=== PATIENT | female | born 1975 | race Caucasian/White ===

== ENCOUNTER 2022-09-26 16:14 | Emergency (ER) | payer OTHER, MEDICAID, SELFPAY ==
[2022-09-26 16:18] VITALS: BP 114/58; PULSE 100; RESP 16; TEMP 36.6; O2SAT 96; BMI 41.6
--- NOTE | 2022-09-26 17:14 | ED.RECABL ---
HPI - Recheck/Abnormal Lab/Rx <ALESSANDRA Covarrubias - Last Filed: 09/26/22 17:22> General Chief Complaint: Recheck/Abnormal Lab/Rx Stated Complaint: lumps/prescription refill Time Seen by Provider: 09/26/22 16:55 Source: patient Mode of arrival: Ambulatory History of Present Illness HPI narrative: This is a 47-year-old female presents emergency department complaining of some bumps on her skin from injecting drugs proximally 1 week ago which are healing without redness but patient was concerned. She also presents for a medication refill of her genfibrizol and lisinopril medications. She takes these for hypertension and hyperlipidemia. She denies fevers, chills, nausea vomiting, swelling, redness or any other signs related to her bumps on her skin just wanted them evaluated. She has multiple antibiotic allergies. Related Data Previous Rx's Medication Instructions Recorded gemfibrozil 600 mg tablet 600 mg PO BID #30 tabs 09/26/22 lisinopril 40 mg tablet 40 mg PO DAILY #30 tabs 09/26/22 lidocaine 4 % topical patch 1 patch topical DAILY PRN pain #10 10/18/22 ea methocarbamol 500 mg tablet 500 mg PO TID #30 tabs 10/18/22 methylprednisolone 4 mg tablets in See Rx Instructions PO .COMPLEX 10/18/22 a dose pack (Medrol (Durga)) #21 ea Allergies Allergy/AdvReac Type Severity Reaction Status Date / Time topiramate [From TOPAMAX] Allergy Unknown Verified 10/18/22 08:57 bupropion [From Wellbutrin] Allergy Verified 10/18/22 08:57 cephalexin [From Keflex] Allergy Verified 10/18/22 08:57 Iodinated Contrast Media Allergy Verified 10/18/22 08:57 sulfamethoxazole Allergy Verified 10/18/22 08:57 [From Bactrim] trimethoprim [From Bactrim] Allergy Verified 10/18/22 08:57 Review of Systems <ALESSANDRA Covarrubias - Last Filed: 09/26/22 17:22> Review of Systems ROS Unobtainable: All systems reviewed & are unremarkable except as noted in HPI and below Patient History <ALESSANDRA Covarrubias - Last Filed: 09/26/22 17:22> Surgical History History of tonsillectomy Status post delivery Status post delivery Status post delivery Status post cholecystectomy Status post tubal ligation Family History Father Heart disease Hypertension Heart attack Mother Mental health problem Hypertension Social History Smoking Status: Former smoker Smoking Status: Current every day smoker tobacco type: cigarettes Substance Use Type: does not use Exam <ALESSANDRA Covarrubias - Last Filed: 09/26/22 17:22> Narrative Exam Narrative: Reviewed vitals signs and nursing notes. General: Pleasant, sitting upright, in no acute distress, well groomed, afebrile HEENT: symmetrical facial expressions CV: regular rate and rhythm, warm extremities MSK: moves all extremities, no weakness, normal tone, ambulatory without deficit Skin: brisk capillary refill, 3 lumps related to previous injection sites, 1 to the left breast, 1 to the right forearm, in 1 2 the right buttock, patient states they are IM injections, no surrounding erythema, no fluctuance, no foreign body, no exquisite tenderness, no evidence of infection. Neuro: clear speech and normal cognition, A&O x3, GCS 15, no focal motor or sensation deficits Initial Vital Signs Initial Vital Signs: Vital Signs Temperature 97.8 F 09/26/22 16:18 Pulse Rate 100 H 09/26/22 16:18 Respiratory Rate 16 09/26/22 16:18 Blood Pressure 114/58 L 09/26/22 16:18 Pulse Oximetry 96 09/26/22 16:18 Oxygen Delivery Method Room Air 09/26/22 16:18 <Les Ochoa MD - Last Filed: 10/22/22 21:42> Initial Vital Signs Initial Vital Signs: Vital Signs Temperature 97.8 F 09/26/22 16:18 Pulse Rate 100 H 09/26/22 16:18 Respiratory Rate 16 09/26/22 16:18 Blood Pressure 114/58 L 09/26/22 16:18 Pulse Oximetry 96 09/26/22 16:18 Oxygen Delivery Method Room Air 09/26/22 16:18 Course <ALESSANDRA Covarrubias - Last Filed: 09/26/22 17:22> Vital Signs Vital signs: Vital Signs - 8 hr 09/26/22 16:18 Temperature 97.8 F Pulse Rate 100 H Respiratory Rate 16 Blood Pressure 114/58 L Pulse Oximetry 96 Oxygen Delivery Method Room Air <Les Ochoa MD - Last Filed: 10/22/22 21:42> Vital Signs Vital signs: Vital Signs - 8 hr 09/26/22 16:18 Temperature 97.8 F Pulse Rate 100 H Respiratory Rate 16 Blood Pressure 114/58 L Pulse Oximetry 96 Oxygen Delivery Method Room Air MDM - Recheck/Abnormal Lab/Rx <ALESSANDRA Covarrubias - Last Filed: 09/26/22 17:22> MDM Narrative Medical decision making narrative: Chief Complaint: Bumps on skin and medication refill Multiple etiologies for patient's complaint considered including, but not limited to: Cellulitis, abscess, MRSA, medication refill I have independently reviewed the patient's vital signs and nursing notes as well as prior records if available. Patient's lesions are not erythematous or fluctuant, they are firm approximally 1 cm each and normal skin tone related to previous IM injection sites, I do not suspect any infection at this time. Patient was reassured, she was given refills of her medications of lisinopril and gemfibrozil for 3 months and encouraged to follow up with primary care and given contact information to establish primary care here. She moved here approximately 5 days ago and does not have this set up. She understands to return to the emergency department if she develops signs of infection, fevers or chills, nausea vomiting. Social considerations that may affect disposition: none Questions are addressed and there is agreement with the plan and for follow-up. I consulted with the ED attending physician Dr. Ochoa as needed for higher level of care considerations and they were available for discussion and recommendations regarding plan of care and diagnostic testing. Patient is appropriate for outpatient management. Discharge Plan Departure Patient Disposition: Home Clinical Impression: Medication refill Activity Restrictions/Additional Instructions: *You have been diagnosed with a medication refill. 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 *What to do: *Please continue to take your regular medications as directed. [x ] New medication prescriptions sent to your pharmacy: [[facility] [place] ] [ ] New medication written as a paper prescription [ ] No new medications given *Please call and schedule follow up with your primary care provider in 2-3 days, at least for an update. Let them know you were seen in the Emergency Department for the above problem. We will electronically transmit a record of today's note if your PCP or specialist is in our system. *If you do not have a primary care provider please contact [phone] to establish care with one of the [facility] primary care providers. *Return to the Emergency Department for worsening symptoms, inability to keep liquids down, fever greater than 101F, chills, or other concerning symptom. Prescriptions: New gemfibrozil 600 mg tablet 600 mg PO BID Qty: 30 3RF lisinopril 40 mg tablet 40 mg PO DAILY Qty: 30 3RF No Action methocarbamol 500 mg tablet 500 mg PO TID Qty: 30 0RF methylprednisolone [Medrol (Durga)] 4 mg tablets,dose pack See Rx Instructions .ROUTE .COMPLEX Qty: 21 0RF Rx Instructions: orally per package directions lidocaine 4 % adhesive patch,medicated 1 patch topical DAILY PRN (Reason: pain) Qty: 10 0RF Stand Alone Forms: Patient Portal/API <Les Ochoa MD - Last Filed: 10/22/22 21:42> [facility] Attestation: I was immediately available in the department for consultation. This documentation has been reviewed and I agree with assessment and plan. Supervised by Les Ochoa MD
[2022-09-26 17:20] VITALS: BP 118/87; PULSE 90; RESP 18; O2SAT 99
== END 2022-09-26 17:21 | disposition home or self-care (01) ==
PROVIDERS: Emergency Provider Nurse Practitioner Critical Care Medicine
DX: Z76.0 Encounter for issue of repeat prescription (principal); L08.9 Local infection of the skin and subcutaneous tissue, unspecified
CPT/HCPCS: 99281

== ENCOUNTER 2022-10-15 16:24 | Emergency (ER) | payer OTHER, MEDICAID, SELFPAY ==
[2022-10-15 17:06] VITALS: BP 139/85; PULSE 103; RESP 16; TEMP 36.9; O2SAT 96; BMI 42.3
[2022-10-15 17:32] LABS: Add Manual Diff / Slide Review NO; Basophils Absolute Auto 100 /uL (0-100); Basophils Percent Auto 1.1 % (0-2); Eosinophils Absolute Auto 200 /uL (0-450); Hematocrit 37.7 % (36-46); Hemoglobin 12.6 g/dL (12.0-16.0); Lymphocytes Absolute Auto 2100 /uL (1100-4500); Lymphocytes Percent Auto 26.9 % (25-40); Mean Corpuscular HGB Conc 33.4 % (30-36); Mean Corpuscular Volume 80.9 fL (80-100); Monocytes Absolute Auto 800 /uL (0-900); Monocytes Percent Auto 9.8 % (3-14); Neutrophils Absolute Auto 4700 /uL (1500-7000); Neutrophils Percent Auto 60.2 % (50-75); Platelet Count 264 X10^3/uL (150-400); Red Blood Cell Count 4.66 X10^6/uL (4.0-5.2); Red Cell Distribution Width 14.2 % (11.6-14.8); White Blood Cell Count 7.8 X10^3/uL (4.5-11.0)
[2022-10-15 17:37] LABS: Alanine Aminotransferase 20 IU/L (<35); Albumin 4.1 g/dL (3.5-5.0); Albumin Globulin Ratio 1.2 (1.0-2.8); Alkaline Phosphatase 126 U/L (38-126); Aspartate Aminotransferase 24 IU/L (14-36); BUN Creatinine Ratio 24.6 (6-22); Bilirubin Total 0.3 mg/dL (0.2-1.3); Blood Urea Nitrogen 15 mg/dL (7-17); Calcium 9.7 mg/dL (8.4-10.2); Carbon Dioxide 24 mmol/L (22-32); Chloride 94 mmol/L (98-107); Estimated Glomerular Filt Rate > 60 mL/min (>60); Globulin 3.4 g/dL (1.7-4.1); Glucose 262 mg/dL (70-100); HEMOLYSIS 25 (0-50); Lipase 96 U/L (23-300); Potassium 4.6 mmol/L (3.4-5.1); Sodium 131 mmol/L (137-145); Total Protein 7.5 g/dL (6.3-8.2)
--- NOTE | 2022-10-15 19:14 | DI.RAD.S_ITS ---
PROCEDURE: XR ABDOMEN 1V INDICATIONS: constipation and back pain TECHNIQUE: One view of the abdomen acquired. COMPARISON: None. FINDINGS: Surgical changes and devices: Cholecystectomy clips.. Bowel: There are fluid levels in nondistended right-sided bowel loops. No suspicious air-filled distended small bowel loops to suggest obstruction. Normal quantity of colonic stool present. Soft tissues: 7 mm horizontally oriented ovoid calcification in the abdomen to the left of midline. No other suspicious abdominal calcifications. Visualized solid organ contours appear normal in size. Bones: No suspicious bony lesions. IMPRESSION: 1. Fluid levels in nondilated bowel suggest ileus or enteritis. 2. Nonspecific left abdominal calcification may be enteric, vascular, or urinary. 3. Normal quantity of stool present. Dictated by: Elizabeth Snell M.D. on 10/15/2022 at 20:26 Approved by: Elizabeth Snell M.D. on 10/15/2022 at 20:28
--- NOTE | 2022-10-15 20:57 | DI.CT.S_ITS ---
PROCEDURE: CT ABDOMEN PELVIS WO CON INDICATIONS: Abdominal pain, eval for obstruction TECHNIQUE: Axial sections were acquired from the lung bases to the pubic symphysis. Coronal and sagittal reformats were performed. For radiation dose reduction, the following was used: automated exposure control, adjustment of mA and/or kV according to patient size. COMPARISON: [facility], CR, XR ABDOMEN 1V, 10/15/2022, 19:17. [facility], CT, ABDOMEN/PELVIS WITH CONTRAST, 07/31/2015, 23:51. FINDINGS: Image quality: Excellent. Lung bases: Unremarkable. Heart: No significant findings. URINARY: Kidneys and ureters: Small left renal cortical calcifications. No definite renal or ureteral calculus. No hydronephrosis. Bladder: Normal wall thickness. No stones. ABDOMEN: Liver: Liver is diffusely hypoattenuating, consistent with fatty infiltration. Gallbladder: Status post cholecystectomy. Biliary ducts: Unremarkable. Pancreas: Unremarkable. Spleen: Unremarkable. Adrenal Glands: Unremarkable. Stomach and Bowel: Moderate stool is seen throughout the colon. Small bowel loops and stomach are unremarkable. Peritoneum: No abnormal intraperitoneal fluid. No free air. Ventral Wall: A small collection of fluid measuring 2.9 x 2.5 cm is seen in the subcutaneous tissues in the periumbilical region. Subcutaneous nodules in the bilateral flanks is suspicious for injection granulomas. Abdominal Nodes: No enlarged retroperitoneal or mesenteric lymph nodes. Vessels: Aorta and inferior vena cava are normal in size. PELVIS: Pelvic Organs: Uterus appears to be mildly long gated and is likely here into the anterior abdominal wall. Pelvic Nodes: Unremarkable. Miscellaneous: No inguinal hernias are seen. Bones: Unremarkable. IMPRESSION: 1. No renal or ureteral calculus or hydronephrosis. 2. Small fluid collection is seen in the subcutaneous tissues in the right periumbilical region with mild surrounding inflammatory fat stranding, possibly representing focal soft tissue infection or developing abscess. Approved by: Aiden Franz M.D. on 10/15/2022 at 23:24
--- NOTE | 2022-10-15 20:57 | ED.GENADULT ---
HPI - General Adult General Chief complaint: Abdominal Pain Stated complaint: ABD PAIN , BACK PAIN ,CONSTIPATED 3 DAYS Time Seen by Provider: 10/15/22 19:13 Source: patient Mode of arrival: Ambulatory History of Present Illness HPI narrative: Patient is a 47-year-old female who is here for evaluation of what she thinks is constipation and low back pain. It has been going on for the past 3 days. She has been doing stool softeners for the past week. Also did 1 dose of MiraLax at home. No vomiting. Is still passing flatus. No urinary symptoms. Has had multiple abdominal surgeries in the past. She states she does feel like her abdomen is distended. Related Data Previous Rx's Medication Instructions Recorded gemfibrozil 600 mg tablet 600 mg PO BID #30 tabs 09/26/22 lisinopril 40 mg tablet 40 mg PO DAILY #30 tabs 09/26/22 Allergies Allergy/AdvReac Type Severity Reaction Status Date / Time topiramate [From TOPAMAX] Allergy Unknown Verified 10/15/22 20:47 bupropion [From Wellbutrin] Allergy Verified 10/15/22 20:47 cephalexin [From Keflex] Allergy Verified 10/15/22 20:47 Iodinated Contrast Media Allergy Verified 10/15/22 20:47 sulfamethoxazole Allergy Verified 10/15/22 20:47 [From Bactrim] trimethoprim [From Bactrim] Allergy Verified 10/15/22 20:47 Review of Systems Constitutional Constitutional: Reports system reviewed and no additional complaints, except as documented Gastrointestinal Gastrointestinal: Reports system reviewed and no additional complaints, except as documented Genitourinary Genitourinary: Reports system reviewed and no additional complaints, except as documented Musculoskeletal Musculoskeletal: Reports system reviewed and no additional complaints, except as documented Integumentary/Breasts Skin/Breast: Reports system reviewed and no additional complaints, except as documented Patient History Surgical History History of tonsillectomy Status post delivery Status post delivery Status post delivery Status post cholecystectomy Status post tubal ligation Family History Father Heart disease Hypertension Heart attack Mother Mental health problem Hypertension Social History (Reviewed 08/21/23 @ 23:44 by HENRY Bah Smoking Status: Former smoker Smoking Status: Former smoker tobacco type: cigarettes Substance Use Type: does not use Exam Initial Vital Signs Initial Vital Signs: Vital Signs Temperature 98.5 F 10/15/22 17:06 Pulse Rate 103 H 10/15/22 17:06 Respiratory Rate 16 10/15/22 17:06 Blood Pressure 139/85 10/15/22 17:06 Pulse Oximetry 96 10/15/22 17:06 Oxygen Delivery Method Room Air 10/15/22 17:06 HENDC Head: normal to inspection and normocephalic Resp Effort & Inspection: normal respiratory effort Auscultation: clear to auscultation bilaterally Cardio Rate: regular rate GI Inspection: normal to inspection and distended Palpation: soft, No firm, No guarding and tender Skin General: no rashes or lesions noted Neuro General: patient alert, patient awake, patient oriented x3 and moves all extremities Course Orders Ordered: ED Orders 10/15/22 17:18 Complete Blood Count AUTO DIFF Stat Comprehensive Metabolic Panel Stat Lipase Stat 10/15/22 19:14 XR abdomen 1V Stat 10/15/22 20:57 CT abdomen pelvis wo con Stat Ondansetron HCl (Ondansetron 4 Mg Odt) 4 mg PO NOW PRN PRN Reason: Nausea And Vomiting Ondansetron HCl (Ondansetron 4 Mg/2 Ml Inj) 4 mg IV NOW PRN PRN Reason: Nausea And Vomiting Discontinued Medications Sodium Chloride (Normal Saline 0.9%) 1,000 mls @ 1,000 mls/hr IV BOLUS ONE Stop: 10/15/22 21:56 Last Infusion: 10/15/22 23:17 Dose: 0 mls/hr Documented By: Admin: 10/15/22 21:45 Dose: 1,000 mls/hr Documented By: MENDY Ketorolac Tromethamine (Ketorolac 30 Mg/Ml Vial) 30 mg IV NOW ONE Stop: 10/15/22 21:41 Last Admin: 10/15/22 21:46 Dose: 30 mg Documented By: MENDY Vital Signs Vital signs: Vital Signs - 8 hr 10/15/22 17:06 10/15/22 23:39 Temperature 98.5 F Pulse Rate 103 H 88 Respiratory Rate 16 15 Blood Pressure 139/85 120/79 Pulse Oximetry 96 99 Oxygen Delivery Method Room Air Room Air Medical Decision Making Lab Data Lab results reviewed: Yes I reviewed the patient's lab results. 10/15/22 17:18 10/15/22 17:18 Labs: Lab Results 10/15/22 10/15/22 Range/Units 17:18 17:18 WBC 7.8 (4.5-11.0) X10^3/uL RBC 4.66 (4.0-5.2) X10^6/uL Hgb 12.6 (12.0-16.0) g/dL Hct 37.7 (36-46) % MCV 80.9 (80-100) fL MCH 27.0 (26-34) PG MCHC 33.4 (30-36) % RDW 14.2 (11.6-14.8) % Plt Count 264 (150-400) X10^3/uL Neut % (Auto) 60.2 (50-75) % Lymph % (Auto) 26.9 (25-40) % [place] % (Auto) 9.8 (3-14) % Eos % (Auto) 2.0 (2-4) % Baso % (Auto) 1.1 (0-2) % Neut # (Auto) 4700 (1482-2104) /uL Lymph # (Auto) 2100 (3617-1609) /uL [place] # (Auto) 800 (0-900) /uL Eos # (Auto) 200 (0-450) /uL Baso # (Auto) 100 (0-100) /uL Sodium 131 L (137-145) mmol/L Potassium 4.6 (3.4-5.1) mmol/L Chloride 94 L (98-107) mmol/L Carbon Dioxide 24 (22-32) mmol/L BUN 15 (7-17) mg/dL Creatinine 0.61 (0.52-1.04) mg/dL Estimated GFR > 60 (>60) mL/min BUN/Creatinine Ratio 24.6 H (6-22) Glucose 262 H (70-100) mg/dL Calcium 9.7 (8.4-10.2) mg/dL Total Bilirubin 0.3 (0.2-1.3) mg/dL AST 24 (14-36) IU/L ALT 20 (<35) IU/L Alkaline Phosphatase 126 (38-126) U/L Total Protein 7.5 (6.3-8.2) g/dL Albumin 4.1 (3.5-5.0) g/dL Globulin 3.4 (1.7-4.1) g/dL Albumin/Globulin Ratio 1.2 (1.0-2.8) Lipase 96 (23-300) U/L Point of Care Testing Test Results Negative Urine Dip Bedside Urine Glucose 100 mg/dl Bedside Urine Bilirubin - Negative Bedside Urine Ketone - Negative Urine Specific [place] 1.015 Bedside Urine Occult Blood - Negative Bedside Urine pH 6 Bedside Urine Protein - Negative Bedside Urine Urobilinogen - Negative Bedside Urine Nitrite - Negative Bedside Urine Leukocytes - Negative Esterase Point of care testing: Point of Care Testing Test Results Negative Urine Dip Bedside Urine Glucose 100 mg/dl Bedside Urine Bilirubin - Negative Bedside Urine Ketone - Negative Urine Specific [place] 1.015 Bedside Urine Occult Blood - Negative Bedside Urine pH 6 Bedside Urine Protein - Negative Bedside Urine Urobilinogen - Negative Bedside Urine Nitrite - Negative Bedside Urine Leukocytes - Negative Esterase Imaging Data Abdominal x-ray: Radiologist's Impression: PROCEDURE:? XR ABDOMEN 1V ? INDICATIONS:? constipation and back pain ? TECHNIQUE:? One view of the abdomen acquired.? ? COMPARISON:? None. ? FINDINGS:? ? Surgical changes and devices:? Cholecystectomy clips..? ? Bowel:? There are fluid levels in nondistended right-sided bowel loops.? No suspicious air-filled distended small bowel loops to suggest obstruction.? Normal quantity of colonic stool present. ? Soft tissues: 7 mm horizontally oriented ovoid calcification in the abdomen to the left of midline. No other suspicious abdominal calcifications.? Visualized solid organ contours appear normal in size.? ? Bones:? No suspicious bony lesions.? ? IMPRESSION:? ? 1. Fluid levels in nondilated bowel suggest ileus or enteritis. ? 2. Nonspecific left abdominal calcification may be enteric, vascular, or urinary.? ? 3. Normal quantity of stool present.? CT scan - abdomen/pelvis: Radiologist's Impression: PROCEDURE:? CT ABDOMEN PELVIS WO CON ? INDICATIONS:? Abdominal pain, eval for obstruction ? TECHNIQUE:? Axial sections were acquired from the lung bases to the pubic symphysis.? Coronal and sagittal reformats were performed.? For radiation dose reduction, the following was used: ?automated exposure control, adjustment of mA and/or kV according to patient size.? ? COMPARISON:? [facility], CR, XR ABDOMEN 1V, 10/15/2022, 19:17.? [facility], CT, ABDOMEN/PELVIS WITH CONTRAST, 07/31/2015, 23:51. ? FINDINGS:? Image quality:? Excellent.? ? Lung bases:? Unremarkable.? ? Heart:? No significant findings. ? URINARY: Kidneys and ureters:? Small left renal cortical calcifications.? No definite renal or ureteral calculus.? No hydronephrosis. ? Bladder:? Normal wall thickness. No stones. ? ? ? ABDOMEN: Liver:? Liver is diffusely hypoattenuating, consistent with fatty infiltration.? ? Gallbladder:? Status post cholecystectomy.? ? Biliary ducts:? Unremarkable.? ? Pancreas:? Unremarkable.? ? Spleen:? Unremarkable.? ? Adrenal Glands:? Unremarkable.? ? ? Stomach and Bowel:? Moderate stool is seen throughout the colon.? Small bowel loops and stomach are unremarkable. Peritoneum:? No abnormal intraperitoneal fluid.? No free air.? ? Ventral Wall: ? A small collection of fluid measuring 2.9 x 2.5 cm is seen in the subcutaneous tissues in the periumbilical region.? Subcutaneous nodules in the bilateral flanks is suspicious for injection granulomas. Abdominal Nodes:? No enlarged retroperitoneal or mesenteric lymph nodes.? Vessels:? Aorta and inferior vena cava are normal in size.? ? PELVIS: Pelvic Organs:? Uterus appears to be mildly long gated and is likely here into the anterior abdominal wall. Pelvic Nodes: Unremarkable. Miscellaneous: No inguinal hernias are seen. ? ? ? Bones:? Unremarkable. ? IMPRESSION:? 1. No renal or ureteral calculus or hydronephrosis. 2. Small fluid collection is seen in the subcutaneous tissues in the right periumbilical region with mild surrounding inflammatory fat stranding, possibly representing focal soft tissue infection or developing abscess. MDM Narrative Medical decision making narrative: Patient does have a distended abdomen but it is soft. No vomiting. No fevers. No urinary symptoms. Abdominal x-ray does show ileus but not consistent with constipation. CT scan shows no acute pathology and a moderate amount of stool. No indication for surgical consultation. No fevers. We did discuss constipation things that she can try at home to help with this to include laxatives and stool softeners. Patient states she is feeling better after medication here in the ER. Will discharge patient home. She was given return precautions. She expressed understanding and agreement. Discharge Plan Departure Patient Disposition: Home Clinical Impression: Abdominal pain, Constipation Instructions: DI for Constipation Activity Restrictions/Additional Instructions: Recommend that you increase your fluid intake. I also recommend that you continue to take the laxatives like we discussed. MiraLax would be a good choice. Contact your primary doctor for a follow-up. Return to the emergency department for new symptoms. Prescriptions: No Action gemfibrozil 600 mg tablet 600 mg PO BID Qty: 30 3RF lisinopril 40 mg tablet 40 mg PO DAILY Qty: 30 3RF Stand Alone Forms: Patient Portal/API
[2022-10-15] MEDS: SODIUM CHLORIDE 0.9% 1,000 ML 1000 ML IV (21:45)
[2022-10-15] MEDS: KETOROLAC 30 MG/ML VIAL IV (21:46)
[2022-10-15 23:39] VITALS: BP 120/79; PULSE 88; RESP 15; O2SAT 99
[2022-10-15 23:52] VITALS: BP 117/71; PULSE 80; RESP 18; O2SAT 94
== END 2022-10-15 23:53 | disposition home or self-care (01) ==
PROVIDERS: Emergency Medicine; Emergency Provider Emergency Medicine
DX: R10.9 Unspecified abdominal pain (principal); K59.00 Constipation, unspecified
CPT/HCPCS: 74018; 74176; 80053; 81003; 81025; 83690; 85025; 96374; 99283; 99284; J1885

== ENCOUNTER 2022-10-18 08:48 | Emergency (ER) | payer OTHER, SELFPAY ==
--- NOTE | 2022-10-18 08:54 | ED_ITS ---
HPI - Back Pain/Injury General Chief Complaint: Back Pain/Injury Stated Complaint: l lower back pain hard time walking Time Seen by Provider: 10/18/22 08:52 History of Present Illness HPI Narrative: 47-year-old female presents for approximately 5 days of gradually worsening left-sided lumbar back pain. Patient states that approximately 1 week ago she felt like she had to pop her back and requested that her young son stepped on her back. Denies any injury at the time, however since then she has noticed gradually worsening left-sided lumbar pain with ambulation. She states that when sitting or standing the pain is not bad, however after walking for several blocks she feels significant pain and asked to call to have someone pick her up. Of note, patient did ambulate from her house to the emergency department. Has been taking Tylenol and Motrin at home with minimal relief of pain. Denies bowel or bladder incontinence, denies saddle anesthesia. Denies numbness, weakness. Related Data Previous Rx's Medication Instructions Recorded gemfibrozil 600 mg tablet 600 mg PO BID #30 tabs 09/26/22 lisinopril 40 mg tablet 40 mg PO DAILY #30 tabs 09/26/22 lidocaine 4 % topical patch 1 patch topical DAILY PRN pain #10 10/18/22 ea methocarbamol 500 mg tablet 500 mg PO TID #30 tabs 10/18/22 methylprednisolone 4 mg tablets in See Rx Instructions PO .COMPLEX 10/18/22 a dose pack (Medrol (Durga)) #21 ea Allergies Allergy/AdvReac Type Severity Reaction Status Date / Time topiramate [From TOPAMAX] Allergy Unknown Verified 10/18/22 08:57 bupropion [From Wellbutrin] Allergy Verified 10/18/22 08:57 cephalexin [From Keflex] Allergy Verified 10/18/22 08:57 Iodinated Contrast Media Allergy Verified 10/18/22 08:57 sulfamethoxazole Allergy Verified 10/18/22 08:57 [From Bactrim] trimethoprim [From Bactrim] Allergy Verified 10/18/22 08:57 Review of Systems Review of Systems Narrative: CONSTITUTIONAL- Denies: fever, chills, HEENT- Denies: sore throat, nosebleed, vision changes RESPIRATORY- Denies: shortness of breath, cough, wheezing CARDIAC- Denies: chest pain, edema, orthopnea GI- Denies: abdominal pain, nausea, vomiting, constipation, diarrhea - Denies: frequency, dysuria, hematuria, flank pain MSK-reports: Back pain Denies: extremity pain, extremity swelling, joint pain, joint swelling SKIN- Denies: rash, itching, burn, swelling NEUROLOGICAL- Denies: headache, numbness, weakness, dizziness PSYCHIATRIC- Denies: anxiety, depression, suicidal ideation, homicidal ideation Patient History Surgical History History of tonsillectomy Status post delivery Status post delivery Status post delivery Status post cholecystectomy Status post tubal ligation Family History Father Heart disease Hypertension Heart attack Mother Mental health problem Hypertension Social History Smoking Status: Former smoker Smoking Status: Former smoker tobacco type: cigarettes Substance Use Type: does not use Exam Narrative Exam Narrative: Const: Well-nourished, Well-developed, appears stated age Eyes: PERRL, EOMI, conjunctiva normal ENT: Atraumatic, dentition normal, mucous membranes moist Cardiac: regular rate, regular rhythm RESP: unlabored, clear bilaterally, no wheezing GI: Atraumatic, nontender, nondistended, no rebound, no guarding Back: Atraumatic, full range of motion, no midline vertebral tenderness, left- sided lumbar paraspinal muscle tenderness to palpation MSK: Atraumatic, full range of motion, pulses equal Skin: Warm, Dry, intact, no rashes Neuro: AO x3, CN II-XII grossly intact, moves all extremities, gait normal Psych: affect normal, mood normal, not suicidal, not homicidal Initial Vital Signs Initial Vital Signs: Vital Signs Temperature 97.0 F L 10/18/22 08:57 Pulse Rate 100 H 10/18/22 08:57 Respiratory Rate 16 10/18/22 08:57 Blood Pressure 134/75 10/18/22 08:57 Pulse Oximetry 99 10/18/22 08:57 Oxygen Delivery Method Room Air 10/18/22 08:57 Course Course Course Narrative: Well-appearing patient with musculoskeletal back pain. No signs or symptoms of cauda equina, no midline vertebral tenderness, no indication for imaging at this time. Patient likely has musculoskeletal strain versus muscle spasm. Patient was counseled on her diagnosis as well as gentle stretching exercises that she may perform for pain control. Counseled to continue taking Tylenol and Motrin for pain and will add short course of steroids as well as muscle relaxers and lidocaine patches. Patient given handout for stretches that she may perform at home for lumbar back pain. ED return precautions discussed. Patient expressed understanding of the plan and is in agreement at this time. All questions answered at the time of discharge. Orders Ordered: Discontinued Medications Acetaminophen (Acetaminophen 325 Mg Tablet) 975 mg PO NOW ONE Stop: 10/18/22 09:05 Last Admin: 10/18/22 09:18 Dose: 975 mg Documented By: YESENIA Dexamethasone (Dexamethasone 10 Mg/Ml Vial) 10 mg PO NOW ONE Stop: 10/18/22 09:05 Last Admin: 10/18/22 09:20 Dose: 10 mg Documented By: YESENIA Ketorolac Tromethamine (Ketorolac 30 Mg/Ml Vial) 30 mg IM NOW ONE Stop: 10/18/22 09:05 Last Admin: 10/18/22 09:20 Dose: 30 mg Documented By: YESENIA Lidocaine (Lidocaine Patch 1 Each Adh..Patch) 1 each TOP NOW ONE Stop: 10/18/22 09:05 Last Admin: 10/18/22 09:20 Dose: 1 each Documented By: YESENIA Methocarbamol (Methocarbamol 500 Mg Tablet) 750 mg PO NOW ONE Stop: 10/18/22 09:05 Last Admin: 10/18/22 09:16 Dose: 750 mg Documented By: YESENIA Vital Signs Vital signs: Vital Signs - 8 hr 10/18/22 08:57 10/18/22 09:39 Temperature 97.0 F L Pulse Rate 100 H 87 Respiratory Rate 16 14 Blood Pressure 134/75 113/69 Pulse Oximetry 99 95 Oxygen Delivery Method Room Air Room Air MDM - Back Pain/Injury Differential Diagnosis Differential diagnosis: Likely lumbar radiculopathy, sciatica and strain of lumbar region Discharge Plan Departure Patient Disposition: Home Clinical Impression: Lumbar back pain, Strain of lumbar region Instructions: DI for Back Strain or Sprain Prescriptions: New methocarbamol 500 mg tablet 500 mg PO TID Qty: 30 0RF methylprednisolone [Medrol (Durga)] 4 mg tablets,dose pack See Rx Instructions .ROUTE .COMPLEX Qty: 21 0RF Rx Instructions: orally per package directions lidocaine 4 % adhesive patch,medicated 1 patch topical DAILY PRN (Reason: pain) Qty: 10 0RF No Action gemfibrozil 600 mg tablet 600 mg PO BID Qty: 30 3RF lisinopril 40 mg tablet 40 mg PO DAILY Qty: 30 3RF Stand Alone Forms: Patient Portal/API
[2022-10-18 08:57] VITALS: BP 134/75; PULSE 100; RESP 16; TEMP 36.1; O2SAT 99; BMI 43.4
[2022-10-18] MEDS: methocarbamoL 500 MG TABLET 750 MG PO (09:16)
[2022-10-18] MEDS: ACETAMINOPHEN 325 MG TABLET 975 MG PO (09:18)
[2022-10-18] MEDS: LIDOCAINE PATCH 1 EACH ADH..PATCH TOP (09:20)
[2022-10-18] MEDS: KETOROLAC 30 MG/ML VIAL IM (09:20)
[2022-10-18] MEDS: DEXAMETHASONE 10 MG/ML VIAL PO (09:20)
--- NOTE | 2022-10-18 09:25 | PC.NURSE ---
Pt denies loss bowel/bladder. Pt had back pain and then had her son step on her back.
[2022-10-18 09:39] VITALS: BP 113/69; PULSE 87; RESP 14; O2SAT 95
== END 2022-10-18 09:39 | disposition home or self-care (01) ==
PROVIDERS: Emergency Provider Emergency Medicine
DX: S39.012A Strain of muscle, fascia and tendon of lower back, initial encounter (principal); X58.XXXA Exposure to other specified factors, initial encounter; Y93.9 Activity, unspecified
CPT/HCPCS: 96372; 99283; J1100; J1885

== ENCOUNTER 2022-10-18 23:58 | Emergency (ER) | payer OTHER, MEDICAID, SELFPAY ==
[2022-10-19] VITALS (10 sets, daily range): BP systolic 108–186; BP diastolic 59–88; PULSE 78–93; RESP 15–16; TEMP 36.1; O2SAT 93–97; BMI 42.3
[2022-10-19] MEDS: INSULIN REGULAR 100 UNIT/ML 3 ML VIAL 10 UNIT SUBCUT (00:38)
[2022-10-19] MEDS: SODIUM CHLORIDE 0.9% 1,000 ML 1000 ML IV (00:45)
[2022-10-19 00:52] LABS: Add Manual Diff / Slide Review NO; Basophils Absolute Auto 100 /uL (0-100); Basophils Percent Auto 0.4 % (0-2); Eosinophils Absolute Auto 0 /uL (0-450); Eosinophils Percent Auto 0.1 % (2-4); Hematocrit 35.2 % (36-46); Hemoglobin 11.8 g/dL (12.0-16.0); Lymphocytes Absolute Auto 900 /uL (1100-4500); Lymphocytes Percent Auto 6.4 % (25-40); Mean Corpuscular HGB Conc 33.3 % (30-36); Mean Corpuscular Hemoglobin 27.4 PG (26-34); Mean Corpuscular Volume 82.1 fL (80-100); Monocytes Absolute Auto 500 /uL (0-900); Monocytes Percent Auto 3.7 % (3-14); Neutrophils Absolute Auto 12600 /uL (1500-7000); Neutrophils Percent Auto 89.4 % (50-75); Platelet Count 284 X10^3/uL (150-400); Red Blood Cell Count 4.29 X10^6/uL (4.0-5.2); Red Cell Distribution Width 13.4 % (11.6-14.8); White Blood Cell Count 14.1 X10^3/uL (4.5-11.0)
[2022-10-19 01:02] LABS: Aspartate Aminotransferase 27 IU/L (14-36); BUN Creatinine Ratio 31.5 (6-22); Bilirubin Total 0.3 mg/dL (0.2-1.3); Blood Urea Nitrogen 23 mg/dL (7-17); Calcium 9.5 mg/dL (8.4-10.2); Carbon Dioxide 21 mmol/L (22-32); Chloride 96 mmol/L (98-107); Estimated Glomerular Filt Rate > 60 mL/min (>60); Glucose 450 mg/dL (70-100); HEMOLYSIS < 15 (0-50); Potassium 4.8 mmol/L (3.4-5.1); Sodium 130 mmol/L (137-145)
[2022-10-19 01:03] LABS: Albumin 4.1 g/dL (3.5-5.0); Albumin Globulin Ratio 1.2 (1.0-2.8); Alkaline Phosphatase 117 U/L (38-126); Globulin 3.3 g/dL (1.7-4.1); Total Protein 7.4 g/dL (6.3-8.2)
--- NOTE | 2022-10-19 01:05 | ED_ITS ---
HPI - General Adult General Chief complaint: Diabetic Problem Stated complaint: Sugar level high 465 Time Seen by Provider: 10/18/22 23:59 Source: patient Mode of arrival: Ambulatory Limitations: no limitations History of Present Illness HPI narrative: Patient is a 47-year-old female. He is an insulin-dependent diabetic. Was seen here in the emergency department 2 days ago for myself by abdominal pain and constipation. She states that she did do the laxatives and did have a large bowel movement and then started to have some diarrhea. Her abdominal pain that she presented with a that point is actually gone however she started to develop some lower back pain. She stated that she felt like her back just needed to ?pop? so she had her son walk on her back and that ?tweaked? her back. She was seen here in the emergency department for that yesterday. Received medications and a dose of steroids. She states that this evening she was checking her blood sugars and they were elevated. States that at baseline she is normally in the mid 200 range however they were above 400. She became concerned about this. He is still having some back discomfort but it is not worse than what it was during her last visit. Related Data Previous Rx's Medication Instructions Recorded gemfibrozil 600 mg tablet 600 mg PO BID #30 tabs 09/26/22 lisinopril 40 mg tablet 40 mg PO DAILY #30 tabs 09/26/22 lidocaine 4 % topical patch 1 patch topical DAILY PRN pain #10 10/18/22 ea methocarbamol 500 mg tablet 500 mg PO TID #30 tabs 10/18/22 methylprednisolone 4 mg tablets in See Rx Instructions PO .COMPLEX 10/18/22 a dose pack (Medrol (Durga)) #21 ea Allergies Allergy/AdvReac Type Severity Reaction Status Date / Time topiramate [From TOPAMAX] Allergy Unknown Verified 10/18/22 08:57 bupropion [From Wellbutrin] Allergy Verified 10/18/22 08:57 cephalexin [From Keflex] Allergy Verified 10/18/22 08:57 Iodinated Contrast Media Allergy Verified 10/18/22 08:57 sulfamethoxazole Allergy Verified 10/18/22 08:57 [From Bactrim] trimethoprim [From Bactrim] Allergy Verified 10/18/22 08:57 Review of Systems Constitutional Constitutional: Reports system reviewed and no additional complaints, except as documented Gastrointestinal Gastrointestinal: Reports system reviewed and no additional complaints, except as documented Musculoskeletal Musculoskeletal: Reports system reviewed and no additional complaints, except as documented Integumentary/Breasts Skin/Breast: Reports system reviewed and no additional complaints, except as documented Neurologic Neurologic: Reports system reviewed and no additional complaints, except as documented Patient History Surgical History History of tonsillectomy Status post delivery Status post delivery Status post delivery Status post cholecystectomy Status post tubal ligation Family History Father Heart disease Hypertension Heart attack Mother Mental health problem Hypertension Social History Smoking Status: Former smoker Smoking Status: Former smoker tobacco type: cigarettes alcohol intake frequency: holidays/special occasions only Substance Use Type: former substance user Exam Initial Vital Signs Initial Vital Signs: Vital Signs Pulse Rate 93 H 10/19/22 00:04 Pulse Oximetry 97 10/19/22 00:04 Oxygen Delivery Method Room Air 10/19/22 00:04 Const General: cooperative, comfortable and No ill appearing HENMT Head: normal to inspection and normocephalic Resp Effort & Inspection: normal respiratory effort Cardio Rate: regular rate GI Inspection: non-distended Palpation: soft and No tender Neuro General: patient alert and patient awake Course Orders Ordered: ED Orders 10/19/22 00:42 Complete Blood Count AUTO DIFF Stat Comprehensive Metabolic Panel Stat Discontinued Medications Hydrocodone Bitart/Acetaminophen (Hydrocodone/Acet 5/325 Prepack) 1 bottle MISC SEEINSTR ONE Stop: 10/19/22 01:50 Last Admin: 10/19/22 01:58 Dose: 1 bottle Sodium Chloride (Normal Saline 0.9%) 1,000 mls @ 1,000 mls/hr IV BOLUS ONE Stop: 10/19/22 01:13 Last Infusion: 10/19/22 01:40 Dose: 0 mls/hr Documented By: Admin: 10/19/22 00:45 Dose: 1,000 mls/hr Documented By: ION Insulin Human Regular (Insulin Regular 100 Unit/Ml 3 Ml Vial) 10 unit SUBCUT NOW ONE Stop: 10/19/22 00:16 Last Admin: 10/19/22 00:38 Dose: 10 unit Documented By: ION Co-signed By: DUSTIN Vital Signs Vital signs: Vital Signs - 8 hr 10/19/22 00:08 10/19/22 00:04 10/19/22 00:14 Temperature 97 F L Pulse Rate 90 93 H Respiratory Rate 15 Blood Pressure 186/88 H 137/64 Pulse Oximetry 96 97 Oxygen Delivery Method Room Air Room Air 10/19/22 00:14 10/19/22 00:30 10/19/22 00:31 Temperature Pulse Rate 86 92 H 88 Respiratory Rate Blood Pressure Pulse Oximetry 94 94 94 Oxygen Delivery Method Room Air Room Air Room Air 10/19/22 00:31 10/19/22 00:55 10/19/22 01:00 Temperature Pulse Rate 84 Respiratory Rate Blood Pressure 123/59 L 116/64 Pulse Oximetry Oxygen Delivery Method 10/19/22 01:30 10/19/22 01:59 10/19/22 02:00 Temperature Pulse Rate 79 Respiratory Rate 16 Blood Pressure 119/66 108/62 Pulse Oximetry 93 Oxygen Delivery Method Room Air 10/19/22 02:00 Temperature Pulse Rate 78 Respiratory Rate Blood Pressure Pulse Oximetry 93 Oxygen Delivery Method Room Air Medical Decision Making Medical Records Medical records reviewed: Yes I reviewed the patient's medical records. Lab Data Lab results reviewed: Yes I reviewed the patient's lab results. 10/19/22 00:42 10/19/22 00:42 Labs: Lab Results 10/19/22 10/19/22 Range/Units 00:42 00:42 WBC 14.1 H (4.5-11.0) X10^3/uL RBC 4.29 (4.0-5.2) X10^6/uL Hgb 11.8 L (12.0-16.0) g/dL Hct 35.2 L (36-46) % MCV 82.1 (80-100) fL MCH 27.4 (26-34) PG MCHC 33.3 (30-36) % RDW 13.4 (11.6-14.8) % Plt Count 284 (150-400) X10^3/uL Neut % (Auto) 89.4 H (50-75) % Lymph % (Auto) 6.4 L (25-40) % Osborne % (Auto) 3.7 (3-14) % Eos % (Auto) 0.1 L (2-4) % Baso % (Auto) 0.4 (0-2) % Neut # (Auto) 86433 H (0216-9834) /uL Lymph # (Auto) 900 L (0311-9391) /uL Osborne # (Auto) 500 (0-900) /uL Eos # (Auto) 0 (0-450) /uL Baso # (Auto) 100 (0-100) /uL Sodium 130 L (137-145) mmol/L Potassium 4.8 (3.4-5.1) mmol/L Chloride 96 L (98-107) mmol/L Carbon Dioxide 21 L (22-32) mmol/L BUN 23 H (7-17) mg/dL Creatinine 0.73 (0.52-1.04) mg/dL Estimated GFR > 60 (>60) mL/min BUN/Creatinine Ratio 31.5 H (6-22) Glucose 450 H D (70-100) mg/dL Calcium 9.5 (8.4-10.2) mg/dL Total Bilirubin 0.3 (0.2-1.3) mg/dL AST 27 (14-36) IU/L ALT 33 (<35) IU/L Alkaline Phosphatase 117 (38-126) U/L Total Protein 7.4 (6.3-8.2) g/dL Albumin 4.1 (3.5-5.0) g/dL Globulin 3.3 (1.7-4.1) g/dL Albumin/Globulin Ratio 1.2 (1.0-2.8) Point of Care Testing Glucose POC 404 Point of care testing: Point of Care Testing Glucose POC 404 [facility] Narrative Medical decision making narrative: Patient is hyperglycemic but not in DKA. I suspect that this is most likely from the steroids that she received yesterday and also from the stress for the past couple days of being constipated than having diarrhea now having fairly significant back discomfort. She has a leukocytosis which is most likely from the steroids as well. She received fluids and also insulin here in the ER and her blood sugar did improve somewhat. Had a long discussion with her regarding this. There is no indication for antibiotics. Advised that she not take the steroids she was given a prescription for however she could take the lidocaine patches and also the methocarbamol. Will also discharged home with pain medication. She is afebrile. We discussed how she could continue to take insulin at home in order to get her blood sugars down she just needs to make sure that she is checking her blood sugar often to make sure that she does not become relatively hypoglycemic. She was given return precautions. She expressed understanding and agreement. Discharge Plan Departure Patient Disposition: Home Clinical Impression: Hyperglycemia Instructions: DI for Hyperglycemia -- Adult Activity Restrictions/Additional Instructions: Your blood sugar was elevated this evening and I have a high suspicion that this was related to the steroids that you were given during her last ED visit. I recommend that you do not take the steroids that were prescribed to you however the other medications (methocarbamol and lidocaine patches) would be appropriate. Use the pain medication as needed as well. I do recommend that you continue to take your blood sugars at home on a regular basis. You can give yourself repeat doses of insulin like we discussed however you do need to make sure that you were not dropping her blood sugar too low. Return to the emergency department for new symptoms. Prescriptions: No Action methocarbamol 500 mg tablet 500 mg PO TID Qty: 30 0RF methylprednisolone [Medrol (Durga)] 4 mg tablets,dose pack See Rx Instructions .ROUTE .COMPLEX Qty: 21 0RF Rx Instructions: orally per package directions lidocaine 4 % adhesive patch,medicated 1 patch topical DAILY PRN (Reason: pain) Qty: 10 0RF gemfibrozil 600 mg tablet 600 mg PO BID Qty: 30 3RF lisinopril 40 mg tablet 40 mg PO DAILY Qty: 30 3RF Referrals: Lilliana Gallagher DO [Primary Care Provider] - Stand Alone Forms: Patient Portal/API
[2022-10-19 01:09] LABS: Alanine Aminotransferase 33 IU/L (<35)
[2022-10-19] MEDS: HYDROCODONE/ACET 5/325 PREPACK 1 BOTTLE MISC (01:58)
== END 2022-10-19 02:08 | disposition home or self-care (01) ==
PROVIDERS: Emergency Provider Emergency Medicine; PCP Family Medicine
DX: E11.65 Type 2 diabetes mellitus with hyperglycemia (principal); M54.50 Low back pain, unspecified; S39.012A Strain of muscle, fascia and tendon of lower back, initial encounter; X58.XXXA Exposure to other specified factors, initial encounter; Y93.9 Activity, unspecified
CPT/HCPCS: 36415; 80053; 82962; 85025; 96372; 99283; 99284; J1100; J1885

== ENCOUNTER 2022-10-27 10:39 | Emergency (ER) | payer OTHER, MEDICAID, SELFPAY ==
[2022-10-27 10:56] VITALS: BP 135/74; PULSE 106; RESP 16; TEMP 36.8; O2SAT 98; BMI 43.0
--- NOTE | 2022-10-27 11:08 | DI.RAD.S_ITS ---
PROCEDURE: XR ABDOMEN MIN 2V INDICATIONS: Abdominal pain, please evaluate for obstruction TECHNIQUE: 2 views of the abdomen were acquired. COMPARISON: [facility], CT, CT ABDOMEN PELVIS WO CON, 10/15/2022, 22:22. [facility], CR, XR ABDOMEN 1V, 10/15/2022, 19:17. FINDINGS: Surgical changes and devices: Cholecystectomy clips are seen. Bowel: No pneumoperitoneum. The bowel gas pattern is normal. There is a moderate amount of stool seen within the colon. Soft tissues: No masses; visualized solid organ contours appear normal in size. No suspicious abdominal calcifications. Bones: No suspicious bony abnormalities. IMPRESSION: No dilated loops of small bowel are seen to suggest small bowel obstruction. There is a moderate amount of stool seen within the colon. Please correlate with an underlying history of constipation. Dictated by: Yassine Pappas M.D. on 10/27/2022 at 10:48 Approved by: Yassine Pappas M.D. on 10/27/2022 at 10:49
--- NOTE | 2022-10-27 11:11 | ED_ITS ---
HPI - Abdominal Pain <Tatiana Kennedy EVENT REPRESENTATIVE - Last Filed: 10/27/22 14:59> General Chief Complaint: Abdominal Pain Stated Complaint: haven't used restroom in 4 days, vomiting Time Seen by Provider: 10/27/22 10:56 Source: patient Mode of arrival: Ambulatory History of Present Illness HPI narrative: This is a 47-year-old female with history of diabetes, gastroparesis, and constipation who emergency department complaining of epigastric pressure, belching, dry heaving, and constipation for the last 4 days. She states she took some Zofran due to her nausea and she has not been able to have a bowel movement for the last 4 days. She states that she is out of her famotidine interim omeprazole for her GERD and needs a refill of this also. She has follow-up scheduled with Dr. Christiansen her primary care provider whom she is not seen yet in December of 2022. She is awaiting this appointment, denies urinary frequency urgency, dysuria, back pain, fever, chills, she endorses nausea, some dry heaving but no vomiting and no bowel movement for 4 days. Related Data Previous Rx's Medication Instructions Recorded gemfibrozil 600 mg tablet 600 mg PO BID #30 tabs 09/26/22 lisinopril 40 mg tablet 40 mg PO DAILY #30 tabs 09/26/22 lidocaine 4 % topical patch 1 patch topical DAILY PRN pain #10 10/18/22 ea methocarbamol 500 mg tablet 500 mg PO TID #30 tabs 10/18/22 methylprednisolone 4 mg tablets in See Rx Instructions PO .COMPLEX 10/18/22 a dose pack (Medrol (Durga)) #21 ea famotidine 40 mg tablet 40 mg PO DAILY #30 tabs 10/27/22 omeprazole 40 mg capsule,delayed 40 mg PO DAILY #30 caps 10/27/22 release polyethylene glycol 3350 17 17 g PO DAILY #510 grams 10/27/22 gram/dose oral powder (Miralax) Allergies Allergy/AdvReac Type Severity Reaction Status Date / Time topiramate [From TOPAMAX] Allergy Unknown Verified 10/27/22 10:30 bupropion [From Wellbutrin] Allergy Verified 10/27/22 10:30 cephalexin [From Keflex] Allergy Verified 10/27/22 10:30 Iodinated Contrast Media Allergy Verified 10/27/22 10:30 sulfamethoxazole Allergy Verified 10/27/22 10:30 [From Bactrim] trimethoprim [From Bactrim] Allergy Verified 10/27/22 10:30 Review of Systems <ALESSANDRA Covarrubias - Last Filed: 10/27/22 14:59> Review of Systems ROS Unobtainable: All systems reviewed & are unremarkable except as noted in HPI and below Patient History <ALESSANDRA Covarrubias - Last Filed: 10/27/22 14:59> Surgical History History of tonsillectomy Status post delivery Status post delivery Status post delivery Status post cholecystectomy Status post tubal ligation Family History Father Heart disease Hypertension Heart attack Mother Mental health problem Hypertension Social History Smoking Status: Former smoker Smoking Status: Former smoker tobacco type: cigarettes alcohol intake frequency: other Substance Use Type: former substance user Exam <ALESSANDRA Covarrubias - Last Filed: 10/27/22 14:59> Narrative Exam Narrative: Reviewed vitals signs and nursing notes. General: Pleasant, sitting upright, in no acute distress, well groomed, afebrile HEENT: symmetrical facial expressions, moist mucous membranes, neck is supple CV: regular rate and rhythm, warm extremities Respiratory: normal work of breathing, without tachypnea or hypoxia. GI: abdomen soft, nondistended, without CVA tenderness bilaterally. Bowel tones present, no tenderness, complains of epigastric pain and fullness MSK: moves all extremities, no weakness, normal tone, ambulatory without deficit Skin: brisk capillary refill, without rash or wound Neuro: clear speech and normal cognition, A&O x3 Initial Vital Signs Initial Vital Signs: Vital Signs Temperature 98.3 F 10/27/22 10:56 Pulse Rate 106 H 10/27/22 10:56 Respiratory Rate 16 10/27/22 10:56 Blood Pressure 135/74 10/27/22 10:56 Pulse Oximetry 98 10/27/22 10:56 Oxygen Delivery Method Room Air 10/27/22 10:56 <Mo Gifford DO - Last Filed: 10/28/22 09:22> Initial Vital Signs Initial Vital Signs: Vital Signs Temperature 98.3 F 10/27/22 10:56 Pulse Rate 106 H 10/27/22 10:56 Respiratory Rate 16 10/27/22 10:56 Blood Pressure 135/74 10/27/22 10:56 Pulse Oximetry 98 10/27/22 10:56 Oxygen Delivery Method Room Air 10/27/22 10:56 Course <ALESSANDRA Covarrubias - Last Filed: 10/27/22 14:59> Orders Ordered: Discontinued Medications Hydrocodone Bitart/Acetaminophen (Hydrocodone/Acet 5/325 Tablet) 1 tab PO NOW ONE Stop: 10/27/22 13:03 Last Admin: 10/27/22 13:15 Dose: 1 tab Documented By: YESENIA Al Hydrox/Mg Hydrox/Simethicone (Mag Hydrox/Alum/Simeth 30 Ml Udc) 30 ml PO NOW ONE Stop: 10/27/22 13:03 Last Admin: 10/27/22 13:20 Dose: Not Given Documented By: YESENIA Bisacodyl (Bisacodyl 10 Mg Supp) 10 mg DC NOW ONE Stop: 10/27/22 11:47 Last Admin: 10/27/22 12:11 Dose: 10 mg Documented By: YESENIA Famotidine (Famotidine 20 Mg Tablet) 40 mg PO BID SHIRIN Last Admin: 10/27/22 12:11 Dose: 40 mg Documented By: YESENIA Ondansetron HCl (Ondansetron 4 Mg Odt) 4 mg SL NOW ONE Stop: 10/27/22 13:05 Last Admin: 10/27/22 13:12 Dose: 4 mg Documented By: YESENIA Pantoprazole Sodium (Pantoprazole Dr 20 Mg Tablet) 40 mg PO NOW ONE Stop: 10/27/22 11:46 Last Admin: 10/27/22 12:10 Dose: 40 mg Documented By: YESENIA Polyethylene Glycol (Polyethylene Glycol 3350 17 Gm Powd.Pack) 17 gm PO NOW ONE Stop: 10/27/22 11:47 Last Admin: 10/27/22 12:12 Dose: 17 gm Documented By: YESENIA Vital Signs Vital signs: Vital Signs - 8 hr 10/27/22 10:56 10/27/22 13:23 Temperature 98.3 F Pulse Rate 106 H 88 Respiratory Rate 16 18 Blood Pressure 135/74 118/71 Pulse Oximetry 98 100 Oxygen Delivery Method Room Air Room Air <Mo Gifford DO - Last Filed: 10/28/22 09:22> Orders Ordered: Discontinued Medications Hydrocodone Bitart/Acetaminophen (Hydrocodone/Acet 5/325 Tablet) 1 tab PO NOW ONE Stop: 10/27/22 13:03 Last Admin: 10/27/22 13:15 Dose: 1 tab Documented By: YESENIA Al Hydrox/Mg Hydrox/Simethicone (Mag Hydrox/Alum/Simeth 30 Ml Udc) 30 ml PO NOW ONE Stop: 10/27/22 13:03 Last Admin: 10/27/22 13:20 Dose: Not Given Documented By: YESENIA Bisacodyl (Bisacodyl 10 Mg Supp) 10 mg DC NOW ONE Stop: 10/27/22 11:47 Last Admin: 10/27/22 12:11 Dose: 10 mg Documented By: YESENIA Famotidine (Famotidine 20 Mg Tablet) 40 mg PO BID SHIRIN Last Admin: 10/27/22 12:11 Dose: 40 mg Documented By: YESENIA Ondansetron HCl (Ondansetron 4 Mg Odt) 4 mg SL NOW ONE Stop: 10/27/22 13:05 Last Admin: 10/27/22 13:12 Dose: 4 mg Documented By: YESENIA Pantoprazole Sodium (Pantoprazole Dr 20 Mg Tablet) 40 mg PO NOW ONE Stop: 10/27/22 11:46 Last Admin: 10/27/22 12:10 Dose: 40 mg Documented By: YESENIA Polyethylene Glycol (Polyethylene Glycol 3350 17 Gm Powd.Pack) 17 gm PO NOW ONE Stop: 10/27/22 11:47 Last Admin: 10/27/22 12:12 Dose: 17 gm Documented By: YESENIA Vital Signs Vital signs: Vital Signs - 8 hr 10/27/22 10:56 10/27/22 13:23 Temperature 98.3 F Pulse Rate 106 H 88 Respiratory Rate 16 18 Blood Pressure 135/74 118/71 Pulse Oximetry 98 100 Oxygen Delivery Method Room Air Room Air MDM - Abdominal Pain <ALESSANDRA Covarrubias - Last Filed: 10/27/22 14:59> Lab Data 10/27/22 11:45 10/27/22 11:45 Labs: Lab Results 10/27/22 10/27/22 10/27/22 Range/Units 11:14 11:45 11:45 WBC 8.1 (4.5-11.0) X10^3/uL RBC 4.70 (4.0-5.2) X10^6/uL Hgb 13.0 (12.0-16.0) g/dL Hct 38.5 (36-46) % MCV 81.9 (80-100) fL MCH 27.7 (26-34) PG MCHC 33.8 (30-36) % RDW 13.9 (11.6-14.8) % Plt Count 318 (150-400) X10^3/uL Neut % (Auto) 60.5 (50-75) % Lymph % (Auto) 27.1 (25-40) % [place] % (Auto) 10.0 (3-14) % Eos % (Auto) 1.7 L (2-4) % Baso % (Auto) 0.7 (0-2) % Neut # (Auto) 4900 (4083-0100) /uL Lymph # (Auto) 2200 (1069-4849) /uL [place] # (Auto) 800 (0-900) /uL Eos # (Auto) 100 (0-450) /uL Baso # (Auto) 100 (0-100) /uL Sodium 136 L (137-145) mmol/L Potassium 4.6 (3.4-5.1) mmol/L Chloride 97 L (98-107) mmol/L Carbon Dioxide 27 (22-32) mmol/L BUN 31 H (7-17) mg/dL Creatinine 0.89 (0.52-1.04) mg/dL Estimated GFR > 60 (>60) mL/min BUN/Creatinine Ratio 34.8 H (6-22) Glucose 133 H D (70-100) mg/dL Calcium 10.1 (8.4-10.2) mg/dL Total Bilirubin 0.4 (0.2-1.3) mg/dL AST 24 (14-36) IU/L ALT 22 (<35) IU/L Alkaline Phosphatase 104 (38-126) U/L Total Protein 8.4 H (6.3-8.2) g/dL Albumin 4.8 (3.5-5.0) g/dL Globulin 3.6 (1.7-4.1) g/dL Albumin/Globulin Ratio 1.3 (1.0-2.8) Lipase 82 (23-300) U/L Urine RBC None seen (0-5/HPF) Urine WBC 0-1/hpf (0-5/HPF) Ur Squamous Epith Cells 1-5 /hpf (0-5/HPF) Urine Bacteria Few (2-10) H (None) Ur Culture Indicated? Cult not indicated Point of care testing: Urine Dip Bedside Urine Glucose Negative Bedside Urine Bilirubin - Negative Bedside Urine Ketone - Negative Urine Specific [place] 1.015 Bedside Urine Occult Blood - Negative Bedside Urine pH 5.5 Bedside Urine Protein - Negative Bedside Urine Urobilinogen - Negative Bedside Urine Nitrite - Negative Bedside Urine Leukocytes - Negative Esterase Imaging Data Abdominal x-ray: Radiologist's Impression: [address] [address] XRay Report Signed Patient: Jamila Foster MR#: [id number] : 1975 Acct:[id number] Age/Sex: 47 / F Date of Service: 10/27/22 Loc: ED Accession Number: [id number] ?? Procedure: XR abdomen min 2V Ordering Provider: Tatiana Kennedy PROCEDURE:? XR ABDOMEN MIN 2V ? INDICATIONS:? Abdominal pain, please evaluate for obstruction ? TECHNIQUE:? 2 views of the abdomen were acquired.? ? COMPARISON:? [facility], CT, CT ABDOMEN PELVIS WO CON, 10/15/2022, 22:22.? [facility], CR, XR ABDOMEN 1V, 10/15/2022, 19:17. ? FINDINGS:? Surgical changes and devices:? Cholecystectomy clips are seen.? ? Bowel:? No pneumoperitoneum.? The bowel gas pattern is normal.? There is a moderate amount of stool seen within the colon. ? Soft tissues:? No masses; visualized solid organ contours appear normal in size.? No suspicious abdominal calcifications.? ? Bones:? No suspicious bony abnormalities.? IMPRESSION:? No dilated loops of small bowel are seen to suggest small bowel obstruction. ? There is a moderate amount of stool seen within the colon. Please correlate with an underlying history of constipation.? ? ? Dictated by: Yassine Pappas M.D. on 10/27/2022 at 10:48 ? ? Approved by: Yassine Pappas M.D. on 10/27/2022 at 10:49 MDM Narrative Medical decision making narrative: Chief Complaint: Epigastric pain, abdominal fullness, no bowel movement Multiple etiologies for patient's complaint considered including, but not li mited to: Gastroparesis, bowel obstruction, urinary tract infection, volvulus, constipation, gastric ulcer, duodenal ulcer, gastritis, GERD I have independently reviewed the patient's vital signs and nursing notes as well as prior records if available. Plan: Abdominal series x-ray, basic lab work including lipase, UA Patient reports that she is out of her famotidine and her omeprazole and is aw aiting her primary care appointment with Dr. Gallagher in December. She complains primarily of epigastric pain, dyspepsia, dry heaving and nausea. She would like a refill of these medications today. Denies urinary frequency or urgency but wanted to evaluate her urine for infection. There is few bacteria without pyuria or RBCs. She does not have abdominal tenderness other than mild tenderness to epigastrium. Course of Care: Treated with Protonix 40 mg p.o. and famotidine 40 mg. Prior to discharge, patient complained of abdominal pain, her UA was negative for infection, her lab work overall was grossly unremarkable, she is given an hydrocodone for pain currently, Zofran, MiraLax and a bisacodyl suppository. She states that she feels like she will be able to have a bowel movement within the next hour. She was ready for discharge and given strict return precautions for worsening of her symptoms come back to hospital. Social considerations that may affect disposition: none Questions are addressed and there is agreement with the plan and for follow-up. I consulted with the ED attending physician Dr. Gifford as needed for higher level of care considerations and they were available for discussion and recommendations regarding plan of care and diagnostic testing. Patient is appropriate for outpatient management. <Mo Gifford, DO - Last Filed: 10/28/22 09:22> Lab Data Labs: Lab Results 10/27/22 10/27/22 10/27/22 Range/Units 11:14 11:45 11:45 WBC 8.1 (4.5-11.0) X10^3/uL RBC 4.70 (4.0-5.2) X10^6/uL Hgb 13.0 (12.0-16.0) g/dL Hct 38.5 (36-46) % MCV 81.9 (80-100) fL MCH 27.7 (26-34) PG MCHC 33.8 (30-36) % RDW 13.9 (11.6-14.8) % Plt Count 318 (150-400) X10^3/uL Neut % (Auto) 60.5 (50-75) % Lymph % (Auto) 27.1 (25-40) % [place] % (Auto) 10.0 (3-14) % Eos % (Auto) 1.7 L (2-4) % Baso % (Auto) 0.7 (0-2) % Neut # (Auto) 4900 (6885-4610) /uL Lymph # (Auto) 2200 (7946-3743) /uL [place] # (Auto) 800 (0-900) /uL Eos # (Auto) 100 (0-450) /uL Baso # (Auto) 100 (0-100) /uL Sodium 136 L (137-145) mmol/L Potassium 4.6 (3.4-5.1) mmol/L Chloride 97 L (98-107) mmol/L Carbon Dioxide 27 (22-32) mmol/L BUN 31 H (7-17) mg/dL Creatinine 0.89 (0.52-1.04) mg/dL Estimated GFR > 60 (>60) mL/min BUN/Creatinine Ratio 34.8 H (6-22) Glucose 133 H D (70-100) mg/dL Calcium 10.1 (8.4-10.2) mg/dL Total Bilirubin 0.4 (0.2-1.3) mg/dL AST 24 (14-36) IU/L ALT 22 (<35) IU/L Alkaline Phosphatase 104 (38-126) U/L Total Protein 8.4 H (6.3-8.2) g/dL Albumin 4.8 (3.5-5.0) g/dL Globulin 3.6 (1.7-4.1) g/dL Albumin/Globulin Ratio 1.3 (1.0-2.8) Lipase 82 (23-300) U/L Urine RBC None seen (0-5/HPF) Urine WBC 0-1/hpf (0-5/HPF) Ur Squamous Epith Cells 1-5 /hpf (0-5/HPF) Urine Bacteria Few (2-10) H (None) Ur Culture Indicated? Cult not indicated Point of care testing: Urine Dip Bedside Urine Glucose Negative Bedside Urine Bilirubin - Negative Bedside Urine Ketone - Negative Urine Specific [place] 1.015 Bedside Urine Occult Blood - Negative Bedside Urine pH 5.5 Bedside Urine Protein - Negative Bedside Urine Urobilinogen - Negative Bedside Urine Nitrite - Negative Bedside Urine Leukocytes - Negative Esterase Discharge Plan Departure Patient Disposition: Home Clinical Impression: Acute epigastric pain, Hx of diabetic gastroparesis, History of gastroesophageal reflux (GERD), Dyspepsia Constipation Qualifiers: Constipation type: unspecified constipation type Qualified Code(s): K59.00 - Constipation, unspecified Instructions: DI for Gastroesophageal Reflux Disease (GERD), DI for Gastroparesis, GERD Diet Activity Restrictions/Additional Instructions: *You have been diagnosed with symptoms from your heartburn and constipation. Please take MiraLax daily and stop if you have diarrhea. Take your omeprazole and famotidine daily on an empty stomach. Drink plenty of water. Follow-up with your new primary care provider, he received a copy of this message and come back to the hospital if you develop a fever have worsening symptoms. I hope you feel better soon, it was nice to meet you. *What to do: *Please continue to take your regular medications as directed. [ x] New medication prescriptions sent to your pharmacy: [[facility] ] [ ] New medication written as a paper prescription [ ] No new medications given Please call and schedule follow up with your primary care provider in 2-3 days, at least for an update. Let them know you were seen in the Emergency Department for the above problem. We will electronically transmit a record of today's note if your PCP or specialist is in our system. *If you do not have a primary care provider please contact [phone] to establish care with one of the [facility] primary care providers. *Return to the Emergency Department for worsening symptoms, inability to keep liquids down, fever greater than 101F, chills, or other concerning symptom. Prescriptions: New polyethylene glycol 3350 [Miralax] 17 gram/dose powder 17 g PO DAILY Qty: 510 1RF famotidine 40 mg tablet 40 mg PO DAILY Qty: 30 3RF omeprazole 40 mg capsule,delayed release(DR/EC) 40 mg PO DAILY Qty: 30 3RF No Action methocarbamol 500 mg tablet 500 mg PO TID Qty: 30 0RF methylprednisolone [Medrol (Durga)] 4 mg tablets,dose pack See Rx Instructions .ROUTE .COMPLEX Qty: 21 0RF Rx Instructions: orally per package directions lidocaine 4 % adhesive patch,medicated 1 patch topical DAILY PRN (Reason: pain) Qty: 10 0RF gemfibrozil 600 mg tablet 600 mg PO BID Qty: 30 3RF lisinopril 40 mg tablet 40 mg PO DAILY Qty: 30 3RF Referrals: Lilliana Gallagher DO [Primary Care Provider] - Stand Alone Forms: Patient Portal/API <Mo Gifford DO - Last Filed: 10/28/22 09:22> Cosign ED Attending Martinaature Attestation: I was immediately available in the department for consultation. Documentation has been reviewed. I agree with assessment and plan.
[2022-10-27 11:49] LABS: Add Manual Diff / Slide Review NO; Basophils Absolute Auto 100 /uL (0-100); Basophils Percent Auto 0.7 % (0-2); Eosinophils Absolute Auto 100 /uL (0-450); Eosinophils Percent Auto 1.7 % (2-4); Hematocrit 38.5 % (36-46); Lymphocytes Absolute Auto 2200 /uL (1100-4500); Lymphocytes Percent Auto 27.1 % (25-40); Mean Corpuscular HGB Conc 33.8 % (30-36); Mean Corpuscular Hemoglobin 27.7 PG (26-34); Mean Corpuscular Volume 81.9 fL (80-100); Monocytes Absolute Auto 800 /uL (0-900); Neutrophils Absolute Auto 4900 /uL (1500-7000); Neutrophils Percent Auto 60.5 % (50-75); Platelet Count 318 X10^3/uL (150-400); Red Cell Distribution Width 13.9 % (11.6-14.8); White Blood Cell Count 8.1 X10^3/uL (4.5-11.0)
[2022-10-27 11:51] LABS: Bacteria Urine Few (2-10); Culture Indicated Urine Cult Not Indicated; RBC Urine None Seen (0-5/HPF); Squamous Epithelial Cell Urine 1-5 /HPF (0-5/HPF); WBC Urine 0-1/HPF (0-5/HPF)
[2022-10-27 12:02] LABS: Alanine Aminotransferase 22 IU/L (<35); Albumin 4.8 g/dL (3.5-5.0); Albumin Globulin Ratio 1.3 (1.0-2.8); Alkaline Phosphatase 104 U/L (38-126); Aspartate Aminotransferase 24 IU/L (14-36); BUN Creatinine Ratio 34.8 (6-22); Bilirubin Total 0.4 mg/dL (0.2-1.3); Blood Urea Nitrogen 31 mg/dL (7-17); Calcium 10.1 mg/dL (8.4-10.2); Carbon Dioxide 27 mmol/L (22-32); Chloride 97 mmol/L (98-107); Estimated Glomerular Filt Rate > 60 mL/min (>60); Globulin 3.6 g/dL (1.7-4.1); Glucose 133 mg/dL (70-100); HEMOLYSIS < 15 (0-50); Lipase 82 U/L (23-300); Potassium 4.6 mmol/L (3.4-5.1); Sodium 136 mmol/L (137-145); Total Protein 8.4 g/dL (6.3-8.2)
[2022-10-27] MEDS: PANTOPRAZOLE DR 20 MG TABLET 40 MG PO (12:10)
[2022-10-27] MEDS: FAMOTIDINE 20 MG TABLET 40 MG PO (12:11)
[2022-10-27] MEDS: BISACODYL 10 MG SUPP PR (12:11)
[2022-10-27] MEDS: polyethylene glycoL 3350 17 GM POWD.PACK PO (12:12)
[2022-10-27] MEDS: ONDANSETRON 4 MG ODT SL (13:12)
[2022-10-27] MEDS: HYDROCODONE/ACET 5/325 TABLET 1 TAB PO (13:15)
[2022-10-27 13:23] VITALS: BP 118/71; PULSE 88; RESP 18; O2SAT 100
== END 2022-10-27 13:34 | disposition home or self-care (01) ==
PROVIDERS: Emergency Provider Nurse Practitioner Critical Care Medicine; PCP Family Medicine
DX: K59.00 Constipation, unspecified (principal); R10.13 Epigastric pain
CPT/HCPCS: 74019; 80053; 81003; 81015; 83690; 85025; 99283; 99284; A9270

== ENCOUNTER → 2022-11-13 06:41 | Outpatient (CLI) | payer OTHER, MEDICAID, SELFPAY ==
[2022-11-13 10:14] LABS: Hemoglobin A1C% w Est Avg Glu 9.5 % (4.0-6.0)
[2022-11-13 10:28] LABS: Cholesterol 168 mg/dL (140-199); HDL Cholesterol 32 mg/dL (40-60); LDL Cholesterol Calculated 74 mg/dL (<100); Triglycerides 311 mg/dL (35-150)
[2022-11-13 10:58] LABS: Creatinine Urine Random 117.6 mg/dL
[2022-11-13 11:03] LABS: Microalbumi Creatinin Ratio Ur 6.8 ug/mg CR (<30); Microalbumin Urine Random 0.8 mg/dL (0-1.6)
[2022-11-13 11:05] LABS: TSH w/ Reflex to FT4 0.66 uIU/mL (0.47-4.68)
== END ==
PROVIDERS: PCP Family Medicine; Referring Provider Family Medicine; Visit Provider Family Medicine
DX: E11.9 Type 2 diabetes mellitus without complications (principal); Z79.4 Long term (current) use of insulin; K59.00 Constipation, unspecified
CPT/HCPCS: 36415; 80061; 82043; 82570; 83036; 84443

== ENCOUNTER → 2023-01-15 14:12 | Outpatient (CLI) | payer OTHER, MEDICAID, SELFPAY ==
--- NOTE | 2023-01-15 | DI.RAD.S_ITS ---
PROCEDURE: XR LUMBAR SPINE MIN 4V INDICATIONS: chronic and bilateral low back pain TECHNIQUE: 5 views of the lumbar spine acquired, including flexion and extension views. COMPARISON: [facility], , L-SPINE 2-3 VIEWS, 05/12/2015, 10:31. FINDINGS: Bones: 5 nonrib-bearing vertebrae are present. There is normal bony alignment. No vertebral body compression fractures. No suspicious bony lesions. Mild lower lumbar facet arthropathy. Soft tissues: Overlying bowel gas pattern is normal. No suspicious soft tissue calcifications. Flexion/extension: There is normal range of motion, with preserved normal alignment. IMPRESSION: Mild lower lumbar facet arthropathy. Otherwise unremarkable study. Unremarkable flexion and extension films. Dictated by: Ronny Young M.D. on 01/15/2023 at 15:59 Approved by: Ronny Young M.D. on 01/15/2023 at 16:00
== END ==
PROVIDERS: PCP Family Medicine; Referring Provider Family Medicine; Visit Provider Family Medicine
DX: M47.816 Spondylosis without myelopathy or radiculopathy, lumbar region (principal); M54.50 Low back pain, unspecified; G89.29 Other chronic pain
CPT/HCPCS: 72110

== ENCOUNTER → 2023-02-01 10:39 | Outpatient (CLI) | payer OTHER, MEDICAID, SELFPAY ==
[2023-02-01 12:30] LABS: Add Manual Diff / Slide Review NO; Basophils Absolute Auto 0 /uL (0-100); Basophils Percent Auto 0.6 % (0-2); Eosinophils Absolute Auto 200 /uL (0-450); Eosinophils Percent Auto 2.1 % (2-4); Hematocrit 35.5 % (36-46); Hemoglobin 12.4 g/dL (12.0-16.0); Lymphocytes Absolute Auto 1800 /uL (1100-4500); Lymphocytes Percent Auto 23.6 % (25-40); Mean Corpuscular HGB Conc 34.8 % (30-36); Mean Corpuscular Hemoglobin 28.5 PG (26-34); Mean Corpuscular Volume 81.8 fL (80-100); Monocytes Absolute Auto 600 /uL (0-900); Monocytes Percent Auto 7.7 % (3-14); Neutrophils Absolute Auto 4900 /uL (1500-7000); Platelet Count 294 X10^3/uL (150-400); Red Blood Cell Count 4.34 X10^6/uL (4.0-5.2); Red Cell Distribution Width 14.1 % (11.6-14.8); White Blood Cell Count 7.4 X10^3/uL (4.5-11.0)
[2023-02-01 15:15] LABS: Alanine Aminotransferase 25 IU/L (<35); Albumin 4.1 g/dL (3.5-5.0); Albumin Globulin Ratio 1.5 (1.0-2.8); Alkaline Phosphatase 84 U/L (38-126); Aspartate Aminotransferase 25 IU/L (14-36); Bilirubin Total 0.4 mg/dL (0.2-1.3); Blood Urea Nitrogen 8 mg/dL (7-17); Calcium 9.7 mg/dL (8.4-10.2); Carbon Dioxide 26 mmol/L (22-32); Chloride 97 mmol/L (98-107); Cholesterol 207 mg/dL (140-199); Estimated Glomerular Filt Rate > 60 mL/min (>60); Globulin 2.7 g/dL (1.7-4.1); Glucose 112 mg/dL (70-100); HDL Cholesterol 39 mg/dL (40-60); HEMOLYSIS < 15 (0-50); LDL Cholesterol Calculated 120 mg/dL (<100); Potassium 4.2 mmol/L (3.4-5.1); Sodium 135 mmol/L (137-145); Total Protein 6.8 g/dL (6.3-8.2); Triglycerides 239 mg/dL (35-150)
[2023-02-04 10:44] LABS: HCV AB Non Reactive (Non Reactive)
== END ==
PROVIDERS: PCP Family Medicine; Referring Provider Family Medicine; Visit Provider Family Medicine
DX: Z11.59 Encounter for screening for other viral diseases (principal); E11.42 Type 2 diabetes mellitus with diabetic polyneuropathy; Z79.4 Long term (current) use of insulin; R20.2 Paresthesia of skin; M65.332 Trigger finger, left middle finger; M65.331 Trigger finger, right middle finger; Z01.818 Encounter for other preprocedural examination
CPT/HCPCS: 36415; 80053; 80061; 85025; 86803

== ENCOUNTER 2023-03-02 17:12 | Emergency (ER) | payer OTHER, MEDICAID, SELFPAY ==
[2023-03-02 17:30] VITALS: BP 183/78; PULSE 85; RESP 16; TEMP 37.1; O2SAT 100; BMI 42.3
--- NOTE | 2023-03-02 18:27 | ED.EXTPRO ---
HPI - Extremity Problem <Dorian España PA-C - Last Filed: 03/02/23 18:34> General Chief complaint: Extremity Problem,Nontraumatic Stated complaint: Post op infection left palm Time Seen by Provider: 03/02/23 17:47 Source: patient Mode of arrival: Ambulatory History of Present Illness HPI Narrative: This is a 47-year-old female presents emergency department for wound check after carpal tunnel surgery about 2 weeks ago. She was seen by a surgeon as scheduled Orthopedics but Mr. Follow up appointment. She was concerned with a faint area of redness around the more proximal over the incisions. She denies any fevers states it is slightly more painful. Denies any purulent discharge. Related Data Home Medications Medication Instructions Recorded Confirmed atorvastatin 40 mg tablet 40 mg PO DAILY 11/08/22 12/24/22 insulin glargine 100 unit/mL (3 40 unit SUBCUT QAM 11/08/22 12/24/22 mL) subcutaneous pen (Basaglar KwikPen U-100 Insulin) insulin lispro 100 unit/mL 1 sliding scale dose SUBCUT 11/08/22 12/24/22 subcutaneous solution (Admelog USEASDIRECTD U-100 Insulin lispro) hydroxyzine HCl 50 mg tablet 50 mg PO BID 11/22/22 12/24/22 oxcarbazepine 300 mg tablet 300 mg PO BID 11/22/22 12/24/22 alprazolam 1 mg tablet 1 mg PO BID PRN 12/07/22 12/24/22 Previous Rx's Medication Instructions Recorded famotidine 40 mg tablet 40 mg PO DAILY #30 tabs 10/27/22 omeprazole 40 mg capsule,delayed 40 mg PO DAILY #30 caps 10/27/22 release polyethylene glycol 3350 17 17 g PO DAILY #510 grams 10/27/22 gram/dose oral powder (Miralax) aripiprazole 15 mg tablet (Abilify) 15 mg PO DAILY #30 tabs 11/15/22 metformin 500 mg tablet 1,000 mg (2 x 500 mg) PO BID #360 11/15/22 tabs pen needle, diabetic 32 gauge x #1,200 ea 11/20/22 (Aqinject Pen Needle) furosemide 20 mg tablet (Lasix) 20 mg PO DAILY PRN edema, wt gain 11/22/22 #30 tabs lisinopril 40 mg tablet 40 mg PO DAILY #90 tabs 11/22/22 potassium chloride 10 mEq 10 meq PO DAILY PRN for edema #90 11/22/22 capsule,extended release caps glipizide 2.5 mg tablet, extended 2.5 mg PO DAILY diabetes #90 tabs 12/07/22 release 24 hr meloxicam 15 mg tablet 15 mg PO DAILY PRN pain #30 tabs 12/07/22 methocarbamol 500 mg tablet 500 mg PO TID #30 tabs 12/07/22 trazodone 100 mg tablet 100 mg PO DAILY #90 tabs 12/07/22 valacyclovir 500 mg tablet 500 mg PO DAILY #90 tabs 12/07/22 dexacom 6 sensors three pack #1 ea 12/27/22 dexacom 6 transmiter #1 ea 12/27/22 blood-glucose meter,continuous #1 ea 12/28/22 (Dexcom G6 Medical Assisting Instructor) blood-glucose transmitter (Dexcom #1 ea 12/28/22 G6 Transmitter device) lancets 28 gauge (FreeStyle #100 ea 01/25/23 Lancets) blood-glucose sensor (Dexcom G6 #3 ea 02/04/23 Sensor device) doxycycline hyclate 100 mg capsule 100 mg PO BID #14 caps 03/02/23 Allergies Allergy/AdvReac Type Severity Reaction Status Date / Time topiramate [From TOPAMAX] Allergy Unknown Verified 03/02/23 17:37 bupropion [From Wellbutrin] Allergy Verified 03/02/23 17:37 cephalexin [From Keflex] Allergy Verified 03/02/23 17:37 Iodinated Contrast Media Allergy Verified 03/02/23 17:37 sulfamethoxazole Allergy Verified 03/02/23 17:37 [From Bactrim] trimethoprim [From Bactrim] Allergy Verified 03/02/23 17:37 Review of Systems <Dorian España PA-C - Last Filed: 03/02/23 18:34> Review of Systems Narrative: GENERAL: Denies chills, fatigue, malaise, fever, sweats. HEENT: Denies sinus pain, ear pain, sore throat, difficulty swallowing, dizziness. RESPIRATORY: Denies dyspnea, cough, wheezing, hemoptysis, sputum. CARDIOVASCULAR: Denies chest pain, palpitations, orthopnea, edema, GASTROINTESTINAL: Denies nausea, vomiting, abdominal pain, diarrhea, constipation, melena. : Denies dysuria, frequency, incontinence, hematuria, urinary retention. MUSCULOSKELETAL: denies weakness, joint pain, or bony pain SKIN: Palm incisions from recent surgery NEUROLOGIC: Denies weakness, headache, numbness, change in speech, confusion, seizures, incoordination. PSYCHIATRIC: No concerning psychosocial issues. 12 point review of systems is negative except for those stated above Patient History <Dorian España PA-C - Last Filed: 03/02/23 18:34> Medical History (Updated 03/02/23 @ 18:33 by Dorian España PA-C) JUDIT (obstructive sleep apnea) CAD (coronary artery disease) Mixed hyperlipidemia Tobacco dependence Type 2 diabetes mellitus with hyperglycemia, with long-term current use of insulin Bipolar 2 disorder Morbid obesity Surgical History Status post cholecystectomy Status post tubal ligation History of tonsillectomy Status post delivery Status post delivery Status post delivery Family History Father Heart disease Hypertension Heart attack Mother Mental health problem Hypertension Social History Smoking Status: Former smoker Smoking Status: Former smoker tobacco type: cigarettes alcohol intake frequency: other Substance Use Type: former substance user Exam <Dorian España PA-C - Last Filed: 03/02/23 18:34> Narrative Exam Narrative: GENERAL: Well-developed patient, in mild distress. HEAD: Atraumatic. Normocephalic. EYES: Pupils equal round and reactive. Extraocular motions intact. No scleral icterus. No injection or drainage. ENT: Nose without bleeding, purulent drainage. Throat without erythema, tonsillar hypertrophy or exudate. Airway patent. NECK: Trachea midline. Non tender EXTREMITIES: No edema or joint tenderness. NEURO: AOx3. SKIN: 2 incisions to the palm of the left hand. Full range of motion of the distal fingers and wrist. Very faint area of erythema surrounding the proximal incision without any purulent drainage. Initial Vital Signs Initial Vital Signs: Vital Signs Temperature 98.7 F 03/02/23 17:30 Pulse Rate 85 03/02/23 17:30 Respiratory Rate 16 03/02/23 17:30 Blood Pressure 183/78 H 03/02/23 17:30 Pulse Oximetry 100 03/02/23 17:30 Oxygen Delivery Method Room Air 03/02/23 17:30 <Jseus Saavedra DO - Last Filed: 03/03/23 07:02> Initial Vital Signs Initial Vital Signs: Vital Signs Temperature 98.7 F 03/02/23 17:30 Pulse Rate 85 03/02/23 17:30 Respiratory Rate 16 03/02/23 17:30 Blood Pressure 183/78 H 03/02/23 17:30 Pulse Oximetry 100 03/02/23 17:30 Oxygen Delivery Method Room Air 03/02/23 17:30 Course <Dorian España PA-C - Last Filed: 03/02/23 18:34> Vital Signs Vital signs: Vital Signs - 8 hr 03/02/23 17:30 Temperature 98.7 F Pulse Rate 85 Respiratory Rate 16 Blood Pressure 183/78 H Pulse Oximetry 100 Oxygen Delivery Method Room Air <Jesus Saavedra DO - Last Filed: 03/03/23 07:02> Vital Signs Vital signs: Vital Signs - 8 hr 03/02/23 17:30 Temperature 98.7 F Pulse Rate 85 Respiratory Rate 16 Blood Pressure 183/78 H Pulse Oximetry 100 Oxygen Delivery Method Room Air MDM - Extremity (Nontraumatic) <Dorian España PA-C - Last Filed: 03/02/23 18:34> MDM Narrative Medical decision making narrative: ED course: This is a 47-year-old female presents emergency department with concerns of an infected incision from a recent carpal tunnel syndrome surgery. On exam there maybe a slight chance of infection as there is some erythema although this maybe normal postoperative skin changes. We will treat with doxycycline prophylactically as patient states she was allergic to both Keflex and Bactrim. Recommend she call her surgeon's office on Saturday to arrange for the earliest possible appointment for evaluation. No systemic symptoms. CC: Infected incision Complicating co-morbidities: None Data collected from: Previous notes Medical records reviewed: Patient has not been seen for this in the past. Differential considered, but not limited to: Infected incision, sepsis Exam documented above, pertinent findings include: Slight erythema around the proximal incision Lab Test results independently reviewed as above. Pertinent findings: None Imaging studies independently reviewed: None Scores Used: None MIPS Elements: None Consultations: None Treatments: None Re-evaluations: None Discussion: Discussed plan with the patient was comfortable with the plan Diagnosis: Wound check Disposition: see below, along with detailed discharge instructions that have been reviewed with patient as well as indications for ED re-evaluation and additional outpatient follow up Discharge Plan Departure Patient Disposition: Home Clinical Impression: Visit for wound check Activity Restrictions/Additional Instructions: Thank you for coming to the [facility] Emergency Department today. As we discussed your wound appears well overall but it maybe slightly infected. We will cover with oral antibiotics. Please call your surgeons office on Saturday to arrange for the earliest appointment for a sooner recheck in the that you have planned. Please take the oral antibiotics as prescribed. Please return to the emergency department if you develop any worsening spreading redness, purulent discharge drainage, fevers, or any other concerning signs or symptoms. I hope you feel better soon. Please follow up with your primary care provider within a week if your symptoms continue. If you do not have a primary care provider please contact the [facility] Resource line at [phone]. They will ask some questions about your medical history and help you get set up with a provider in the community. Prescriptions: New doxycycline hyclate 100 mg capsule 100 mg PO BID Qty: 14 0RF No Action aripiprazole [Abilify] 15 mg tablet 15 mg PO DAILY Qty: 30 11RF (DME) pen needle, diabetic [Aqinject Pen Needle] 32 gauge x 5/32 needle See Rx Instructions .Route Qty: 1200 3RF Rx Instructions: use to inject insulin 4-6 times a day as needed. potassium chloride 10 mEq capsule, extended release 10 meq PO DAILY PRN (Reason: for edema) Qty: 90 3RF lisinopril 40 mg tablet 40 mg PO DAILY Qty: 90 3RF (DME) dexacom 6 sensors three pack See Rx Instructions .Route .MEDSUPPLY Qty: 1 0RF Rx Instructions: As directed (DME) dexacom 6 transmiter See Rx Instructions .Route .MEDSUPPLY Qty: 1 0RF Rx Instructions: As directed (DME) Dexcom G6 Medical Assisting Instructor Misc See Rx Instructions .Route Qty: 1 2RF Rx Instructions: Use to continuously monitor blood sugars (DME) Dexcom G6 Transmitter Device See Rx Instructions .Route Qty: 1 2RF Rx Instructions: Use to continuously monitor blood sugars (DME) lancets [FreeStyle Lancets] 28 gauge misc See Rx Instructions .Route Qty: 100 11RF Rx Instructions: use to check blood glucose three times a day. (DME) Dexcom G6 Sensor Device See Rx Instructions .Route Qty: 3 4RF Rx Instructions: Use to continuously monitor blood sugars alprazolam 1 mg tablet 1 mg PO BID PRN trazodone 100 mg tablet 100 mg PO DAILY Qty: 90 3RF valacyclovir 500 mg tablet 500 mg PO DAILY Qty: 90 3RF methocarbamol 500 mg tablet 500 mg PO TID Qty: 30 2RF meloxicam 15 mg tablet 15 mg PO DAILY PRN (Reason: pain) Qty: 30 11RF Rx Instructions: with food glipizide 2.5 mg tablet extended release 24hr 2.5 mg PO DAILY Qty: 90 3RF Rx Instructions: stop pioglitizone insulin glargine [Basaglar KwikPen U-100 Insulin] 100 unit/mL (3 mL) insulin pen 40 unit SUBCUT QAM insulin lispro [Admelog U-100 Insulin lispro] 100 unit/mL solution 1 sliding scale dose SUBCUT USEASDIRECTD atorvastatin 40 mg tablet 40 mg PO DAILY metformin 500 mg tablet 1,000 mg PO BID Qty: 360 3RF furosemide [Lasix] 20 mg tablet 20 mg PO DAILY PRN (Reason: edema, wt gain) Qty: 30 11RF hydroxyzine HCl 50 mg tablet 50 mg PO BID oxcarbazepine 300 mg tablet 300 mg PO BID Rx Instructions: 300mg in the morning and 600mg at night polyethylene glycol 3350 [Miralax] 17 gram/dose powder 17 g PO DAILY Qty: 510 1RF famotidine 40 mg tablet 40 mg PO DAILY Qty: 30 3RF omeprazole 40 mg capsule,delayed release(DR/EC) 40 mg PO DAILY Qty: 30 3RF Referrals: Kevin Jaimes MD [Primary Care Provider] - Stand Alone Forms: Patient Portal/API ED Sign-out <Jesus Saavedra DO - Last Filed: 03/03/23 07:02> Cosign ED Attending Cosignature Attestation: Dr Saavedra Co-Sign Statement: I was available for consultation during this patient's emergency department visit. This chart is signed by myself for administrative purposes only. I did not have direct contact with this patient during this visit. They were seen independently by the APC.
--- NOTE | 2023-03-02 18:39 | PC.NURSE ---
This RN attempted to place an IV line per order but patient has extreme fear. This nurse tried to reassure patient with theraputic communication. Patient still unwilling to have IV inserted at this time. Provider informed. Patient went with pile driving technician for testing.
== END 2023-03-02 18:40 | disposition home or self-care (01) ==
PROVIDERS: Emergency Provider Physician Assistant Medical; Family Provider Family Medicine; PCP Family Medicine
DX: Z48.00 Encounter for change or removal of nonsurgical wound dressing (principal)
CPT/HCPCS: 99281; 99282

== ENCOUNTER 2023-03-19 08:12 | Emergency (ER) | payer OTHER, MEDICAID, SELFPAY ==
[2023-03-19 08:21] VITALS: BP 125/66; PULSE 85; RESP 20; TEMP 36.2; O2SAT 100; BMI 42.3
--- NOTE | 2023-03-19 09:20 | ED.RECABL ---
HPI - Recheck/Abnormal Lab/Rx General Chief Complaint: Recheck/Abnormal Lab/Rx Stated Complaint: out of xanax , yeast infection, Time Seen by Provider: 03/19/23 09:20 Source: patient Mode of arrival: Ambulatory History of Present Illness HPI narrative: Patient is a 47-year-old female who suffers from severe anxiety and agoraphobia. She reports that she was at a primary care earlier this month. She was diagnosed with a yeast infection but she never got prescribed any medication. She also is out of her Xanax. Apparently that provider is not available she is tried calling to have refills of her Xanax which she takes 1 mg twice a day and has for a long time. She did not yesterday. She needs some today she has not for extensive amount of time Related Data Home Medications Medication Instructions Recorded Confirmed atorvastatin 40 mg tablet 40 mg PO DAILY 11/08/22 12/24/22 insulin glargine 100 unit/mL (3 40 unit SUBCUT QAM 11/08/22 12/24/22 mL) subcutaneous pen (Basaglar KwikPen U-100 Insulin) insulin lispro 100 unit/mL 1 sliding scale dose SUBCUT 11/08/22 12/24/22 subcutaneous solution (Admelog USEASDIRECTD U-100 Insulin lispro) hydroxyzine HCl 50 mg tablet 50 mg PO BID 11/22/22 12/24/22 oxcarbazepine 300 mg tablet 300 mg PO BID 11/22/22 12/24/22 alprazolam 1 mg tablet 1 mg PO BID PRN 12/07/22 12/24/22 Previous Rx's Medication Instructions Recorded famotidine 40 mg tablet 40 mg PO DAILY #30 tabs 10/27/22 polyethylene glycol 3350 17 17 g PO DAILY #510 grams 10/27/22 gram/dose oral powder (Miralax) aripiprazole 15 mg tablet (Abilify) 15 mg PO DAILY #30 tabs 11/15/22 metformin 500 mg tablet 1,000 mg (2 x 500 mg) PO BID #360 11/15/22 tabs pen needle, diabetic 32 gauge x #1,200 ea 11/20/22 (Aqinject Pen Needle) furosemide 20 mg tablet (Lasix) 20 mg PO DAILY PRN edema, wt gain 11/22/22 #30 tabs lisinopril 40 mg tablet 40 mg PO DAILY #90 tabs 11/22/22 potassium chloride 10 mEq 10 meq PO DAILY PRN for edema #90 11/22/22 capsule,extended release caps glipizide 2.5 mg tablet, extended 2.5 mg PO DAILY diabetes #90 tabs 12/07/22 release 24 hr meloxicam 15 mg tablet 15 mg PO DAILY PRN pain #30 tabs 12/07/22 methocarbamol 500 mg tablet 500 mg PO TID #30 tabs 12/07/22 trazodone 100 mg tablet 100 mg PO DAILY #90 tabs 12/07/22 valacyclovir 500 mg tablet 500 mg PO DAILY #90 tabs 12/07/22 dexacom 6 sensors three pack #1 ea 12/27/22 dexacom 6 transmiter #1 ea 12/27/22 blood-glucose meter,continuous #1 ea 12/28/22 (Dexcom G6 Assistant District Attorney) blood-glucose transmitter (Dexcom #1 ea 12/28/22 G6 Transmitter device) lancets 28 gauge (FreeStyle #100 ea 01/25/23 Lancets) blood-glucose sensor (Dexcom G6 #3 ea 02/04/23 Sensor device) doxycycline hyclate 100 mg capsule 100 mg PO BID #14 caps 03/02/23 omeprazole 40 mg capsule,delayed 40 mg PO DAILY #90 caps 03/11/23 release alprazolam 1 mg tablet (Xanax) 1 mg PO BID PRN anxiety #3 tabs 03/19/23 fluconazole 200 mg tablet 200 mg PO DAILY #1 tab 03/19/23 (Diflucan) Allergies Allergy/AdvReac Type Severity Reaction Status Date / Time topiramate [From TOPAMAX] Allergy Unknown Verified 03/02/23 17:37 bupropion [From Wellbutrin] Allergy Verified 03/02/23 17:37 cephalexin [From Keflex] Allergy Verified 03/02/23 17:37 Iodinated Contrast Media Allergy Verified 03/02/23 17:37 sulfamethoxazole Allergy Verified 03/02/23 17:37 [From Bactrim] trimethoprim [From Bactrim] Allergy Verified 03/02/23 17:37 Patient History Medical History (Updated 03/19/23 @ 09:32 by Tosha Novak DO) JUDIT (obstructive sleep apnea) CAD (coronary artery disease) Mixed hyperlipidemia Tobacco dependence Type 2 diabetes mellitus with hyperglycemia, with long-term current use of insulin Bipolar 2 disorder Morbid obesity Surgical History Status post cholecystectomy Status post tubal ligation History of tonsillectomy Status post delivery Status post delivery Status post delivery Family History Father Heart disease Hypertension Heart attack Mother Mental health problem Hypertension Social History Smoking Status: Former smoker Smoking Status: Former smoker tobacco type: cigarettes alcohol intake frequency: other Substance Use Type: former substance user Exam Initial Vital Signs Initial Vital Signs: Vital Signs Temperature 97.1 F L 03/19/23 08:21 Pulse Rate 85 03/19/23 08:21 Respiratory Rate 20 03/19/23 08:21 Blood Pressure 125/66 03/19/23 08:21 Pulse Oximetry 100 03/19/23 08:21 Oxygen Delivery Method Room Air 03/19/23 08:21 GENERAL: Well-appearing, well-nourished and in no acute distress. CARDIOVASCULAR: peripheral pulses in tact, cap refill <2 sec RESPIRATORY: No respiratory distress, speaks in full sentences without difficulty EXTREMITIES: Normal range of motion, no clubbing or edema. Neurovascularly intact NEUROLOGICAL: Cranial nerves II through XII grossly intact. Normal gait and speech. SKIN: Warm, dry, no petechiae, no rashes or lesions. Course Vital Signs Vital signs: Vital Signs - 8 hr 03/19/23 08:21 03/19/23 09:45 Temperature 97.1 F L Pulse Rate 85 98 H Respiratory Rate 20 18 Blood Pressure 125/66 122/70 Pulse Oximetry 100 98 Oxygen Delivery Method Room Air Room Air MDM - Recheck/Abnormal Lab/Rx MDM Narrative Medical decision making narrative: Patient 47-year-old female on longstanding Xanax twice daily. Having a difficult time getting prescription refilled. Discussed with her that I can not refill her full amount. I have called and verified that she is called the clinic multiple times requesting for refill of medication. Unclear what the hang up is. I will give her a couple tablets of Xanax other she does not have a withdrawal seizure. She is also requesting medication for her yeast infection. At this time no acute distress not having severe anxiety and vitals are stable Discharge Plan Departure Patient Disposition: Home Clinical Impression: Anxiety, Encounter for medication refill Instructions: DI for Anxiety -- Adult Activity Restrictions/Additional Instructions: *You have been diagnosed with anxiety *What to do: At this time I did call and talk with the clinic. Be sure to follow-up I can not write you a full month's worth of Xanax *Continue to take medications as directed Xanax 1 mg twice a day Diflucan 200 mg x 1 *Follow up with your primary care provider in 2-3 days or call [phone] *Return to ER if you should have any new, worsening or concerning symptoms Prescriptions: New alprazolam [Xanax] 1 mg tablet 1 mg PO BID PRN (Reason: anxiety) Qty: 3 0RF fluconazole [Diflucan] 200 mg tablet 200 mg PO DAILY Qty: 1 0RF No Action aripiprazole [Abilify] 15 mg tablet 15 mg PO DAILY Qty: 30 11RF (DME) pen needle, diabetic [Aqinject Pen Needle] 32 gauge x 5/32 needle See Rx Instructions .Route Qty: 1200 3RF Rx Instructions: use to inject insulin 4-6 times a day as needed. potassium chloride 10 mEq capsule, extended release 10 meq PO DAILY PRN (Reason: for edema) Qty: 90 3RF lisinopril 40 mg tablet 40 mg PO DAILY Qty: 90 3RF (DME) dexacom 6 sensors three pack See Rx Instructions .Route .MEDSUPPLY Qty: 1 0RF Rx Instructions: As directed (DME) dexacom 6 transmiter See Rx Instructions .Route .MEDSUPPLY Qty: 1 0RF Rx Instructions: As directed (DME) Dexcom G6 Assistant District Attorney Misc See Rx Instructions .Route Qty: 1 2RF Rx Instructions: Use to continuously monitor blood sugars (DME) Dexcom G6 Transmitter Device See Rx Instructions .Route Qty: 1 2RF Rx Instructions: Use to continuously monitor blood sugars (DME) lancets [FreeStyle Lancets] 28 gauge misc See Rx Instructions .Route Qty: 100 11RF Rx Instructions: use to check blood glucose three times a day. (DME) Dexcom G6 Sensor Device See Rx Instructions .Route Qty: 3 4RF Rx Instructions: Use to continuously monitor blood sugars omeprazole 40 mg capsule,delayed release(DR/EC) 40 mg PO DAILY Qty: 90 3RF alprazolam 1 mg tablet 1 mg PO BID PRN trazodone 100 mg tablet 100 mg PO DAILY Qty: 90 3RF valacyclovir 500 mg tablet 500 mg PO DAILY Qty: 90 3RF methocarbamol 500 mg tablet 500 mg PO TID Qty: 30 2RF meloxicam 15 mg tablet 15 mg PO DAILY PRN (Reason: pain) Qty: 30 11RF Rx Instructions: with food glipizide 2.5 mg tablet extended release 24hr 2.5 mg PO DAILY Qty: 90 3RF Rx Instructions: stop pioglitizone insulin glargine [Basaglar KwikPen U-100 Insulin] 100 unit/mL (3 mL) insulin pen 40 unit SUBCUT QAM insulin lispro [Admelog U-100 Insulin lispro] 100 unit/mL solution 1 sliding scale dose SUBCUT USEASDIRECTD atorvastatin 40 mg tablet 40 mg PO DAILY metformin 500 mg tablet 1,000 mg PO BID Qty: 360 3RF furosemide [Lasix] 20 mg tablet 20 mg PO DAILY PRN (Reason: edema, wt gain) Qty: 30 11RF hydroxyzine HCl 50 mg tablet 50 mg PO BID oxcarbazepine 300 mg tablet 300 mg PO BID Rx Instructions: 300mg in the morning and 600mg at night polyethylene glycol 3350 [Miralax] 17 gram/dose powder 17 g PO DAILY Qty: 510 1RF famotidine 40 mg tablet 40 mg PO DAILY Qty: 30 3RF doxycycline hyclate 100 mg capsule 100 mg PO BID Qty: 14 0RF Referrals: Kevin Jaimes MD [Primary Care Provider] - Stand Alone Forms: Patient Portal/API
[2023-03-19 09:45] VITALS: BP 122/70; PULSE 98; RESP 18; O2SAT 98
== END 2023-03-19 09:46 | disposition home or self-care (01) ==
PROVIDERS: Emergency Provider Emergency Medicine; Family Provider Family Medicine; PCP Family Medicine
DX: F41.9 Anxiety disorder, unspecified (principal)
CPT/HCPCS: 99281

== ENCOUNTER → 2023-04-02 11:00 | Outpatient (CLI) | payer OTHER, MEDICAID, SELFPAY ==
[2023-04-02 12:56] LABS: Alanine Aminotransferase 25 IU/L (<35); Albumin 3.9 g/dL (3.5-5.0); Albumin Globulin Ratio 1.4 (1.0-2.8); Alkaline Phosphatase 89 U/L (38-126); Aspartate Aminotransferase 30 IU/L (14-36); BUN Creatinine Ratio 29.2 (6-22); Bilirubin Total 0.3 mg/dL (0.2-1.3); Blood Urea Nitrogen 19 mg/dL (7-17); Calcium 9.8 mg/dL (8.4-10.2); Carbon Dioxide 23 mmol/L (22-32); Chloride 101 mmol/L (98-107); Cholesterol 151 mg/dL (140-199); Estimated Glomerular Filt Rate > 60 mL/min (>60); Globulin 2.8 g/dL (1.7-4.1); Glucose 177 mg/dL (70-100); HDL Cholesterol 42 mg/dL (40-60); HEMOLYSIS < 15 (0-50); LDL Cholesterol Calculated 65 mg/dL (<100); Potassium 4.3 mmol/L (3.4-5.1); Sodium 136 mmol/L (137-145); Total Protein 6.7 g/dL (6.3-8.2); Triglycerides 221 mg/dL (35-150)
[2023-04-04 16:12] LABS: HIV 1 & 2 Ab/Ag 4th Gen Combo NEGATIVE (NEGATIVE); Hep C Virus Ab w/Reflex Quant NEGATIVE s/c (NEGATIVE)
== END ==
LOC: LAB 11:02
PROVIDERS: Family Provider Family Medicine; PCP Family Medicine; Referring Provider Family Medicine; Visit Provider Family Medicine
DX: Z11.59 Encounter for screening for other viral diseases (principal); E78.5 Hyperlipidemia, unspecified; N89.8 Other specified noninflammatory disorders of vagina
CPT/HCPCS: 36415; 80053; 80061; 86803; 87389

== ENCOUNTER → 2023-04-18 10:16 | Outpatient (CLI) | payer OTHER, MEDICAID, SELFPAY ==
--- NOTE | 2023-04-25 17:12 | DIAB.MNT ---
Initial Diabetes Medical Nutrition Therapy Assessment Name: Jamila Foster Date: 04/18/23 Time: 2490-1950a Dx: Type II Diabetes Jamila presents for initial DM visit. Reports she was dx with dm in 2013. Last hgA1c of 9.5%. Taking glipizide, metformin, and MDI. Ordered Medtronic pump. 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 Endorses substance use since age 15 until recent. Thinks this has impacted her ability to feel hunger/fullness appropriately. Thinks she may have gastroparesis based on a EGD. Has dentures but prefers to not use them, which impacts her food options. Wants to know what kind of soft foods she can eat without drastically impacting bg. Usually wears a Dexcom g7. Likely will need to switch to g6 for pump. Plans to see Jaimie at [facility] for pump placement. Diet Recall: 6-8a: 2c cereal with sweet almond milk 1p: sandwich sn: 1-3 pieces of cho, trying to avoid junk foods,ie chips and pork rinds 5p: chicken or fish with 1c pasta or rice +/- 1c corn. 3a: 1oz bag of chips Millie; 16-32oz water, coffee x 1c. Moderately dark urine reported, predicted inadequate fluid intake. Denies emotional eating, though states she was eating pb through the night until recently. In therapy, which she feels is helping. Anthropometrics: Ht: 61.5 Wt: 226# 11/2022 Physical Activity: chair exercises q day for 15 min, walking 6-10,000 steps per day Self-Monitoring Blood Glucose: States numbers are always in the 250s. No CGM sensor currently. Diabetes Medications: Glipizide 2.5mg 1000mg Metformin BID 40u AM Glargine Lispro SSI Pertinent Labs: HgA1c 9.55 10/2022 Past Medical History: (Last Updated 12/24/22 @ 16:48 by Lilliana Gallagher DO) Bipolar 2 disorder CAD (coronary artery disease) Mixed hyperlipidemia Morbid obesity JUDIT (obstructive sleep apnea) Tobacco dependence Type 2 diabetes mellitus with hyperglycemia, with long-term current use of insulin Nutrition Rx: Carbohydrates: Meal:30-45g Snack:15-30g; Plate Method Nutrition Diagnosis: - Nutrition and food related knowledge deficit r/t limited education previously aeb pt report and diet recall - Predicted inadequate fluid intake r/t <60oz fluids daily aeb diet recall Intervention: This participant was very receptive. Provided appropriate educational handouts. Discussed the following topics: Completed intake assessment. Discussed barriers to care. Pathophysiology of T2DM HgA1c, its correlation to blood glucose numbers, and rationale for goal Plate Method, impact of macronutrients on blood sugar, meal timing, pairing macronutrients and spreading out carbohydrates for better blood glucose management Recommended servings for carbohydrates at meals and snacks Smoothie ideas with cho and protein Brainstormed appropriate meal plan based on food preferences Role of physical activity Encouraged fluids hunger/fullness and meal timing Created SMART goals for patient self-care and success. Goals: Take a photo of bread label at home Try a smoothie Eat q 3-4 hours Follow-up: RAMIRO SABILLON follow-up in 2-3 weeks Arcelia Bell RDN, DANIELLEES Certified Diabetes Care and Tax Compliance Manager P: [phone] Thank you for this referral
== END ==
LOC: DIET 10:17
PROVIDERS: Family Provider Family Medicine; PCP Family Medicine; Referring Provider Family Medicine; Visit Provider Family Medicine
DX: E11.9 Type 2 diabetes mellitus without complications (principal); Z79.84 Long term (current) use of oral hypoglycemic drugs; Z79.4 Long term (current) use of insulin; Z71.3 Dietary counseling and surveillance
CPT/HCPCS: 97802

== ENCOUNTER → 2023-05-01 06:32 | Outpatient (CLI) | payer OTHER, MEDICAID, SELFPAY ==
--- NOTE | 2023-05-01 06:34 | DI.CT.S_ITS ---
PROCEDURE: CT CHEST WO CON INDICATIONS: Pulmonary hypertension, unspecified TECHNIQUE: Noncontrast 5 mm thick sections acquired from the pulmonary apices to the posterior costophrenic angles. 1 mm lung window, 5 mm thick coronal and sagittal and 7 mm axial MIP reformats were then acquired. For radiation dose reduction, the following was used: automated exposure control, adjustment of mA and/or kV according to patient size. COMPARISON: [facility], CT, ABDOMEN/PELVIS WITH CONTRAST, 07/31/2015, 23:51. FINDINGS: Image quality: Diagnostic. Lower Neck: No enlarged lymph nodes. Thyroid: No thyroid nodules which require sonographic follow up, per consensus guidelines. Axillae: No enlarged lymph nodes. Chest Wall: Unremarkable. Bones: Unremarkable. Lungs and Pleura: No pneumothorax or pleural effusions. Stable triangular shaped nodules along an accessory fissure of the right lower lobe compared with 2016 (series 3, image 149), presumably benign intrapulmonary lymph nodes. Heart: Heart size is normal. No pericardial effusion. Thoracic Vessels: The aorta and pulmonary arteries demonstrate normal size. Mediastinum and Renetta: No enlarged lymph nodes. Esophagus: No wall thickening. No hiatal hernia. Upper Abdomen: Round contour of the superior pole of the left kidney. IMPRESSION: Pulmonary artery measures 2.8 centimeters, within normal limits for age. Dictated by: Zackary Prieto M.D. on 05/01/2023 at 9:34 Approved by: Zackary Prieto M.D. on 05/01/2023 at 10:45
--- NOTE | 2023-05-01 06:53 | DI.ECHO.S_ITS ---
[facility] +---------+ : : [address] : : : : [id number] : : : : Phone: [phone]+ Echocardiogram Report + + :Name: MARTINE METZ Study Date: 05/01/2023 Height: 61.5 in: :[facility] ReadingLocation: Weight: 224 lb : : Gender: Female BSA: 2.0 m2 : :: 1975 Age: 47 yrs BP: 104/76 mmHg: :Reason For Study: PULMONARY HYPERTENSION : :Ordering Physician: FLAVIO, : :YARA Performed By: Brenna Gill : :Referring: YARA MUNIZ : + + Interpretation Summary Normal sinus rhythm. Normal LV size and wall thickness. Normal wall motion and LV systolic function. Ejection fraction is 60-65%. Normal chamber sizes. No significant valvular abnormalities. PA systolic pressure cannot be reliably estimated due to lack of significant TR jet. However there is no evidence of pulmonary hypertension given normal RV and RA size and normal pulmonic valve acceleration time. No prior study available for comparison. Procedure: A two-dimensional transthoracic echocardiogram with color flow and Doppler was performed. The study quality was technically adequate. There is no prior echocardiogram noted for this patient. The patient was in sinus rhythm with heart rates between 69-78 bpm during the exam. Left Ventricle: The left ventricle is normal in size and wall thickness. The ejection fraction is estimated to be 60-65%. Right Ventricle: The right ventricle is at the upper limits of normal in size. The right ventricular systolic function is normal. Atria: The left atrial size is normal. Right atrial size is normal. There is no Doppler evidence for an interatrial shunt. Mitral Valve: The mitral valve is normal in structure and function. There is trace mitral regurgitation. Aortic Valve: The aortic valve is trileaflet. The aortic valve opens well. There is no aortic valve stenosis. There is trace aortic regurgitation. Tricuspid Valve: The tricuspid valve is normal in structure and function. There is trace tricuspid regurgitation. Pulmonic Valve: The pulmonic valve is not well visualized. There is no pulmonic valvular regurgitation. Great Vessels: The aortic root is normal size. The dimensions of the ascending aorta are normal. The IVC is of normal diameter and collapses greater than 50% with a sniff. This suggests a low right atrial pressure of 3 mm Hg. Pericardium/ Pleura There is no pericardial effusion. There is no pleural effusion. MMode/2D Measurements & Calculations LVIDd: 5.2 cm LVOT diam: 2.0 cm LVIDs: 3.2 cm Ao root diam: 2.6 cm FS: 38.8 % asc Aorta Diam: 2.8 cm IVSd: 0.83 cm Ao Arch Diam (Prox Trans): 2.6 cm LVPWd: 1.0 cm LV mary. diameter/BSA (cm/m^2): 2.6 LV sys. diameter/BSA (cm/m^2): 1.6 LA A2 area: 21.1 cm2 RA long axis: 5.4 cm LA A4 area: 17.3 cm2 RA area: 17.8 cm2 LA length (vol): 5.6 cm RA vol: 50.2 ml LA vol: 55.8 ml RA : 25.1 ml/m2 LA vol index: 27.9 ml/m2 IVC diam: 1.7 cm RVD1 (basal): 4.1 cm TAPSE: 2.3 cm Doppler Measurements & Calculations Ao V2 max: 191.9 cm/sec LVOT Max Dejuan: 112.4 cm/sec Ao V2 mean: 136.9 cm/sec LV V1 max P.1 mmHg Ao max P.7 mmHg LV V1 VTI: 22.5 cm Ao mean P.3 mmHg JOSHUA(I,D): 1.8 cm2 Ao V2 VTI: 39.1 cm JOSHUA(V,D): 1.8 cm2 sev ratio: 0.58 JOSHUA indexed to BSA (cm^2/m^2): 0.90 MV E max dejuan: 117.2 cm/sec PA V2 max: 103.9 cm/sec MV A max dejuan: 92.3 cm/sec PA V2 mean: 77.4 cm/sec MV E/A: 1.3 PA mean P.6 mmHg Med Peak E' Dejuan: 9.4 cm/sec PA pr(Accel): 53.3 mmHg E/E' med: 12.4 Lat Peak E' Dejuan: 13.4 cm/sec E/E' lat: 8.7 E/e' average: 10.6 MV dec time: 0.27 sec SV(LVOT): 70.1 ml Electronically signed by: Monica Barbosa M.D. on Reading Physician:05/01/2023 03:20 PM
== END ==
LOC: ECHO 06:33
PROVIDERS: Family Provider Family Medicine; PCP Family Medicine; Referring Provider Family Medicine; Visit Provider Family Medicine
DX: I27.20 Pulmonary hypertension, unspecified (principal); R91.8 Other nonspecific abnormal finding of lung field; E11.9 Type 2 diabetes mellitus without complications; Z79.84 Long term (current) use of oral hypoglycemic drugs; Z79.4 Long term (current) use of insulin; Z71.3 Dietary counseling and surveillance
CPT/HCPCS: 71250; 93306; 97803

== ENCOUNTER → 2023-05-01 07:46 | Outpatient (CLI) | payer OTHER, MEDICAID, SELFPAY ==
--- NOTE | 2023-05-01 10:07 | DIAB.MNTFU ---
Follow-up Diabetes Medical Nutrition Therapy Assessment Name: Jamila Foster Date: 05/01/23 Time: 90a Dx: Type II Diabetes Jamila presents for DM follow-up. Reports increased snacking recently. Also feeling fatigue over the last two days resulting in increased napping during the day. Not wearing CGM sensor currently, so unclear if r/t hyperglycemia or other etiology. Reports PCP is checking labs for thyroid deficiencies. Also has alopecia. Choosing bread with lower carb (2 slices for 17g CHO). Did not make smoothies due to needing to use step mother's studio operations engineer in charge. States she needs to get her own studio operations engineer in charge. Plans to move to her own apartment with her two sons (age 25 and 17). Diet recall indicates mostly moderate carb intake with some snacks higher in carb and low in protein. Some higher carb dinners, ie ravioli with bread Fluids much improved. Endorses beader tender colored urine indicating better hydration. Reports new DM med Januvia, but unclear of dose. Plans to place Medtronic pump with rep on 05/09/23. Will need to switch to Dexcom G6 at that time or sooner. Diet Recall: 5-7a: 1c cooked oats with PB, butter, splenda, coffee unsweet +/-: cheese or lunch meat 1p: sandwich 3p: 2c chips with tea 5p: forbes/meat burrito x 1 with veg OR psole x 1 bowl (30g CHO predicted) OR 2c Ravioli with 2 slices white bread 7p: 2c chips with tea or water Millie: 32oz water, 24oz tea with splenda Anthropometrics: Ht: 61.5 Wt: 226# 11/2022 no wt today Physical Activity: chair exercises q day for 15 min, walking 6-10,000 steps per day. No change. Self-Monitoring Blood Glucose: No CGM sensor. States she may still have refills for G6. She plans to call pharmacy today. States she has a hard time keeping G7 on her arm. If she only has rf for G7 will message or call RD for placement tomorrow. If G6 will place herself. Diabetes Medications: Jardiance (unknown dose) 1000mg Metformin BID 40u AM Glargine Lispro SSI-- 2-10u TID Pertinent Labs: HgA1c 9.55 10/2022 Past Medical History: (Last Updated 12/24/22 @ 16:48 by Lilliana Gallagher DO) Bipolar 2 disorder CAD (coronary artery disease) Mixed hyperlipidemia Morbid obesity JUDIT (obstructive sleep apnea) Tobacco dependence Type 2 diabetes mellitus with hyperglycemia, with long-term current use of insulin Nutrition Rx: Carbohydrates: Meal:30-45g Snack:15-30g; Plate Method Nutrition Diagnosis: - Nutrition and food related knowledge deficit r/t limited education previously aeb pt report and diet recall- improved/in progress - Predicted inadequate fluid intake r/t <60oz fluids daily aeb diet recall- improved - Inconsistent protein intake r/t nutrition related knowledge deficit aeb diet recall missing protein with snacks- new - Excessive CHO intake r/t some meals/snacks higher than nutrition rx aeb diet recall- new Intervention: This participant was very receptive. Provided appropriate educational handouts. Discussed the following topics: Meal/snack ideas and carb portion review Review of bread label Macronutrient pairing Progress in hydration Troubleshooting Dexcom sensor issues Impact of hyperglycemia possibly on fatigue Physical activity Created SMART goals for patient self-care and success. Goals: Take a photo of bread label at home- met Try a smoothie- not met Eat q 3-4 hours - met supervisor poultry farm Dexcom sensors and message/call RD/RAMANDEEP- new Add cheese or other prot to snacks- new Check BG today- new Follow-up: RAMIRO SABILLON follow-up in 2-3 weeks or sooner francisco Bell RDN, RAMANDEEP Certified Diabetes Care and Field Operations Farm Manager P: [phone] Thank you for this referral
== END ==
LOC: DIET 07:46
PROVIDERS: Family Provider Family Medicine; PCP Family Medicine; Referring Provider Family Medicine; Visit Provider Family Medicine
DX: E11.9 Type 2 diabetes mellitus without complications (principal); Z79.84 Long term (current) use of oral hypoglycemic drugs; Z79.4 Long term (current) use of insulin; Z71.3 Dietary counseling and surveillance
CPT/HCPCS: 97803

== ENCOUNTER 2023-05-07 09:00 | Outpatient (RCR) | payer OTHER, MEDICAID, SELFPAY ==
--- NOTE | 2023-03-21 14:09 | OT.OP.EVAL ---
Visit Care Team Role Provider Type Lilliana Gallagher DO Family Provider Physician Primary Care Provider Specialty: Family Practice Address: [address] [place] [address], [address], [place], [address] Email: [email or web address] Attending Provider Non-Staff Referring Provider Specialty: Medical Address: [facility] Orthopedics, [address] [place] [address] , [place], [address] Email: Occupational Therapy Initial Evaluation OT Outpatient Adult Evaluation Start: 03/21/23 09:43 Freq: Status: Active Protocol: Document 03/21/23 09:45 AMS (Rec: 03/21/23 09:45 AMS [id number]) General Information - Adult Visit Number 03/08 Plan of Care Dates 03/21/23 - 05/02/23 Insurance Information [facility]; *Auth x 12 visits including eval Visit Start Time 09:00 Visit Stop Time 09:35 Treatment Setting Outpatient Care Note Type Initial Evaluation Identification Confirmed Yes Identification Confirmed By Self Goals Short Term Goals 1. Jamila will present with increased ability to engage in meaningful activities in a variety of environments, as evidenced by the followina. Jamila will obtain a QuickDASH UE Outcome Measure Score of 50.00 or less. 1b. Jamila will obtain a QuickDASH UE Sports/Performing Arts Module Score of 50.00 or less. 1c. Jamila will verbally report active utilization of the left hand on a daily basis to complete various functional tasks with decreased reliance on family support. For example, Jamila will report ability to complete dishes without family support. 2. Jamila will present with improved pain-free range of motion of the L wrist: 2a. 0-35 degrees active pain- free L wrist flexion. 2b. 0-55 degrees active pain- free L wrist extension. Intermediate Goals 1. Jamila will be modified independent with execution of home exercise program uitilizing provided written and visual instructions from therapist as needed. 2. Jamila will present with increased ability to engage in meaningful activities in a variety of environments; this will be evidenced by Jamila's indication of 2 or less out of 10 on whole body and hand/wrist Pain Assessment Grid relative to the volar surface(s) of the L 3rd digit/ hand/wrist. Assessment/Plan Treatment Assessment Jamila is a right hand dominant 47 y.o.; she was referred to outpatient OT secondary to recent L CTR and L 3rd digit trigger finger release surgeries. Jamila resides locally with her dad and his and her 2 kids. The family is helping her given the recent surgeries w/ dishes, meal preparation, laundry, cleaning. She is legally disabled and is not working; she does not drive and uses Medicaid for transportation. Jamila is being seen by outpatient PT here at [place] secondary to back, pelvic and bilateral hip pain. Medical history is significant for obstructive sleep apnea (uses CPAP); diabetes II; depression; coronary artery disease; anxiety; agoraphobia; bipolar 2. Jamila reported symptoms of bilateral 3rd digit trigger finger and bilateral CTS presented in August 2022; she received corticosteroid injections for treatment of bilateral 3rd digit trigger fingers w/ R 3rd digit symptoms subsequently resolving whereas L 3rd digit trigger finger symptoms remained. She ended up having the L CTR and L 3rd digit trigger finger surgeries; they also want to do R carpal tunnel surgery. Surgeon/clinic recently confirmed that wounds are healing well, including distal surgery site, and that are no signs of infection. She has a follow-up appointment w/ hand surgeon on March 27. QuickDASH UE Outcome Measure Score = 62.50; QuickDASH Sports/Performing Arts Module Score = 75.00. Hand/Wrist Pain Assessent Grid completed; indication of 3 out of 10 on pain scale relative to sites of surgery, as well as volar surfaces of L 3rd MPJ and L wrist. Whole Body Pain Assessment Grid completed; indication of 4 out of 10 on pain scale relative to volar surface of L hand/3rd digit/L wrist and medial left arm sh -> elbow. Mild edema. Goniometer Measurements = 0-27 degrees active L wrist flex vs 0-45 degrees active R wrist flex. 0 -50 degrees active L wrist ext vs 0-62 degrees active R wrist ext. 0-15 degrees active bilateral wrist [address]. 0-25 degrees active L wrist UD vs 0 -30 degrees active R wrist UD. 0-60 degrees active L 3rd digit MPJ flexion; 0-78 degrees active L 3rd digit PIPJ flexion; 0-37 degrees active L 3rd digit DIPJ flexion (vs 0-60 degrees active 3rd digit R DIPJ flex). Home Exercise Program 03/21/23 = Rec hourly active range of motion. Opposition to each digit 5 cycles w/ thumb. Gross digit flexion 10-20 repetitions. Active wrist flex /extension 10-20 repetitions ( instructed in gravity eliminated plane); active wrist RD/UD 10-20 repetitions. Discussion re: elevation/ raising of the hand to support edema/swelling management. Jamila reported that she will focus on thumb opposition and gross digit flex/fisting. Length of treatment (weeks) 6 Plan of Care Start Date 03/21/23 Plan of Care End Date 05/02/23 Comment 1-2 times per week Therapeutic Contents Active Range of Motion, Adaptive Equipment Education, Functional Activities,Home Exercise Program,Joint Protection,Manual Therapy, Education,Neurodevelopment Treatment,Neuromuscular Re- Education,Self-Care,Stretching /Flexibility Activities, Therapeutic Activities, Therapeutic Exercises Additional Types of Modalities Heat/Ice/Contrast Baths/ Paraffin/Ultrasound
--- NOTE | 2023-03-27 11:15 | OT.OP.TRT ---
Visit Care Team Role Provider Type Lilliana Gallagher DO Family Provider Physician Primary Care Provider Specialty: Family Practice Address: [address] [place] [address], [address], [place], [address] Email: [email or web address] Attending Provider Non-Staff Referring Provider Specialty: Medical Address: [facility] Orthopedics, [address] [place] [address], [place], [address] Email: Occupational Therapy Treatment Note OT Outpatient Treatment Note - Adult Start: 03/21/23 09:43 Freq: Status: Active Protocol: Document 03/27/23 11:03 AMS (Rec: 03/27/23 11:15 AMS [id number]) OT Outpatient Adult Treatment Note Session Time Visit Start Time 09:05 Visit Stop Time 09:37 Visit Information Visit Number 04/08 Plan of Care Dates 03/21/23 - 05/02/23 Insurance Information PW; *Auth x 12 visits including eval Setting Treatment Setting Outpatient Care Visit Type Note Type Treatment Note General Information General Information Jamila is a right hand dominant 47 y.o.; she was referred to outpatient OT secondary to recent L CTR and L 3rd digit trigger finger release surgeries. Jamila resides locally with her dad and his and her 2 kids. The family is helping her given the recent surgeries w/ dishes, meal preparation, laundry, cleaning. She is legally disabled and is not working; she does not drive and uses Medicaid for transportation. Jamila is being seen by outpatient PT here at [place] secondary to back, pelvic and bilateral hip pain. Medical history is significant for obstructive sleep apnea (uses CPAP); diabetes II; depression; coronary artery disease; anxiety; agoraphobia; bipolar 2. - Subjective Identification Type Name Identification Reconciled With Medical Record Observations Jaimla reported that she will see surgeon later on today. - Objective Objective Measurements Please refer to below for progress towards meeting established OT goals: Short Term Goals 1. Jamila will present with increased ability to engage in meaningful activities in a variety of environments, as evidenced by the followina. Jamila will obtain a QuickDASH UE Outcome Measure Score of 50.00 or less. 1b. Jamila will obtain a QuickDASH UE Sports/Performing Arts Module Score of 50.00 or less. 1c. Jamila will verbally report active utilization of the left hand on a daily basis to complete various functional tasks with decreased reliance on family support. For example, Jamila will report ability to complete dishes without family support. 2. Jamila will present with improved pain-free range of motion of the L wrist: 2a. 0-35 degrees active pain- free L wrist flexion. 2b. 0-55 degrees active pain- free L wrist extension. [employer] Goals 1. Jamila will be modified independent with execution of home exercise program uitilizing provided written and visual instructions from therapist as needed. 2. Jamila will present with increased ability to engage in meaningful activities in a variety of environments; this will be evidenced by Jamila's indication of 2 or less out of 10 on whole body and hand/wrist Pain Assessment Grid relative to the volar surface(s) of the L 3rd digit/ hand/wrist. - Exercises 1 Descriptor AROM. [place] eliminated plane. Wrist ext <-> Wrist flex. 4 x 10. [place] eliminated plane. Wrist RD <-> UD. 4 x 10. Gross flex/ext of digits. 3 x 10. Opposition of thumb to all digit pads. 3 x 10. Wrist ext -> wrist flex w/ proximal forearm support. [address] -> UD w/ proximal forearm support. 4 x 10. Wrist circles. CW. 4 x 10. Wrist circles. CCW. 4 x 10. - Assessment Assessment of Improvement Scab has fallen off at site of distal trigger finger surgery . Proximal scab at site of CTR is still present. (-) signs of redness of skin surrounding sites of surgery. Jamila reports that she does her exercises when she remembers; (+) spontaneous grasping and stabilization of personal cell phone w/ L hand w/ palmar cupping noted; thus, cell phone was not observed to be pressing/touching healing sites. Reviewed home exercises , as well as completed wrist ext and wrist RD w/ use of arm rest. Overall, good session. Continued outpatient OT is recommended to advance HEP as tolerated. Home Exercise Program 03/21/23 = Rec hourly active range of motion. Opposition to each digit 5 cycles w/ thumb. Gross digit flexion 10-20 repetitions. Active wrist flex /extension 10-20 repetitions ( instructed in gravity eliminated plane); active wrist RD/UD 10-20 repetitions. Discussion re: elevation/ raising of the hand to support edema/swelling management. Jamila reported that she will focus on thumb opposition and gross digit flex/fisting. - Plan Therapy Recommendations Continue with Current Program, Advance per Rehabilitation Protocol
--- NOTE | 2023-04-10 16:01 | OT.OP.TRT ---
Visit Care Team Role Provider Type Lilliana Gallagher DO Family Provider Physician Primary Care Provider Specialty: Family Practice Address: [address] [place] [address], [address], [place], [address] Email: [email or web address] Attending Provider Non-Staff Referring Provider Specialty: Medical Address: [facility], [address] [place] [address], [place], [address] Email: Occupational Therapy Treatment Note OT Outpatient Treatment Note - Adult Start: 03/21/23 09:43 Freq: Status: Active Protocol: Document 04/10/23 15:54 AMS (Rec: 04/10/23 16:01 AMS [id number]) OT Outpatient Adult Treatment Note Session Time Visit Start Time 09:00 Visit Stop Time 09:15 Visit Information Visit Number 05/06 Plan of Care Dates 03/21/23 - 05/02/23 Insurance Information PW; *Auth x 12 visits including eval Setting Treatment Setting Outpatient Care Visit Type Note Type Treatment Note General Information General Information Jamila is a right hand dominant 47 y.o.; she was referred to outpatient OT secondary to recent L CTR and L 3rd digit trigger finger release surgeries. Jamila resides locally with her dad and his and her 2 kids. The family is helping her given the recent surgeries w/ dishes, meal preparation, laundry, cleaning. She is legally disabled and is not working; she does not drive and uses Medicaid for transportation. Jamila is being seen by outpatient PT here at [place] secondary to back, pelvic and bilateral hip pain. Medical history is significant for obstructive sleep apnea (uses CPAP); diabetes II; depression; coronary artery disease; anxiety; agoraphobia; bipolar 2. - Subjective Identification Type Name Identification Reconciled With Medical Record Observations Jamila reported that she is seeing her surgeon for a follow-up appointment in April . Patient/Caregiver Compliance with Home Excellent Exercise Program - Objective Objective Measurements Please refer to below for progress towards meeting established OT goals: Short Term Goals 1. Jamila will present with increased ability to engage in meaningful activities in a variety of environments, as evidenced by the followina. Jamila will obtain a QuickDASH UE Outcome Measure Score of 50.00 or less. 1b. Jamila will obtain a QuickDA UE Sports/Performing Arts Module Score of 50.00 or less. 1c. Jamila will verbally report active utilization of the left hand on a daily basis to complete various functional tasks with decreased reliance on family support. For example, Jamila will report ability to complete dishes without family support. 2. Jamila will present with improved pain-free range of motion of the L wrist: 2a. 0-35 degrees active pain- free L wrist flexion. 2b. 0-55 degrees active pain- free L wrist extension. Media Marketing Coordinator Goals 1. Jamila will be modified independent with execution of home exercise program uitilizing provided written and visual instructions from therapist as needed. 2. Jamila will present with increased ability to engage in meaningful activities in a variety of environments; this will be evidenced by Jamila's indication of 2 or less out of 10 on whole body and hand/wrist Pain Assessment Grid relative to the volar surface(s) of the L 3rd digit/ hand/wrist. - Exercises 1 Descriptor AROM. [place] eliminated plane. Wrist ext <-> Wrist flex. 4 x 10. [place] eliminated plane. Wrist RD <-> UD. 4 x 10. Gross flex/ext of digits. 3 x 10. Opposition of thumb to all digit pads. 3 x 10. Gentle finger glides. 1 set of 5 per series. N/A 04/10/23 Wrist ext -> wrist flex w/ proximal forearm support. [address] -> UD w/ proximal forearm support. 4 x 10. Wrist circles. CW. 4 x 10. Wrist circles. CCW. 4 x 10. - Assessment Assessment of Improvement Scab has fallen off at site of distal trigger finger surgery . Proximal scab at site of CTR is still present. (-) signs of redness of skin surrounding sites of surgery. (+) spontaneous grasping and stabilization of personal cell phone w/ L hand for use/ talking on cell phone w/ no observable nonverbal signs of pain/discomfort. (+) attention to positions of the left hand that leads to discomfort w/ subsequent changing of grasp accordingly. Jamila denied any questions re: home exercise program w/ scheduled follow-up w/ surgeon post- surgery date x 8 weeks. Overall, good session. Continued outpatient OT is recommended to advance HEP as tolerated. Home Exercise Program 03/21/23 = Rec hourly active range of motion. Opposition to each digit 5 cycles w/ thumb. Gross digit flexion 10-20 repetitions. Active wrist flex /extension 10-20 repetitions ( instructed in gravity eliminated plane); active wrist RD/UD 10-20 repetitions. Discussion re: elevation/ raising of the hand to support edema/swelling management. Jamila reported that she will focus on thumb opposition and gross digit flex/fisting. - Plan Therapy Recommendations Continue with Current Program, Advance per Rehabilitation Protocol
--- NOTE | 2023-04-16 11:37 | OT.OP.TRT ---
Visit Care Team Role Provider Type Lilliana Gallagher DO Family Provider Physician Primary Care Provider Specialty: Family Practice Address: [address] [place] [address], [address], [place], [address] Email: [email or web address] Attending Provider Non-Staff Referring Provider Specialty: Medical Address: [facility] Orthopedics, [address] [place] [address], [place], [address] Email: Occupational Therapy Treatment Note OT Outpatient Treatment Note - Adult Start: 03/21/23 09:43 Freq: Status: Active Protocol: Document 04/16/23 11:32 AMS (Rec: 04/16/23 11:37 AMS [id number]) OT Outpatient Adult Treatment Note Session Time Visit Start Time 09:10 Visit Stop Time 09:30 Visit Information Visit Number 06/06 Plan of Care Dates 03/21/23 - 05/02/23 Insurance Information PW; *Auth x 12 visits including eval Setting Treatment Setting Outpatient Care Visit Type Note Type Treatment Note General Information General Information Jamila is a right hand dominant 47 y.o.; she was referred to outpatient OT secondary to recent L CTR and L 3rd digit trigger finger release surgeries. Jamila resides locally with her dad and his and her 2 kids. The family is helping her given the recent surgeries w/ dishes, meal preparation, laundry, cleaning. She is legally disabled and is not working; she does not drive and uses Medicaid for transportation. Jamila is being seen by outpatient PT here at [place] secondary to back, pelvic and bilateral hip pain. Medical history is significant for obstructive sleep apnea (uses CPAP); diabetes II; depression; coronary artery disease; anxiety; agoraphobia; bipolar 2. - Subjective Identification Type Name Identification Reconciled With Medical Record Observations Jamila has follow-up appointment w/ surgeon in April; no new concerns were reported. (+) functional incorporation of the left hand . Denied need to take any pain medication at this time. Denied any questions re: home exercise program. Patient/Caregiver Compliance with Home Excellent Exercise Program - Objective Objective Measurements Please refer to below for progress towards meeting established OT goals: Short Term Goals 1. Jamila will present with increased ability to engage in meaningful activities in a variety of environments, as evidenced by the followina. Jamila will obtain a QuickDASH UE Outcome Measure Score of 50.00 or less. 1b. Jamila will obtain a QuickDASH UE Sports/Performing Arts Module Score of 50.00 or less. 1c. Jamila will verbally report active utilization of the left hand on a daily basis to complete various functional tasks with decreased reliance on family support. For example, Jamila will report ability to complete dishes without family support. 2. Jamila will present with improved pain-free range of motion of the L wrist: 2a. 0-35 degrees active pain- free L wrist flexion. 2b. 0-55 degrees active pain- free L wrist extension. Intermediate Goals 1. Jamila will be modified independent with execution of home exercise program uitilizing provided written and visual instructions from therapist as needed. 2. Jamila will present with increased ability to engage in meaningful activities in a variety of environments; this will be evidenced by Jamila's indication of 2 or less out of 10 on whole body and hand/wrist Pain Assessment Grid relative to the volar surface(s) of the L 3rd digit/ hand/wrist. - Treatment 1 Descriptor Ultrasound. 20% duty cycle. 2. 0 w/cm2. Pulsed setting to address swelling of the palmar surface of the hand. Exercises 1 Descriptor AROM. [place] eliminated plane. Wrist ext <-> Wrist flex. 4 x 10. [place] eliminated plane. Wrist RD <-> UD. 4 x 10. Gross flex/ext of digits. 3 x 10. Opposition of thumb to all digit pads. 3 x 10. Gentle finger glides. 1 set of 5 per series. N/A 04/10/23 Wrist ext -> wrist flex w/ proximal forearm support. [address] -> UD w/ proximal forearm support. 4 x 10. Wrist circles. CW. 4 x 10. Wrist circles. CCW. 4 x 10. - Assessment Assessment of Improvement Ultrasound treatment was provided to address swelling to the volar surface of the L hand; skin intact pre- and post-treatment. Denied any discomfort from use of modality. Denied any questions regarding home exercise program. Continued outpatient OT is recommended to advance HEP as tolerated. Home Exercise Program 03/21/23 = Rec hourly active range of motion. Opposition to each digit 5 cycles w/ thumb. Gross digit flexion 10-20 repetitions. Active wrist flex /extension 10-20 repetitions ( instructed in gravity eliminated plane); active wrist RD/UD 10-20 repetitions. Discussion re: elevation/ raising of the hand to support edema/swelling management. Jamila reported that she will focus on thumb opposition and gross digit flex/fisting. - Plan Therapy Recommendations Continue with Current Program, Advance per Rehabilitation Protocol
--- NOTE | 2023-05-07 10:05 | OT.OPPOC ---
Physical, Occupational & Speech Therapy At [facility] Jamila Foster [id number] 1975 Visit Care Team Role Provider Type Lilliana Gallagher DO Family Provider Physician Primary Care Provider Address: [address] [place] [address], [address], [place], [address] Pelon Johns PA-C Attending Provider Non-Staff Referring Provider Address: [facility], [address] [place] [address], [id number] Occupational Therapy Plan of Care OT Outpatient Adult Evaluation Start: 03/21/23 09:43 Freq: Status: Active Protocol: Document 03/21/23 09:45 AMS (Rec: 03/21/23 09:45 [facility] [id number]) General Information - Adult Visit Information Visit Number 03/08 Plan of Care Dates 03/21/23 - 05/02/23 Insurance Information [facility]; *Auth x 12 visits including eval Session Time Visit Start Time 09:00 Visit Stop Time 09:35 Setting Treatment Setting Outpatient Care Visit Type Note Type Initial Evaluation Identification Identification Confirmed Yes Identification Confirmed By Self Goals Short Term Goals Short Term Goals 1. Jamila will present with increased ability to engage in meaningful activities in a variety of environments, as evidenced by the followina. Jamila will obtain a QuickDASH UE Outcome Measure Score of 50.00 or less. 1b. Jamila will obtain a QuickDASH UE Sports/Performing Arts Module Score of 50.00 or less. 1c. Jamila will verbally report active utilization of the left hand on a daily basis to complete various functional tasks with decreased reliance on family support. For example, Jamila will report ability to complete dishes without family support. 2. Jamila will present with improved pain-free range of motion of the L wrist: 2a. 0-35 degrees active pain- free L wrist flexion. 2b. 0-55 degrees active pain- free L wrist extension. Air Pollution Analyst Goals Half-Way Goals 1. Jamila will be modified independent with execution of home exercise program uitilizing provided written and visual instructions from therapist as needed. 2. Jamila will present with increased ability to engage in meaningful activities in a variety of environments; this will be evidenced by Jamila's indication of 2 or less out of 10 on whole body and hand/wrist Pain Assessment Grid relative to the volar surface(s) of the L 3rd digit/ hand/wrist. Assessment/Plan Assessment Treatment Assessment Jamila is a right hand dominant 47 y.o.; she was referred to outpatient OT secondary to recent L CTR and L 3rd digit trigger finger release surgeries. Jamila resides locally with her dad and his and her 2 kids. The family is helping her given the recent surgeries w/ dishes, meal preparation, laundry, cleaning. She is legally disabled and is not working; she does not drive and uses Medicaid for transportation. Jamila is being seen by outpatient PT here at [facility] secondary to back, pelvic and bilateral hip pain. Medical history is significant for obstructive sleep apnea (uses CPAP); diabetes II; depression; coronary artery disease; anxiety; agoraphobia; bipolar 2. Jamila reported symptoms of bilateral 3rd digit trigger finger and bilateral CTS presented in August 2022; she received corticosteroid injections for treatment of bilateral 3rd digit trigger fingers w/ R 3rd digit symptoms subsequently resolving whereas L 3rd digit trigger finger symptoms remained. She ended up having the L CTR and L 3rd digit trigger finger surgeries; they also want to do R carpal tunnel surgery. Surgeon/clinic recently confirmed that wounds are healing well, including distal surgery site, and that are no signs of infection. She has a follow-up appointment w/ hand surgeon on March 27. QuickDASH UE Outcome Measure Score = 62.50; QuickDASH Sports/Performing Arts Module Score = 75.00. Hand/Wrist Pain Assessent Grid completed; indication of 3 out of 10 on pain scale relative to sites of surgery, as well as volar surfaces of L 3rd MPJ and L wrist. Whole Body Pain Assessment Grid completed; indication of 4 out of 10 on pain scale relative to volar surface of L hand/3rd digit/L wrist and medial left arm sh -> elbow. Mild edema. Goniometer Measurements = 0-27 degrees active L wrist flex vs 0-45 degrees active R wrist flex. 0 -50 degrees active L wrist ext vs 0-62 degrees active R wrist ext. 0-15 degrees active bilateral wrist [address]. 0-25 degrees active L wrist UD vs 0 -30 degrees active R wrist UD. 0-60 degrees active L 3rd digit MPJ flexion; 0-78 degrees active L 3rd digit PIPJ flexion; 0-37 degrees active L 3rd digit DIPJ flexion (vs 0-60 degrees active 3rd digit R DIPJ flex). Home Exercise Program 03/21/23 = Rec hourly active range of motion. Opposition to each digit 5 cycles w/ thumb. Gross digit flexion 10-20 repetitions. Active wrist flex /extension 10-20 repetitions ( instructed in gravity eliminated plane); active wrist RD/UD 10-20 repetitions. Discussion re: elevation/ raising of the hand to support edema/swelling management. Jamila reported that she will focus on thumb opposition and gross digit flex/fisting. Plan Length of treatment (weeks) 6 Plan of Care Start Date 03/21/23 Plan of Care End Date 05/02/23 Comment 1-2 times per week Therapeutic Contents Active Range of Motion, Adaptive Equipment Education, Functional Activities,Home Exercise Program,Joint Protection,Manual Therapy, Education,Neurodevelopment Treatment,Neuromuscular Re- Education,Self-Care,Stretching /Flexibility Activities, Therapeutic Activities, Therapeutic Exercises Additional Types of Modalities Heat/Ice/Contrast Baths/ Paraffin/Ultrasound Functional Wrist/Hand Scan Hand Side Sensory Assessment Sensory Profile2 OT Outpatient Treatment Note - Adult Start: 03/21/23 09:43 Freq: Status: Active Protocol: Document 05/07/23 09:47 AMS (Rec: 05/07/23 10:05 AMS [id number]) OT Outpatient Adult Treatment Note Session Time Visit Start Time 09:05 Visit Stop Time 09:37 Visit Information Visit Number 07/06 Plan of Care Dates 05/02/23 - 06/06/23 Insurance Information [facility]; *Auth x 12 visits including eval Setting Treatment Setting Outpatient Care Visit Type Note Type Progress Note General Information General Information Jamila is a right hand dominant 47 y.o.; she was referred to outpatient OT secondary to recent L CTR and L 3rd digit trigger finger release surgeries. Jamila resides locally with her dad and his and her 2 kids. The family is helping her given the recent surgeries w/ dishes, meal preparation, laundry, cleaning. She is legally disabled and is not working; she does not drive and uses Medicaid for transportation. Jamila is being seen by outpatient PT here at [facility] secondary to back, pelvic and bilateral hip pain. Medical history is significant for obstructive sleep apnea (uses CPAP); diabetes II; depression; coronary artery disease; anxiety; agoraphobia; bipolar 2. - Subjective Identification Type Name Identification Reconciled With Medical Record Observations Jamila completed Hand/Wrist Pain Assessment Grid; indicated 3-4 out of 10 on pain scale relative to medial volar surface of palm. Patient/Caregiver Compliance with Home Excellent Exercise Program - Objective Objective Measurements Please refer to below for progress towards meeting established OT goals: Short Term Goals 1. Jamila will present with increased ability to engage in meaningful activities in a variety of environments, as evidenced by the followina. Jamila will obtain a QuickDASH UE Outcome Measure Score of 50.00 or less. 1b. Jamila will obtain a QuickDASH UE Sports/Performing Arts Module Score of 50.00 or less. 1c. Jamila will verbally report active utilization of the left hand on a daily basis to complete various functional tasks with decreased reliance on family support. For example, Jamila will report ability to complete dishes without family support. 2. Jamial will present with improved pain-free range of motion of the L wrist: 2a. 0-35 degrees active pain- free L wrist flexion. 05/07/23 = Goal Upgraded 2b. 0-60 degrees active pain- free L wrist extension. = Goal Upgraded GOALS MET 0-35 degrees active pain-free L wrist flexion. *MET 05/07/23 0-35 degrees vs initial 0-27 degrees active L wrist flex 0-55 degrees active pain-free L wrist extension. *MET 0-57 degrees vs initial 0- 45 degrees active R wrist flex Half-Way Goals 1. Jamila will be modified independent with execution of home exercise program uitilizing provided written and visual instructions from therapist as needed. 2. Jamila will present with increased ability to engage in meaningful activities in a variety of environments; this will be evidenced by Jamila's indication of 2 or less out of 10 on whole body and hand/wrist Pain Assessment Grid relative to the volar surface(s) of the L 3rd digit/ hand/wrist. 05/07/23 = indicated 3-4 out of 10 on pain scale - Treatment 2 Descriptor Paraffin bath. x 10 minutes. Skin intact pre- and post- treatment. 1 Descriptor Ultrasound. 20% duty cycle. 2. 0 w/cm2. Pulsed setting to address swelling of the palmar surface of the hand. Skin intact pre- and post- treatment. Exercises 2 Descriptor Goniometer measurements of wrist. - Assessment Assessment of Improvement Jamila has demonstrated progress. Pain/discomfort was indicated only in medial palm/ at site of surgery vs volar surface of L wrist and site of 3rd MPJ and proximal to MPJ and other site of surgery. She also is presenting with improving pain-free active range of motion of L wrist as demonstrated by meeting short term goals in this area; these goals were upgraded accordinly. She identifies a reduction in swelling of the L hand/wrist, although, mild edema is still present and is likely impacting range of motion. Jamila has responded positively to ultrasound and introduced paraffin bath to address swelling and support mobility of the hand; she responded positively as well to this modality. Jamila actively incorporates the left hand in her day-to-day life and completes her home exercises for range of motion/ which also address help w/ swelling reduction. Continued outpatient OT is recommended to advance HEP as tolerated; recommend assessing strength at time of next session. Home Exercise Program 03/21/23 = Rec hourly active range of motion. Opposition to each digit 5 cycles w/ thumb. Gross digit flexion 10-20 repetitions. Active wrist flex /extension 10-20 repetitions ( instructed in gravity eliminated plane); active wrist RD/UD 10-20 repetitions. Discussion re: elevation/ raising of the hand to support edema/swelling management. Jamila reported that she will focus on thumb opposition and gross digit flex/fisting. - Plan Comment 5 weeks Frequency of Treatment Once a Week Comment 1 x a week vs 1 x every other week Therapeutic Contents Active Range of Motion, Functional Activities,Home Exercise Program,Joint Protection,Manual Therapy, Education,Self-Care,Stretching /Flexibility Activities, Therapeutic Activities, Therapeutic Exercises, Modalities Modalities As Needed,As Prescribed Additional Types of Modalities Heat/Ice/Ultrasound/Paraffin Electronically Signed by: Marsha Lo, OT 05/07/23 1002 If you are in agreement with this Plan of Care, please return a signed and dated copy. I have reviewed this Plan of Care and certify that the skilled therapy services above are required to meet the patient?s needs. Physician Signature Date Printed Name and Credentials Clinical Instructor Signature Printed Name and Credentials
--- NOTE | 2023-06-10 09:27 | OT.OP.DC ---
Visit Care Team Role Provider Type Lilliana Gallagher DO Family Provider Physician Primary Care Provider Address: [address] [place] [address], [address], [place], [address] Email: [email or web address] Attending Provider Non-Staff Referring Provider Address: [facility], [address] [place] [address], [place], [address] Email: OT Outpatient OT Outpatient Adult Evaluation Start: 03/21/23 09:43 Freq: Status: Active Protocol: Document 03/21/23 09:45 AMS (Rec: 03/21/23 09:45 AMS [id number]) General Information - Adult Visit Information Visit Number 03/08 Plan of Care Dates 03/21/23 - 05/02/23 Insurance Information [facility]; *Auth x 12 visits including eval Session Time Visit Start Time 09:00 Visit Stop Time 09:35 Setting Treatment Setting Outpatient Care Visit Type Note Type Initial Evaluation Identification Identification Confirmed Yes Identification Confirmed By Self Goals Short Term Goals Short Term Goals 1. Jamila will present with increased ability to engage in meaningful activities in a variety of environments, as evidenced by the followina. Jamila will obtain a QuickDASH UE Outcome Measure Score of 50.00 or less. 1b. Jamila will obtain a QuickDASH UE Sports/Performing Arts Module Score of 50.00 or less. 1c. Jamila will verbally report active utilization of the left hand on a daily basis to complete various functional tasks with decreased reliance on family support. For example, Jamila will report ability to complete dishes without family support. 2. Jamila will present with improved pain-free range of motion of the L wrist: 2a. 0-35 degrees active pain- free L wrist flexion. 2b. 0-55 degrees active pain- free L wrist extension. Alarm Mechanic Goals Alarm Mechanic Goals 1. Jamila will be modified independent with execution of home exercise program uitilizing provided written and visual instructions from therapist as needed. 2. Jamila will present with increased ability to engage in meaningful activities in a variety of environments; this will be evidenced by Jamila's indication of 2 or less out of 10 on whole body and hand/wrist Pain Assessment Grid relative to the volar surface(s) of the L 3rd digit/ hand/wrist. Assessment/Plan Assessment Treatment Assessment Jamila is a right hand dominant 47 y.o.; she was referred to outpatient OT secondary to recent L CTR and L 3rd digit trigger finger release surgeries. Jamila resides locally with her dad and his and her 2 kids. The family is helping her given the recent surgeries w/ dishes, meal preparation, laundry, cleaning. She is legally disabled and is not working; she does not drive and uses Medicaid for transportation. Jamila is being seen by outpatient PT here at [facility] secondary to back, pelvic and bilateral hip pain. Medical history is significant for obstructive sleep apnea (uses CPAP); diabetes II; depression; coronary artery disease; anxiety; agoraphobia; bipolar 2. Jamila reported symptoms of bilateral 3rd digit trigger finger and bilateral CTS presented in August 2022; she received corticosteroid injections for treatment of bilateral 3rd digit trigger fingers w/ R 3rd digit symptoms subsequently resolving whereas L 3rd digit trigger finger symptoms remained. She ended up having the L CTR and L 3rd digit trigger finger surgeries; they also want to do R carpal tunnel surgery. Surgeon/clinic recently confirmed that wounds are healing well, including distal surgery site, and that are no signs of infection. She has a follow-up appointment w/ hand surgeon on March 27. QuickDASH UE Outcome Measure Score = 62.50; QuickDASH Sports/Performing Arts Module Score = 75.00. Hand/Wrist Pain Assessent Grid completed; indication of 3 out of 10 on pain scale relative to sites of surgery, as well as volar surfaces of L 3rd MPJ and L wrist. Whole Body Pain Assessment Grid completed; indication of 4 out of 10 on pain scale relative to volar surface of L hand/3rd digit/L wrist and medial left arm sh -> elbow. Mild edema. Goniometer Measurements = 0-27 degrees active L wrist flex vs 0-45 degrees active R wrist flex. 0 -50 degrees active L wrist ext vs 0-62 degrees active R wrist ext. 0-15 degrees active bilateral wrist [address]. 0-25 degrees active L wrist UD vs 0 -30 degrees active R wrist UD. 0-60 degrees active L 3rd digit MPJ flexion; 0-78 degrees active L 3rd digit PIPJ flexion; 0-37 degrees active L 3rd digit DIPJ flexion (vs 0-60 degrees active 3rd digit R DIPJ flex). Home Exercise Program 03/21/23 = Rec hourly active range of motion. Opposition to each digit 5 cycles w/ thumb. Gross digit flexion 10-20 repetitions. Active wrist flex /extension 10-20 repetitions ( instructed in gravity eliminated plane); active wrist RD/UD 10-20 repetitions. Discussion re: elevation/ raising of the hand to support edema/swelling management. Jamila reported that she will focus on thumb opposition and gross digit flex/fisting. Plan Length of treatment (weeks) 6 Plan of Care Start Date 03/21/23 Plan of Care End Date 05/02/23 Comment 1-2 times per week Therapeutic Contents Active Range of Motion, Adaptive Equipment Education, Functional Activities,Home Exercise Program,Joint Protection,Manual Therapy, Education,Neurodevelopment Treatment,Neuromuscular Re- Education,Self-Care,Stretching /Flexibility Activities, Therapeutic Activities, Therapeutic Exercises Additional Types of Modalities Heat/Ice/Contrast Baths/ Paraffin/Ultrasound Functional Wrist/Hand Scan Hand Side Sensory Assessment Sensory Profile2 OT Outpatient Treatment Note - Adult Start: 03/21/23 09:43 Freq: Status: Active Protocol: Document 06/10/23 09:25 AMS (Rec: 06/10/23 09:27 [facility] [id number]) OT Outpatient Adult Treatment Note Visit Information Visit Number 07/06 Plan of Care Dates 05/02/23 - 06/06/23 [facility]; *Auth x 12 visits including eval Visit Type Note Type Discharge Summary General Information General Information Jamila is a right hand dominant 47 y.o.; she was referred to outpatient OT secondary to recent L CTR and L 3rd digit trigger finger release surgeries. Jamila resides locally with her dad and his and her 2 kids. The family is helping her given the recent surgeries w/ dishes, meal preparation, laundry, cleaning. She is legally disabled and is not working; she does not drive and uses Medicaid for transportation. Jamila is being seen by outpatient PT here at [facility] secondary to back, pelvic and bilateral hip pain. Medical history is significant for obstructive sleep apnea (uses CPAP); diabetes II; depression; coronary artery disease; anxiety; agoraphobia; bipolar 2. - Subjective Observations Jamila was last seen on and outpatient OT POC on 06/06/23; thus, recommend d/c from outpatient OT at this time and re- evaluate as deemed appropriate by PCP w/ receipt of new referral. - Objective Objective Measurements Please refer to below for progress towards meeting established OT goals: Short Term Goals ALL GOALS D/C 06/10/23 1. Jamila will present with increased ability to engage in meaningful activities in a variety of environments, as evidenced by the followina. Jamila will obtain a QuickDASH UE Outcome Measure Score of 50.00 or less. 1b. Jamila will obtain a QuickDASH UE Sports/Performing Arts Module Score of 50.00 or less. 1c. Jamila will verbally report active utilization of the left hand on a daily basis to complete various functional tasks with decreased reliance on family support. For example, Jamila will report ability to complete dishes without family support. 2. Jamila will present with improved pain-free range of motion of the L wrist: 2a. 0-35 degrees active pain- free L wrist flexion. 05/07/23 = Goal Upgraded 2b. 0-60 degrees active pain- free L wrist extension. = Goal Upgraded GOALS MET 0-35 degrees active pain-free L wrist flexion. *MET 05/07/23 0-35 degrees vs initial 0-27 degrees active L wrist flex 0-55 degrees active pain-free L wrist extension. *MET 0-57 degrees vs initial 0- 45 degrees active R wrist flex Usp Goals ALL GOALS D/C 06/10/23 1. Jamila will be modified independent with execution of home exercise program uitilizing provided written and visual instructions from therapist as needed. 2. Jamila will present with increased ability to engage in meaningful activities in a variety of environments; this will be evidenced by Jamila's indication of 2 or less out of 10 on whole body and hand/wrist Pain Assessment Grid relative to the volar surface(s) of the L 3rd digit/ hand/wrist. 05/07/23 = indicated 3-4 out of 10 on pain scale - - Assessment Assessment of Improvement Jamila was last seen on and outpatient OT POC on 06/06/23; thus, recommend d/c from outpatient OT at this time and re- evaluate as deemed appropriate by PCP w/ receipt of new referral. - Plan Therapy Recommendations Discharge from Occupational Therapy
== END 2023-06-10 12:59 | disposition home or self-care (01) ==
LOC: OT 09:00
PROVIDERS: Family Provider Family Medicine; PCP Family Medicine; Referring Provider Physician Assistant Surgical; Visit Provider Physician Assistant Surgical
DX: M65.332 Trigger finger, left middle finger (principal); Z98.890 Other specified postprocedural states; R53.1 Weakness; R60.9 Edema, unspecified
CPT/HCPCS: 97018; 97035; 97110; 97165

== ENCOUNTER → 2023-06-13 15:38 | Outpatient (CLI) | payer OTHER, MEDICAID, SELFPAY | PROVIDERS: Family Provider Family Medicine; PCP Family Medicine; Visit Provider Nurse Practitioner Family | DX: N90.89 Other specified noninflammatory disorders of vulva and perineum (principal) | CPT/HCPCS: 87252 ==

== ENCOUNTER → 2023-08-27 16:33 | Outpatient (CLI) | payer OTHER, MEDICAID, SELFPAY ==
--- NOTE | 2023-08-27 16:34 | DI.MRI.S_ITS ---
PROCEDURE: MR LUMBAR SPINE WO CON INDICATIONS: LOW BACK PAIN TECHNIQUE: Noncontrast sagittal T1 spin echo and T2 fast echo, sagittal STIR, and T2 fast spin echo through the lumbar spine. In cases with scoliosis, additional coronal T2 fast spin echo may be performed. COMPARISON: None. FINDINGS: Image quality: Excellent. Alignment and Curvature: There is normal bony alignment. Bone Marrow: Marrow is of normal overall signal. No acute vertebral body compression fractures. Spinal Cord: Conus medullaris terminates at the L1 level. Visualized cord demonstrates normal signal and size. Paraspinous Soft Tissues: No paravertebral masses. T12-L1: Normal appearance. L1-L2: Normal appearance. L2-L3: Normal appearance. L3-L4: Disc height is maintained. Hypertrophic facet joints. Mild central stenosis. L4-L5: Disc height is maintained. No disc bulge. Hypertrophic facet joints. No central or foraminal stenosis. L5-S1: Normal appearance. IMPRESSION: Mild facet arthropathy in the lower lumbar spine without significant central or foraminal stenosis throughout the exam Approved by: Atul Finley M.D. on 08/27/2023 at 18:07
== END ==
LOC: MRI 16:33
PROVIDERS: Family Provider Family Medicine; PCP Family Medicine; Referring Provider Physician Assistant Surgical; Visit Provider Physician Assistant Surgical
DX: S39.012A Strain of muscle, fascia and tendon of lower back, initial encounter (principal); M47.816 Spondylosis without myelopathy or radiculopathy, lumbar region; M48.062 Spinal stenosis, lumbar region with neurogenic claudication
CPT/HCPCS: 72148

== ENCOUNTER 2023-08-28 08:46 | Emergency (ER) | payer OTHER, MEDICAID, SELFPAY ==
[2023-08-28 08:48] VITALS: BP 163/87; PULSE 93; RESP 14; TEMP 36.7; O2SAT 100; BMI 42.9
--- NOTE | 2023-08-28 09:06 | ED.GENADULT ---
HPI - General Adult General Stated complaint: low back pain Time Seen by Provider: 08/28/23 08:53 Source: patient Mode of arrival: Ambulatory Limitations: no limitations History of Present Illness HPI narrative: Patient is a 47-year-old female who has a longstanding history of lower back discomfort. She had an MRI done yesterday here at this facility ordered by an orthopedic provider. She stated that she does not have an appointment with the orthopedic provider until later this month to discuss the MRI results. She has been taking Tylenol and ibuprofen. She also has gabapentin. No new specific injury but the discomfort in her left-sided lower back which has been present for some time has been worsening over the past couple days to the point where she was having problems sitting and standing and walking. She was told by the orthopedic provider that she needed to come to the emergency department for pain medication. Related Data Home Medications Medication Instructions Recorded Confirmed atorvastatin 40 mg tablet 40 mg PO DAILY 11/08/22 06/13/23 insulin glargine 100 unit/mL (3 40 unit SUBCUT QAM 11/08/22 06/13/23 mL) subcutaneous pen (Basaglar KwikPen U-100 Insulin) insulin lispro 100 unit/mL 1 sliding scale dose SUBCUT 11/08/22 06/13/23 subcutaneous solution (Admelog USEASDIRECTD U-100 Insulin lispro) hydroxyzine HCl 50 mg tablet 50 mg PO BID 11/22/22 06/13/23 oxcarbazepine 300 mg tablet 300 mg PO BID 11/22/22 06/13/23 lisinopril 10 mg tablet 10 mg PO DAILY 06/13/23 06/13/23 Previous Rx's Medication Instructions Recorded polyethylene glycol 3350 17 17 g PO DAILY #510 grams 10/27/22 gram/dose oral powder (Miralax) aripiprazole 15 mg tablet (Abilify) 15 mg PO DAILY #30 tabs 11/15/22 pen needle, diabetic 32 gauge x #1,200 ea 11/20/22 (Aqinject Pen Needle) furosemide 20 mg tablet (Lasix) 20 mg PO DAILY PRN edema, wt gain 11/22/22 #30 tabs potassium chloride 10 mEq 10 meq PO DAILY PRN for edema #90 11/22/22 capsule,extended release caps meloxicam 15 mg tablet 15 mg PO DAILY PRN pain #30 tabs 10/13/23 methocarbamol 500 mg tablet 500 mg PO TID #30 tabs 12/07/22 trazodone 100 mg tablet 100 mg PO DAILY #90 tabs 12/07/22 valacyclovir 500 mg tablet 500 mg PO DAILY #90 tabs 12/07/22 lancets 28 gauge (FreeStyle #100 ea 01/25/23 Lancets) omeprazole 40 mg capsule,delayed 40 mg PO DAILY #90 caps 03/11/23 release alprazolam 1 mg tablet (Xanax) 1 mg PO BID PRN anxiety #3 tabs 03/19/23 hydrocodone 5 mg-acetaminophen 325 1 tab PO Q8H PRN pain #10 tabs 08/28/23 mg tablet Allergies Allergy/AdvReac Type Severity Reaction Status Date / Time semaglutide [From Ozempic] Allergy Severe gastroparal Verified 06/13/23 15:08 ysis topiramate [From TOPAMAX] Allergy Unknown Verified 06/13/23 15:08 bupropion [From Wellbutrin] Allergy Verified 06/13/23 15:08 cephalexin [From Keflex] Allergy Verified 06/13/23 15:08 Iodinated Contrast Media Allergy Verified 06/13/23 15:08 sulfamethoxazole Allergy Verified 06/13/23 15:08 [From Bactrim] trimethoprim [From Bactrim] Allergy Verified 06/13/23 15:08 Review of Systems Review of Systems Narrative: See HPI Patient History Medical History JUDIT (obstructive sleep apnea) CAD (coronary artery disease) Mixed hyperlipidemia Tobacco dependence Type 2 diabetes mellitus with hyperglycemia, with long-term current use of insulin Bipolar 2 disorder Morbid obesity Surgical History Status post cholecystectomy Status post tubal ligation History of tonsillectomy Status post delivery Status post delivery Status post delivery Family History Father Heart disease Hypertension Heart attack Mother Mental health problem Hypertension Social History Smoking Status: Former smoker Smoking Status: Former smoker tobacco type: cigarettes alcohol intake frequency: other Substance Use Type: former substance user Exam HENMT Head: normal to inspection and normocephalic Back/Spine/Pelvis Other: Mild discomfort to palpation left-sided lumbar paraspinal region Skin General: no rashes or lesions noted Neuro General: patient alert and patient awake Gait: normal gait Extrem General: capillary refill normal Course Orders Ordered: Discontinued Medications Hydromorphone HCl (Hydromorphone 1 Mg Inj) 1 mg IM NOW ONE Stop: 08/28/23 09:08 Medical Decision Making MDM Narrative Medical decision making narrative: Low suspicion for fracture cauda equina. No indication for further imaging studies here in the emergency department. No fevers. She has baseline medications at home so will provide a short course of pain medication from the emergency department. Patient needs to follow-up as outpatient for further evaluation and treatment. Discharge Plan Departure Patient Disposition: Home Clinical Impression: Low back pain radiating to left leg Instructions: DI for Low Back Pain Activity Restrictions/Additional Instructions: You need to follow-up with the orthopedic surgeon to discuss the results of the MRI when they are available. Continue to take all of your medications as directed. Contact your primary doctor for a follow-up. Prescriptions: New hydrocodone-acetaminophen 5-325 mg tablet 1 tab PO Q8H PRN (Reason: pain) Qty: 10 0RF No Action lisinopril 10 mg tablet 10 mg PO DAILY aripiprazole [Abilify] 15 mg tablet 15 mg PO DAILY Qty: 30 11RF (DME) pen needle, diabetic [Aqinject Pen Needle] 32 gauge x 5/32 needle See Rx Instructions .Route Qty: 1200 3RF Rx Instructions: use to inject insulin 4-6 times a day as needed. potassium chloride 10 mEq capsule, extended release 10 meq PO DAILY PRN (Reason: for edema) Qty: 90 3RF (DME) lancets [FreeStyle Lancets] 28 gauge misc See Rx Instructions .Route Qty: 100 11RF Rx Instructions: use to check blood glucose three times a day. omeprazole 40 mg capsule,delayed release(DR/EC) 40 mg PO DAILY Qty: 90 3RF trazodone 100 mg tablet 100 mg PO DAILY Qty: 90 3RF valacyclovir 500 mg tablet 500 mg PO DAILY Qty: 90 3RF methocarbamol 500 mg tablet 500 mg PO TID Qty: 30 2RF meloxicam 15 mg tablet 15 mg PO DAILY PRN (Reason: pain) Qty: 30 11RF Rx Instructions: with food insulin glargine [Basaglar KwikPen U-100 Insulin] 100 unit/mL (3 mL) insulin pen 40 unit SUBCUT QAM insulin lispro [Admelog U-100 Insulin lispro] 100 unit/mL solution 1 sliding scale dose SUBCUT USEASDIRECTD atorvastatin 40 mg tablet 40 mg PO DAILY furosemide [Lasix] 20 mg tablet 20 mg PO DAILY PRN (Reason: edema, wt gain) Qty: 30 11RF hydroxyzine HCl 50 mg tablet 50 mg PO BID oxcarbazepine 300 mg tablet 300 mg PO BID Rx Instructions: 300mg in the morning and 600mg at night polyethylene glycol 3350 [Miralax] 17 gram/dose powder 17 g PO DAILY Qty: 510 1RF alprazolam [Xanax] 1 mg tablet 1 mg PO BID PRN (Reason: anxiety) Qty: 3 0RF Referrals: Kevin Jaimes MD [Primary Care Provider] - Stand Alone Forms: Patient Portal/API
[2023-08-28] MEDS: HYDROMORPHONE 1 MG INJ IM (09:17)
== END 2023-08-28 09:32 | disposition home or self-care (01) ==
PROVIDERS: Emergency Provider Emergency Medicine; Family Provider Family Medicine; PCP Family Medicine
DX: M54.59 Other low back pain (principal); M79.605 Pain in left leg
CPT/HCPCS: 96372; 99283; J1170

== ENCOUNTER 2023-09-03 10:16 | Emergency (ER) | payer OTHER, MEDICAID, SELFPAY ==
[2023-09-03 10:21] VITALS: BP 168/91; PULSE 80; RESP 18; TEMP 37.1; O2SAT 99; BMI 45.7
--- NOTE | 2023-09-03 10:53 | ED.BACK ---
HPI - Back Pain/Injury General Chief Complaint: Back Pain/Injury Stated Complaint: lower back pain Time Seen by Provider: 09/03/23 10:44 Source: patient History of Present Illness HPI Narrative: Patient here with lead case manager, lead case manager driving. Patient complaints of exacerbation of chronic back pain. Patient has had back pain for many years. No previous surgery. Has had multiple episodes of physical therapy which she recently completed in the last month here. No bowel or bladder incontinence or retention. Pain radiates from left gluteus down to the left foot with numbness and tingling. Worse with lying flat and walking. Prefers to sit upright. Patient seen here 6 days ago for the same and given Dilaudid medication and prescription for hydrocodone which controlled the pain for short while. Patient just had MRI of the lumbar spine 7 days ago here. Ordered by her ortho spine provider. Patient in shorts. Shoes and socks removed [address] [address] Magnetic Resonance Report Signed Patient: Jamila Foster MR#: [id number] : 1975 Acct:[id number] Age/Sex: 47 / F Date of Service: 08/27/23 Loc: MRI Accession Number: [id number] Procedure: MR lumbar spine wo con Ordering Provider: Kelsey Reynolds P.A-C PROCEDURE: MR LUMBAR SPINE WO CON INDICATIONS: LOW BACK PAIN TECHNIQUE: Noncontrast sagittal T1 spin echo and T2 fast echo, sagittal STIR, and T2 fast spin echo through the lumbar spine. In cases with scoliosis, additional coronal T2 fast spin echo may be performed. COMPARISON: None. FINDINGS: Image quality: Excellent. Alignment and Curvature: There is normal bony alignment. Bone Marrow: Marrow is of normal overall signal. No acute vertebral body compression fractures. Spinal Cord: Conus medullaris terminates at the L1 level. Visualized cord demonstrates normal signal and size. Paraspinous Soft Tissues: No paravertebral masses. T12-L1: Normal appearance. L1-L2: Normal appearance. L2-L3: Normal appearance. L3-L4: Disc height is maintained. Hypertrophic facet joints. Mild central stenosis. L4-L5: Disc height is maintained. No disc bulge. Hypertrophic facet joints. No central or foraminal stenosis. L5-S1: Normal appearance. IMPRESSION: Mild facet arthropathy in the lower lumbar spine without significant central or foraminal stenosis throughout the exam Approved by: Atul Finley M.D. on 08/27/2023 at 18:07 Related Data Home Medications Medication Instructions Recorded Confirmed atorvastatin 40 mg tablet 40 mg PO DAILY 11/08/22 09/17/23 insulin glargine 100 unit/mL (3 40 unit SUBCUT QAM 11/08/22 09/17/23 mL) subcutaneous pen (Basaglar KwikPen U-100 Insulin) insulin lispro 100 unit/mL 1 sliding scale dose SUBCUT 11/08/22 09/17/23 subcutaneous solution (Admelog USEASDIRECTD U-100 Insulin lispro) hydroxyzine HCl 50 mg tablet 50 mg PO BID 11/22/22 09/17/23 oxcarbazepine 300 mg tablet 300 mg PO BID 11/22/22 09/17/23 lisinopril 10 mg tablet 10 mg PO DAILY 06/13/23 09/17/23 gabapentin 100 mg capsule 100 mg PO 3XD 09/10/23 09/17/23 metformin 500 mg tablet,extended 500 mg PO BID 09/10/23 09/17/23 release 24 hr Previous Rx's Medication Instructions Recorded polyethylene glycol 3350 17 17 g PO DAILY #510 grams 10/27/22 gram/dose oral powder (Miralax) aripiprazole 15 mg tablet (Abilify) 15 mg PO DAILY #30 tabs 11/15/22 pen needle, diabetic 32 gauge x #1,200 ea 11/20/22 (Aqinject Pen Needle) furosemide 20 mg tablet (Lasix) 20 mg PO DAILY PRN edema, wt gain 11/22/22 #30 tabs potassium chloride 10 mEq 10 meq PO DAILY PRN for edema #90 11/22/22 capsule,extended release caps meloxicam 15 mg tablet 15 mg PO DAILY PRN pain #30 tabs 12/07/22 methocarbamol 500 mg tablet 500 mg PO TID #30 tabs 12/07/22 trazodone 100 mg tablet 100 mg PO DAILY #90 tabs 12/07/22 valacyclovir 500 mg tablet 500 mg PO DAILY #90 tabs 12/07/22 lancets 28 gauge (FreeStyle #100 ea 01/25/23 Lancets) omeprazole 40 mg capsule,delayed 40 mg PO DAILY #90 caps 03/11/23 release alprazolam 1 mg tablet (Xanax) 1 mg PO BID PRN anxiety #3 tabs 03/19/23 hydrocodone 5 mg-acetaminophen 325 1 tab PO Q8H PRN pain #10 tabs 08/28/23 mg tablet fluconazole 150 mg tablet 150 mg PO DAILY #32 tabs 09/10/23 oxycodone-acetaminophen 5 mg-325 1 tab PO Q4-6H PRN pain #10 tabs 09/17/23 mg tablet (Percocet) Allergies Allergy/AdvReac Type Severity Reaction Status Date / Time semaglutide [From Ozempic] Allergy Severe gastroparal Verified 09/17/23 14:29 ysis topiramate [From TOPAMAX] Allergy Unknown Verified 09/17/23 14:29 bupropion [From Wellbutrin] Allergy Verified 09/17/23 14:29 cephalexin [From Keflex] Allergy Verified 09/17/23 14:29 Iodinated Contrast Media Allergy Verified 09/17/23 14:29 sulfamethoxazole Allergy Verified 09/17/23 14:29 [From Bactrim] trimethoprim [From Bactrim] Allergy Verified 09/17/23 14:29 Review of Systems Review of Systems Narrative: GENERAL: negative chills, fatigue, malaise, fever, sweats. HEENT: negative sinus pain, ear pain, sore throat RESPIRATORY: negative dyspnea, cough CARDIOVASCULAR: negative chest pain, palpitations GASTROINTESTINAL: negative nausea, vomiting, abdominal pain : negative dysuria, frequency, hematuria MUSCULOSKELETAL: Positive back, muscle or bony pain SKIN: negative rash, skin lesions NEUROLOGIC: negative weakness, positive numbness Patient History Medical History (Updated 09/18/23 @ 00:01 by ) MUSTAPHA (generalized anxiety disorder) Abnormal uterine bleeding (AUB) Chronic candidiasis of vulva and vagina JUDIT (obstructive sleep apnea) CAD (coronary artery disease) Mixed hyperlipidemia Tobacco dependence Type 2 diabetes mellitus with hyperglycemia, with long-term current use of insulin Bipolar 2 disorder Morbid obesity Surgical History Status post cholecystectomy Status post tubal ligation History of tonsillectomy Status post delivery Status post delivery Status post delivery Family History Father Heart disease Hypertension Heart attack Mother Mental health problem Hypertension Social History Smoking Status: Current every day smoker Smoking Status: Current every day smoker tobacco type: vaping alcohol intake frequency: other Substance Use Type: former substance user Exam Narrative Exam Narrative: GENERAL: in no distress, not toxic not dyspneic HEAD: Normocephalic. EYES: Pupils equal round BACK: No flank tenderness. There is reproducible left paralumbar muscle tenderness and spasm. Increased pain with straight leg raise in supine position at 30?. Steady self gait no ataxia, not antalgic. Able to do side bending left and right and leaned forward and back but does have pain in the left lower back. NEURO: AOx4. Strong bilateral patellar reflexes and light touch intact to foot and toes on the left. Wiggles toes. Steady gait no foot drop. Strong bilateral ankle flexion-extension. SKIN: Warm and dry PSYCH: Not anxious, is cooperative Initial Vital Signs Initial Vital Signs: Vital Signs Temperature 98.7 F 09/03/23 10:21 Pulse Rate 80 09/03/23 10:21 Respiratory Rate 18 09/03/23 10:21 Blood Pressure 168/91 H 09/03/23 10:21 Pulse Oximetry 99 09/03/23 10:21 Oxygen Delivery Method Room Air 09/03/23 10:21 Course Orders Ordered: Discontinued Medications Hydromorphone HCl (Hydromorphone 1 Mg Inj) 1 mg IM NOW ONE Stop: 09/03/23 10:54 Last Admin: 09/03/23 11:01 Dose: 1 mg Documented By: NNEKA Ondansetron HCl (Ondansetron 4 Mg Odt) 4 mg SL NOW ONE Stop: 09/03/23 10:54 Last Admin: 09/03/23 11:01 Dose: 4 mg Documented By: NNEKA Vital Signs Vital signs: Vital Signs - 8 hr 09/03/23 10:21 Temperature 98.7 F Pulse Rate 80 Respiratory Rate 18 Blood Pressure 168/91 H Pulse Oximetry 99 Oxygen Delivery Method Room Air MDM - Back Pain/Injury MDM Narrative Medical decision making narrative: Patient here with lead case manager, lead case manager driving. Patient complaints of exacerbation of chronic back pain. Patient has had back pain for many years. No previous surgery. Has had multiple episodes of physical therapy which she recently completed in the last month here. No bowel or bladder incontinence or retention. Pain radiates from left gluteus down to the left foot with numbness and tingling. Worse with lying flat and walking. Prefers to sit upright. Patient seen here 6 days ago for the same and given Dilaudid medication and prescription for hydrocodone which controlled the pain for short while. Patient just had MRI of the lumbar spine 7 days ago here. Ordered by her ortho spine provider. Patient in shorts. Shoes and socks removed After history and exam Dilaudid intramuscular Zofran, at this time no blood work or further imaging indicated. Patient is being follow up with ortho spine. Patient already had MRI, no fever or red flags. No incontinence or retention. [facility] Medical records reviewed: MRI from August 27, 2023, ER visit August 28, 2023 Differential considered: Includes but not limited to sciatica lumbar radiculopathy degenerative disc disease cauda equina Treatments: Dilaudid Zofran Re-evaluations: Reviewed with patient exam findings and MRI findings, agrees for short course of pain medication, her appointment with ortho spine is September 17 Discussion: Appropriate for discharge home exam is reassuring. MRI just done 7 days ago. No red flags on exam or history, no bowel or bladder continence retention. Likely not cauda equina. Diagnosis: Acute on chronic back pain, sciatica, lumbar radiculopathy Discharge Plan Departure Patient Disposition: Home Clinical Impression: Acute exacerbation of chronic low back pain, Sciatica Instructions: DI for Sciatica, DI for Lumbar Radiculopathy Activity Restrictions/Additional Instructions: No driving operating machinery. Please see your ortho spine provider September 17 as scheduled. Short course of pain medication has been provided for you. You may continue your other home medications. Return if worse if any questions concerns. Prescriptions: No Action lisinopril 10 mg tablet 10 mg PO DAILY aripiprazole [Abilify] 15 mg tablet 15 mg PO DAILY Qty: 30 11RF (DME) pen needle, diabetic [Aqinject Pen Needle] 32 gauge x /32 needle See Rx Instructions .Route Qty: 1200 3RF Rx Instructions: use to inject insulin 4-6 times a day as needed. potassium chloride 10 mEq capsule, extended release 10 meq PO DAILY PRN (Reason: for edema) Qty: 90 3RF (DME) lancets [FreeStyle Lancets] 28 gauge misc See Rx Instructions .Route Qty: 100 11RF Rx Instructions: use to check blood glucose three times a day. omeprazole 40 mg capsule,delayed release(DR/EC) 40 mg PO DAILY Qty: 90 3RF trazodone 100 mg tablet 100 mg PO DAILY Qty: 90 3RF valacyclovir 500 mg tablet 500 mg PO DAILY Qty: 90 3RF methocarbamol 500 mg tablet 500 mg PO TID Qty: 30 2RF meloxicam 15 mg tablet 15 mg PO DAILY PRN (Reason: pain) Qty: 30 11RF Rx Instructions: with food gabapentin 100 mg capsule 100 mg PO 3XD metformin 500 mg tablet extended release 24 hr 500 mg PO BID fluconazole 150 mg tablet 150 mg PO DAILY Qty: 32 0RF Rx Instructions: take one tablet by mouth daily for 7 days, then one tablet by mouth weekly for 6 months insulin glargine [Basaglar KwikPen U-100 Insulin] 100 unit/mL (3 mL) insulin pen 40 unit SUBCUT QAM insulin lispro [Admelog U-100 Insulin lispro] 100 unit/mL solution 1 sliding scale dose SUBCUT USEASDIRECTD atorvastatin 40 mg tablet 40 mg PO DAILY furosemide [Lasix] 20 mg tablet 20 mg PO DAILY PRN (Reason: edema, wt gain) Qty: 30 11RF hydroxyzine HCl 50 mg tablet 50 mg PO BID oxcarbazepine 300 mg tablet 300 mg PO BID Rx Instructions: 300mg in the morning and 600mg at night oxycodone-acetaminophen [Percocet] 5-325 mg tablet 1 tab PO Q4-6H PRN (Reason: pain) Qty: 10 0RF polyethylene glycol 3350 [Miralax] 17 gram/dose powder 17 g PO DAILY Qty: 510 1RF alprazolam [Xanax] 1 mg tablet 1 mg PO BID PRN (Reason: anxiety) Qty: 3 0RF hydrocodone-acetaminophen 5-325 mg tablet 1 tab PO Q8H PRN (Reason: pain) Qty: 10 0RF Referrals: Kevin Jaimes MD [Primary Care Provider] - Stand Alone Forms: Patient Portal/API
[2023-09-03] MEDS: ONDANSETRON 4 MG ODT SL (11:01)
[2023-09-03] MEDS: HYDROMORPHONE 1 MG INJ IM (11:01)
== END 2023-09-03 11:12 | disposition home or self-care (01) ==
PROVIDERS: Emergency Provider Emergency Medicine; Family Provider Family Medicine; PCP Family Medicine
DX: M54.42 Lumbago with sciatica, left side (principal)
CPT/HCPCS: 96372; 99283; J1170

== ENCOUNTER → 2023-09-05 12:44 | Outpatient (CLI) | payer OTHER, MEDICAID, SELFPAY | PROVIDERS: Family Provider Family Medicine; PCP Family Medicine; Referring Provider Internal Medicine Critical Care Medicine; Visit Provider Internal Medicine Critical Care Medicine | DX: R06.00 Dyspnea, unspecified (principal); F17.210 Nicotine dependence, cigarettes, uncomplicated; J84.9 Interstitial pulmonary disease, unspecified; I27.20 Pulmonary hypertension, unspecified | CPT/HCPCS: 94010; 94729 ==

== ENCOUNTER → 2023-09-18 13:10 | Outpatient (CLI) | payer OTHER, MEDICAID, SELFPAY ==
[2023-09-18 14:16] LABS: Hematocrit 36.2 % (36-46); Hemoglobin 12.2 g/dL (12.0-16.0); Mean Corpuscular HGB Conc 33.7 % (30-36); Mean Corpuscular Hemoglobin 28.6 PG (26-34); Mean Corpuscular Volume 84.7 fL (80-100); Platelet Count 288 X10^3/uL (150-400); Red Blood Cell Count 4.28 X10^6/uL (4.0-5.2); Red Cell Distribution Width 14.4 % (11.6-14.8); White Blood Cell Count 10.6 X10^3/uL (4.5-11.0)
[2023-09-18 14:22] LABS: Hemoglobin A1C% w Est Avg Glu 7.6 % (4.0-6.0)
[2023-09-18 14:37] LABS: Alanine Aminotransferase 20 IU/L (<35); Albumin 3.9 g/dL (3.5-5.0); Albumin Globulin Ratio 1.6 (1.0-2.8); Alkaline Phosphatase 82 U/L (38-126); Aspartate Aminotransferase 19 IU/L (14-36); BUN Creatinine Ratio 26.6 (6-22); Bilirubin Total 0.4 mg/dL (0.2-1.3); Blood Urea Nitrogen 21 mg/dL (7-17); Calcium 9.6 mg/dL (8.4-10.2); Carbon Dioxide 23 mmol/L (22-32); Chloride 104 mmol/L (98-107); Estimated Glomerular Filt Rate > 60 mL/min (>60); Globulin 2.4 g/dL (1.7-4.1); Glucose 119 mg/dL (70-100); HEMOLYSIS < 15 (0-50); Potassium 4.6 mmol/L (3.4-5.1); Sodium 137 mmol/L (137-145); Total Protein 6.3 g/dL (6.3-8.2)
[2023-09-18 15:04] LABS: TSH w/ Reflex to FT4 0.97 uIU/mL (0.47-4.68)
== END ==
PROVIDERS: Family Provider Family Medicine; PCP Family Medicine; Referring Provider Family Medicine; Visit Provider Family Medicine
DX: E11.65 Type 2 diabetes mellitus with hyperglycemia (principal); F31.81 Bipolar II disorder; E66.01 Morbid (severe) obesity due to excess calories; F17.200 Nicotine dependence, unspecified, uncomplicated; Z79.4 Long term (current) use of insulin
CPT/HCPCS: 36415; 80053; 83036; 84443; 85027

== ENCOUNTER 2023-09-27 08:14 | Day surgery (SDC) | payer OTHER, MEDICAID, SELFPAY ==
[2023-09-20 09:16] VITALS: BMI 45.3
[2023-09-27] VITALS (8 sets, daily range): BP systolic 114–152; BP diastolic 79–104; PULSE 68–93; RESP 12–18; TEMP 36.1–36.8; O2SAT 98–100; BMI 45.3
[2023-09-27] MEDS: LACTATED RINGERS 1,000 ML 42 ML IV (08:59)
--- NOTE | 2023-09-27 09:39 | PM.PREOP ---
Pre-operative Note Interval Note History & Physical reviewed/Exam performed by Physician: Yes Changes to H&P: No H&P completed within 30 days and has changed as indicated here:: 09/10/23
--- NOTE | 2023-09-27 10:29 | SUR.OPER ---
Lithotomy on padded OR bed, head on pillow, arms secured on padded arm boards at <90 degrees abduction. Legs secured in padded yellow fins stirrups.
[2023-09-27] MEDS: OXYCODONE IR 5 MG TABLET PO ×2 (12:15→12:41)
--- NOTE | 2023-09-27 13:22 | P.OP_ITS ---
Operative Date/Time/Diagnoses Date of procedure: 09/27/23 Time of procedure: 10:30 Pre-op diagnosis: AUB Post-op diagnosis: same (AUB-polyp) Procedure & Clinicians Procedure: Hysteroscopy Same procedure as scheduled: No (unable to perform polypectomy, placement of IUD ) Indications: AUB Surgeon: Freya Le Therapy Director: Dawna Brock Anesthesia Type: General Operative Notes Findings: normal external female genitalia, urethra vagina grossly wnl, visualization of cervix severely limited secondary to anterior retraction behind pubic bone with L lateralization secondary to prior visualization of fundal endometrial polyp, unable to resect Closure Type: not applicable Specimen(s): none sent Estimated Blood Loss (mL): 5 Procedure in detail: Pt was taken to the operating room, transferred to OR table and anesthesia was induced with placement of ETT.? Pt had her legs placed in Francisco stirrups and an exam under anesthesia was performed. The patient was prepped and draped in a sterile fashion.? A time out was performed. ?The bladder was emptied via straight catheter in sterile fashion.? A sterile speculum was inserted into the vagina.? The cervix was unable to be visualized using either the operative or graves speculum secondary to severe anterior retraction behind the pubic symphysis with lateralization to L, external os almost completely flush with vaginal apex. The speculum was removed and visualization was attemped with use of the large weighted speculum in tandem with sidewall retractors as well as anterior retraction of the bladder with navarteel. The posterior cervix was grasped using the single tooth tenaculum after which the uterus was sounded to 10cm and the cervical os was serially dilated using Granados dilators up to 17f to allow for passage of the hysteroscope.? The 5mm 30 degree hysteroscope was then inserted into the uterus with findings as noted.? The hysteroscope was removed for placement of myosure resection arm as severe flexion of the uterus made this exchange impossible while still inside the intrauterine cavity. Following assembly of equipment the single tooth tenaculum previously on the posterior cervix avulsed and visualization of the cervix was lost. Repeated attempts at visualization were unsuccessful and Dr. Dawna Brock was called to OR to assist give severe distortion of anatomy. Repeated attempts per both Dr. Brock and myself were unsuccessful including vaginoscopy with visually guided systematic inspection of vaginal apex however only prior false tract rather than true external cervical os could be identified. Given duration of procedure at this time (>60min) and increasing fluid deficit decision made to end further attempts at hysteroscopic resection of previously visualized polyp. Unable to perform endometrial currettings or complete placement of levonorgesterol intrauterine device secondary to inadequate visualization in setting of severe anatomical distortion. The vagina was thorgoughly visually inspected and hemostasis was noted. The patient was extubated and had her legs taken out of stirrups.? The patient tolerated the procedure well and without difficulty.? The patient was awakened from anesthesia and taken to PACU in stable condition. Complications: other (Unable to complete polypectomy or placement of LNG-IUD as scheduled due to distorted anatomy ) Post-operative Condition: stable Disposition: PACU
== END 2023-09-27 13:26 | disposition home or self-care (01) ==
PROVIDERS: Family Provider Family Medicine; PCP Family Medicine; Referring Provider Obstetrics & Gynecology; Visit Provider Obstetrics & Gynecology
PROC: 0UDB8ZZ Extraction of Endometrium, Via Natural or Artificial Opening Endoscopic (ICD-10-PCS; CPT 58558; principal; 2023-09-27 09:45)
DX: N93.9 Abnormal uterine and vaginal bleeding, unspecified (principal); N84.0 Polyp of corpus uteri
CPT/HCPCS: 58555; 82962; J0330; J1885; J2405; J2704; J3010

== ENCOUNTER 2023-09-28 05:46 | Emergency (ER) | payer OTHER, MEDICAID, SELFPAY ==
--- NOTE | 2023-09-28 05:52 | ED.FEVER ---
HPI - Fever General Chief Complaint: Fever Stated Complaint: had surgery yesterday, running a fever Time Seen by Provider: 09/28/23 05:47 History of Present Illness HPI Narrative: 48-year old female with past medical history of diabetes, bipolar disease, coronary disease, tobacco dependence presents by private vehicle from home for fever evaluation. Patient underwent sole trimmer procedure yesterday at [facility]. She was scheduled to have a polypectomy and placement of IUD, however due to anatomy the procedure was unable to be completed. Patient was subsequently discharged home. Patient states that in the middle of the night she woke up feeling poorly. Using a thermo gun thermometer she measured her temperature multiple times. Her temperature was variable, ranging between 99 and 102 F. patient called the on-call OBGYN, who told her to come to the emergency department for evaluation. No antipyretics taken prior to arrival. Patient states that her pelvic region feels ?fine?, she states that she feels poorly in the upper half of her body. Denies cough, shortness of breath, nausea, vomiting Related Data Home Medications Medication Instructions Recorded Confirmed atorvastatin 40 mg tablet 40 mg PO DAILY 11/08/22 09/27/23 insulin lispro 100 unit/mL 1 sliding scale dose SUBCUT 11/08/22 09/27/23 subcutaneous solution (Admelog USEASDIRECTD U-100 Insulin lispro) oxcarbazepine 300 mg tablet 300 mg PO BID 11/22/22 09/27/23 gabapentin 100 mg capsule 100 mg PO 3XD 09/10/23 09/27/23 metformin 500 mg tablet,extended 500 mg PO BID 09/10/23 09/27/23 release 24 hr polyethylene glycol 3350 17 17 g PO PRN PRN Constipation 09/27/23 gram/dose oral powder (Miralax) Previous Rx's Medication Instructions Recorded aripiprazole 15 mg tablet (Abilify) 15 mg PO DAILY #30 tabs 11/15/22 pen needle, diabetic 32 gauge x #1,200 ea 11/20/22 (Aqinject Pen Needle) furosemide 20 mg tablet (Lasix) 20 mg PO DAILY PRN edema, wt gain 11/22/22 #30 tabs potassium chloride 10 mEq 10 meq PO DAILY PRN for edema #90 11/22/22 capsule,extended release caps methocarbamol 500 mg tablet 500 mg PO TID #30 tabs 10/13/23 trazodone 100 mg tablet 100 mg PO DAILY #90 tabs 12/07/22 valacyclovir 500 mg tablet 500 mg PO DAILY #90 tabs 12/07/22 lancets 28 gauge (FreeStyle #100 ea 01/25/23 Lancets) omeprazole 40 mg capsule,delayed 40 mg PO DAILY #90 caps 03/11/23 release alprazolam 1 mg tablet (Xanax) 1 mg PO BID PRN anxiety #3 tabs 03/19/23 fluconazole 150 mg tablet 150 mg PO DAILY #32 tabs 09/10/23 lisinopril 10 mg tablet 10 mg PO DAILY #90 tabs 09/19/23 norethindrone (contraceptive) 0.35 0.35 mg PO DAILY #84 tabs 09/27/23 mg tablet Allergies Allergy/AdvReac Type Severity Reaction Status Date / Time semaglutide [From Ozempic] Allergy Severe gastroparal Verified 09/27/23 08:32 ysis topiramate [From TOPAMAX] Allergy Unknown Confusion Verified 09/27/23 08:32 bupropion [From Wellbutrin] Allergy Confusion Verified 09/27/23 08:32 cephalexin [From Keflex] Allergy ITCHING Verified 09/27/23 08:32 Iodinated Contrast Media Allergy Vomiting Verified 09/27/23 08:32 sulfamethoxazole Allergy Swelling Verified 09/27/23 08:32 [From Bactrim] of Lip/Tongue/Throat trimethoprim [From Bactrim] Allergy Swelling Verified 09/27/23 08:32 of Lip/Tongue/Throat Patient History Medical History Presence of insulin pump MUSTAPHA (generalized anxiety disorder) Abnormal uterine bleeding (AUB) Chronic candidiasis of vulva and vagina JUDIT (obstructive sleep apnea) CAD (coronary artery disease) Mixed hyperlipidemia Tobacco dependence Type 2 diabetes mellitus with hyperglycemia, with long-term current use of insulin Bipolar 2 disorder Morbid obesity Surgical History Status post cholecystectomy Status post tubal ligation History of tonsillectomy Status post delivery Status post delivery Status post delivery Family History Father Heart disease Hypertension Heart attack Mother Mental health problem Hypertension Social History household members: family Smoking Status: Current every day smoker alcohol intake: never Smoking Status: Current every day smoker tobacco type: vaping alcohol intake frequency: other Substance Use Type: former substance user Exam Initial Vital Signs Initial Vital Signs: Vital Signs Temperature 99.3 F 09/28/23 05:54 Pulse Rate 119 H 09/28/23 05:54 Respiratory Rate 20 09/28/23 05:54 Blood Pressure 157/92 H 09/28/23 05:54 Pulse Oximetry 97 09/28/23 05:54 Oxygen Delivery Method Room Air 09/28/23 05:54 Const: Awake, alert, no acute distress Cardiac: Tachycardia, regular rhythm RESP: unlabored, clear bilaterally, no wheezing GI: Soft, nontender, nondistended, no rebound, no guarding Skin: Warm, Dry, intact, no rashes Neuro: AO x3, CN II-XII grossly intact, moves all extremities Course Orders Ordered: ED Orders 09/28/23 06:00 CBC Auto Diff [Complete Blood Count AUTO DIFF] Stat CMP [Comprehensive Metabolic Panel] Stat Respiratory Panel (Film Array) Stat 09/28/23 06:05 UA Complete [Urinalysis and Microscopic] Stat 09/28/23 07:00 Chest [XR chest 1V] Stat Vital Signs Vital signs: Vital Signs - 8 hr 09/28/23 05:54 09/28/23 06:30 Temperature 99.3 F Pulse Rate 119 H 106 H Respiratory Rate 20 16 Blood Pressure 157/92 H 126/58 L Pulse Oximetry 97 95 Oxygen Delivery Method Room Air Room Air MDM - Fever Lab Data 09/28/23 06:00 09/28/23 06:00 Labs: Lab Results 09/28/23 09/28/23 Range/Units 06:00 06:05 WBC 9.3 (4.5-11.0) X10^3/uL RBC 4.04 (4.0-5.2) X10^6/uL Hgb 11.9 L (12.0-16.0) g/dL Hct 34.5 L (36-46) % MCV 85.6 (80-100) fL MCH 29.6 (26-34) PG MCHC 34.5 (30-36) % RDW 14.6 (11.6-14.8) % Plt Count 236 (150-400) X10^3/uL Neut % (Auto) 74.8 (50-75) % Lymph % (Auto) 14.0 L (25-40) % [place] % (Auto) 9.5 (3-14) % Eos % (Auto) 1.2 L (2-4) % Baso % (Auto) 0.5 (0-2) % Neut # (Auto) 6900 (3908-6484) /uL Lymph # (Auto) 1300 (9635-0027) /uL [place] # (Auto) 900 (0-900) /uL Eos # (Auto) 100 (0-450) /uL Baso # (Auto) 0 (0-100) /uL Sodium 136 L (137-145) mmol/L Potassium 4.2 (3.4-5.1) mmol/L Chloride 107 (98-107) mmol/L Carbon Dioxide 19 L (22-32) mmol/L BUN 15 (7-17) mg/dL Creatinine 0.64 (0.52-1.04) mg/dL Estimated GFR > 60 (>60) mL/min BUN/Creatinine Ratio 23.4 H (6-22) Glucose 206 H (70-100) mg/dL Calcium 8.5 (8.4-10.2) mg/dL Total Bilirubin 0.4 (0.2-1.3) mg/dL AST 21 (14-36) IU/L ALT 22 (<35) IU/L Alkaline Phosphatase 102 (38-126) U/L Total Protein 6.4 (6.3-8.2) g/dL Albumin 3.8 (3.5-5.0) g/dL Globulin 2.6 (1.7-4.1) g/dL Albumin/Globulin Ratio 1.5 (1.0-2.8) Urine Color Yellow Urine Appearance Clear Urine pH 6.0 (4.5-8.0) Ur Specific [place] 1.025 (1.000-1.035) Urine Protein Negative (Negative) Urine Glucose (UA) 1+ H (Negative) g/dL Urine Ketones Trace H (NEGATIVE) Urine Occult Blood Trace-intact (Negative) Urine Nitrate Negative (Negative) Urine Bilirubin Negative (NEGATIVE) Urine Urobilinogen 2.0 H (0.2) E.U./dL Ur Leukocyte Esterase Trace H (NEGATIVE) Urine RBC 0-1/hpf (0-5/HPF) Urine WBC 5-10/hpf H (0-5/HPF) Ur Squamous Epith Cells 10-30 /hpf H D (0-5/HPF) Urine Bacteria Occasional (0-1) (None) Ur Culture Indicated? Cult not indicated Vol Urine Centrifuged 10ml (spun) Chlamy pneumoniae PCR Not detected (Not Detect) Adenovirus (PCR) Not detected (Not Detect) B.parapertussis DNA PCR Not detected (Not Detecte) Coronavirus OC43 (PCR) Not detected (Not Detect) Coronavirus HKU1 (PCR) Not detected (Not Detect) Coronavirus 229E (PCR) Not detected (Not Detect) SARS-CoV-2 (PCR) Not detected (Not Detecte) Coronavirus NL63 (PCR) Not detected (Not Detect) Human Metapneumovir PCR Not detected (Not Detect) Influenza Type A (PCR) Not detected (Not Detect) Influenza Type B (PCR) Not detected (Not Detect) M. pneumoniae (PCR) Not detected (Not Detect) Parainfluenza 1 (PCR) Not detected (Not Detect) Parainfluenza 2 (PCR) Not detected (Not Detect) Parainfluenza 3 (PCR) Not detected (Not Detect) Parainfluenza 4 (PCR) Not detected (Not Detect) RSV (PCR) Not detected (Not Detect) Entero/Rhino (PCR) Not detected (Not Detect) Imaging Data Chest x-ray: Radiologist's Impression: PROCEDURE: XR CHEST 1V INDICATIONS: fever oostop TECHNIQUE: One view of the chest was acquired. COMPARISON: [facility], CHEST 2 VIEW, 07/13/2015, 11:54. FINDINGS: Surgical changes and devices: None. Lungs and pleura: Lungs are clear. No pleural effusions or pneumothorax. Mediastinum: Mediastinal contours appear normal. Heart size is normal. Bones and chest wall: No suspicious bony lesions. Overlying soft tissues appear unremarkable. IMPRESSION: No acute cardiopulmonary abnormality is seen. Dictated by: Vini Harris M.D. on 09/28/2023 at 7:37 Approved by: Vini Harris M.D. on 09/28/2023 at 7:38 MDM Narrative Medical decision making narrative: Well-appearing patient with 1 day of reported fevers at home. No antipyretics taken prior to arrival, patient afebrile in the emergency department. Physical exam is unremarkable. Patient had procedure done yesterday and her symptoms seem to be upper respiratory in nature. She states that her lower abdomen it was not painful, she has had no burning with urination, no unusual discharge. Laboratory work unremarkable. Chest x-ray negative for acute findings. No evidence of UTI on urinalysis. Discussed case with Dr. Le, who is comfortable having patient go home with close return precautions. Labs and imaging discussed with the patient at bedside. Patient counseled on supportive care measures at home. Discharge Plan Departure Patient Disposition: Home Clinical Impression: Malaise Instructions: DI for Fever (Symptom) -- Adult Activity Restrictions/Additional Instructions: Your laboratory work today appears normal. You do not appear to have any sign of infection on your lab work or imaging. Follow up as needed with your OBGYN and your primary care doctor. Prescriptions: No Action aripiprazole [Abilify] 15 mg tablet 15 mg PO DAILY Qty: 30 11RF (DME) pen needle, diabetic [Aqinject Pen Needle] 32 gauge x 5/32 needle See Rx Instructions .Route Qty: 1200 3RF Rx Instructions: use to inject insulin 4-6 times a day as needed. potassium chloride 10 mEq capsule, extended release 10 meq PO DAILY PRN (Reason: for edema) Qty: 90 3RF (DME) lancets [FreeStyle Lancets] 28 gauge misc See Rx Instructions .Route Qty: 100 11RF Rx Instructions: use to check blood glucose three times a day. omeprazole 40 mg capsule,delayed release(DR/EC) 40 mg PO DAILY Qty: 90 3RF lisinopril 10 mg tablet 10 mg PO DAILY Qty: 90 3RF trazodone 100 mg tablet 100 mg PO DAILY Qty: 90 3RF valacyclovir 500 mg tablet 500 mg PO DAILY Qty: 90 3RF methocarbamol 500 mg tablet 500 mg PO TID Qty: 30 2RF gabapentin 100 mg capsule 100 mg PO 3XD metformin 500 mg tablet extended release 24 hr 500 mg PO BID fluconazole 150 mg tablet 150 mg PO DAILY Qty: 32 0RF Rx Instructions: take one tablet by mouth daily for 7 days, then one tablet by mouth weekly for 6 months insulin lispro [Admelog U-100 Insulin lispro] 100 unit/mL solution 1 sliding scale dose SUBCUT USEASDIRECTD Patient Comments: insulin pump-pt removed pump at 0830 atorvastatin 40 mg tablet 40 mg PO DAILY furosemide [Lasix] 20 mg tablet 20 mg PO DAILY PRN (Reason: edema, wt gain) Qty: 30 11RF oxcarbazepine 300 mg tablet 300 mg PO BID Rx Instructions: 300mg in the morning and 600mg at night alprazolam [Xanax] 1 mg tablet 1 mg PO BID PRN (Reason: anxiety) Qty: 3 0RF polyethylene glycol 3350 [Miralax] 17 gram/dose powder 17 g PO PRN PRN (Reason: Constipation) norethindrone (contraceptive) 0.35 mg tablet 0.35 mg PO DAILY Qty: 84 0RF Referrals: Lilliana Gallagher DO [Primary Care Provider] - Stand Alone Forms: Patient Portal/API
[2023-09-28 05:54] VITALS: BP 157/92; PULSE 119; RESP 20; TEMP 37.4; O2SAT 97; BMI 44.9
[2023-09-28 06:10] LABS: Add Manual Diff / Slide Review NO; Basophils Absolute Auto 0 /uL (0-100); Basophils Percent Auto 0.5 % (0-2); Eosinophils Absolute Auto 100 /uL (0-450); Eosinophils Percent Auto 1.2 % (2-4); Hematocrit 34.5 % (36-46); Hemoglobin 11.9 g/dL (12.0-16.0); Lymphocytes Absolute Auto 1300 /uL (1100-4500); Mean Corpuscular HGB Conc 34.5 % (30-36); Mean Corpuscular Hemoglobin 29.6 PG (26-34); Mean Corpuscular Volume 85.6 fL (80-100); Monocytes Absolute Auto 900 /uL (0-900); Monocytes Percent Auto 9.5 % (3-14); Neutrophils Absolute Auto 6900 /uL (1500-7000); Neutrophils Percent Auto 74.8 % (50-75); Platelet Count 236 X10^3/uL (150-400); Red Blood Cell Count 4.04 X10^6/uL (4.0-5.2); Red Cell Distribution Width 14.6 % (11.6-14.8); White Blood Cell Count 9.3 X10^3/uL (4.5-11.0)
[2023-09-28 06:10] LABS: Appearance Urine UA CLEAR; Bilirubin Urine UA NEGATIVE (NEGATIVE); Color Urine UA YELLOW; Glucose Urine UA 1+ g/dL (Negative); Ketones Urine UA TRACE (NEGATIVE); Leukocyte Esterase Urine UA TRACE (NEGATIVE); Nitrite Urine UA NEGATIVE (Negative); Occult Blood Urine UA TRACE-INTACT (Negative); Protein Urine UA NEGATIVE (Negative); Specific Gravity Urine UA 1.025 (1.000-1.035)
[2023-09-28 06:28] LABS: Alanine Aminotransferase 22 IU/L (<35); Albumin 3.8 g/dL (3.5-5.0); Albumin Globulin Ratio 1.5 (1.0-2.8); Alkaline Phosphatase 102 U/L (38-126); Aspartate Aminotransferase 21 IU/L (14-36); BUN Creatinine Ratio 23.4 (6-22); Bilirubin Total 0.4 mg/dL (0.2-1.3); Blood Urea Nitrogen 15 mg/dL (7-17); Calcium 8.5 mg/dL (8.4-10.2); Carbon Dioxide 19 mmol/L (22-32); Chloride 107 mmol/L (98-107); Estimated Glomerular Filt Rate > 60 mL/min (>60); Globulin 2.6 g/dL (1.7-4.1); Glucose 206 mg/dL (70-100); HEMOLYSIS < 15 (0-50); Potassium 4.2 mmol/L (3.4-5.1); Sodium 136 mmol/L (137-145); Total Protein 6.4 g/dL (6.3-8.2)
[2023-09-28 06:30] VITALS: BP 126/58; PULSE 106; RESP 16; O2SAT 95
[2023-09-28 06:37] LABS: Bacteria Urine Occasional (0-1); Culture Indicated Urine Cult Not Indicated; RBC Urine 0-1/HPF (0-5/HPF); Squamous Epithelial Cell Urine 10-30 /HPF (0-5/HPF); Urine Volume 10mL (spun); WBC Urine 5-10/HPF (0-5/HPF)
[2023-09-28 06:57] LABS: Adenovirus Not Detected (Not Detect); B. parapertussis Not Detected (Not Detecte); Bordetella pertussis Not Detected (Not Detect); Chlamydophila pneumoniae Not Detected (Not Detect); Coronavirus 229E Not Detected (Not Detect); Coronavirus HKU1 Not Detected (Not Detect); Coronavirus NL 63 Not Detected (Not Detect); Coronavirus OC43 Not Detected (Not Detect); Human Metapneumovirus Not Detected (Not Detect); Human Rhinovirus/Enterovirus Not Detected (Not Detect); Influenza A Not Detected (Not Detect); Influenza B Not Detected (Not Detect); Mycoplasma pneumoniae Not Detected (Not Detect); Parainfluenza Virus 1 Not Detected (Not Detect); Parainfluenza Virus 2 Not Detected (Not Detect); Parainfluenza Virus 3 Not Detected (Not Detect); Parainfluenza Virus 4 Not Detected (Not Detect); Respiratory Syncytial Virus Not Detected (Not Detect); SARS- CoV-2 Not Detected (Not Detecte)
--- NOTE | 2023-09-28 07:00 | DI.RAD.S_ITS ---
PROCEDURE: XR CHEST 1V INDICATIONS: fever oostop TECHNIQUE: One view of the chest was acquired. COMPARISON: [facility], , CHEST 2 VIEW, 07/13/2015, 11:54. FINDINGS: Surgical changes and devices: None. Lungs and pleura: Lungs are clear. No pleural effusions or pneumothorax. Mediastinum: Mediastinal contours appear normal. Heart size is normal. Bones and chest wall: No suspicious bony lesions. Overlying soft tissues appear unremarkable. IMPRESSION: No acute cardiopulmonary abnormality is seen. Dictated by: Vini Harris M.D. on 09/28/2023 at 7:37 Approved by: Vini Harris M.D. on 09/28/2023 at 7:38
[2023-09-28 07:53] VITALS: BP 117/77; PULSE 90; RESP 18; O2SAT 97
== END 2023-09-28 07:54 | disposition home or self-care (01) ==
PROVIDERS: Emergency Provider Emergency Medicine; Family Provider Family Medicine; PCP Family Medicine
DX: R53.81 Other malaise (principal); R50.9 Fever, unspecified
CPT/HCPCS: 36415; 71045; 80053; 81001; 85025; 87633; 99283; 99284

== ENCOUNTER 2023-10-10 11:35 | Emergency (ER) | payer OTHER, MEDICAID, SELFPAY ==
[2023-10-10] VITALS (10 sets, daily range): BP systolic 110–133; BP diastolic 66–84; PULSE 93–111; RESP 14–26; TEMP 37.1; O2SAT 96–99; BMI 44.0
--- NOTE | 2023-10-10 12:24 | ED_ITS ---
HPI - General Adult General Chief complaint: Weakness Stated complaint: high BS uncontrolled, tired, puffiness Time Seen by Provider: 10/10/23 11:51 Source: patient Mode of arrival: Ambulatory History of Present Illness HPI narrative: Patient is a 48-year-old female. She was an insulin-dependent diabetic. She states that within the past week she took herself off of her insulin pump. She states that she thinks that it was ?making the fat? since that time she has been doing fast acting insulin at home although she states she was having a hard time controlling her blood sugars. Last night she found her prescription for the long-acting insulin. She normally takes 40 units at night but she took 20 units last night and 10 units this morning. Blood sugars still are above 200. She also states this morning she felt like her bones were aching. She was very tired and feeling ?puffy? Related Data Home Medications Medication Instructions Recorded Confirmed atorvastatin 40 mg tablet 40 mg PO DAILY 11/08/22 09/30/23 insulin lispro 100 unit/mL 1 sliding scale dose SUBCUT 11/08/22 09/30/23 subcutaneous solution (Admelog USEASDIRECTD U-100 Insulin lispro) oxcarbazepine 300 mg tablet 300 mg PO BID 11/22/22 09/30/23 polyethylene glycol 3350 17 17 g PO PRN PRN Constipation 09/27/23 09/30/23 gram/dose oral powder (Miralax) atomoxetine 25 mg capsule 25 mg PO DAILY 09/30/23 09/30/23 finasteride 5 mg tablet 2.5 mg PO DAILY 09/30/23 09/30/23 metformin 750 mg tablet,extended mg PO 09/30/23 09/30/23 release 24 hr sitagliptin phosphate 50 mg tablet 50 mg PO DAILY 09/30/23 09/30/23 (Januvia) Previous Rx's Medication Instructions Recorded aripiprazole 15 mg tablet (Abilify) 15 mg PO DAILY #30 tabs 11/15/22 pen needle, diabetic 32 gauge x #1,200 ea 11/20/22 (Aqinject Pen Needle) furosemide 20 mg tablet (Lasix) 20 mg PO DAILY PRN edema, wt gain 11/22/22 #30 tabs potassium chloride 10 mEq 10 meq PO DAILY PRN for edema #90 11/22/22 capsule,extended release caps methocarbamol 500 mg tablet 500 mg PO TID #30 tabs 12/07/22 trazodone 100 mg tablet 100 mg PO DAILY #90 tabs 12/07/22 valacyclovir 500 mg tablet 500 mg PO DAILY #90 tabs 12/07/22 lancets 28 gauge (FreeStyle #100 ea 01/25/23 Lancets) omeprazole 40 mg capsule,delayed 40 mg PO DAILY #90 caps 03/11/23 release lisinopril 10 mg tablet 10 mg PO DAILY #90 tabs 09/19/23 norethindrone (contraceptive) 0.35 0.35 mg PO DAILY #84 tabs 09/27/23 mg tablet alprazolam 1 mg tablet (Xanax) 1 mg PO BID PRN anxiety #60 tabs 09/30/23 Allergies Allergy/AdvReac Type Severity Reaction Status Date / Time semaglutide [From Ozempic] Allergy Severe gastroparal Verified 09/30/23 10:51 ysis topiramate [From TOPAMAX] Allergy Unknown Confusion Verified 09/30/23 10:51 bupropion [From Wellbutrin] Allergy Confusion Verified 09/30/23 10:51 cephalexin [From Keflex] Allergy ITCHING Verified 09/30/23 10:51 Iodinated Contrast Media Allergy Vomiting Verified 09/30/23 10:51 sulfamethoxazole Allergy Swelling Verified 09/30/23 10:51 [From Bactrim] of Lip/Tongue/Throat trimethoprim [From Bactrim] Allergy Swelling Verified 09/30/23 10:51 of Lip/Tongue/Throat Review of Systems Review of Systems ROS Unobtainable: All systems reviewed & are unremarkable except as noted in HPI and below Patient History Medical History Presence of insulin pump MUSTAPHA (generalized anxiety disorder) Abnormal uterine bleeding (AUB) Chronic candidiasis of vulva and vagina JUDIT (obstructive sleep apnea) CAD (coronary artery disease) Mixed hyperlipidemia Tobacco dependence Type 2 diabetes mellitus with hyperglycemia, with long-term current use of insulin Bipolar 2 disorder Morbid obesity Surgical History Status post cholecystectomy Status post tubal ligation History of tonsillectomy Status post delivery Status post delivery Status post delivery Family History Father Heart disease Hypertension Heart attack Mother Mental health problem Hypertension Social History household members: family Smoking Status: Current every day smoker alcohol intake: never Smoking Status: Current every day smoker tobacco type: vaping alcohol intake frequency: other Substance Use Type: former substance user Exam Initial Vital Signs Initial Vital Signs: Vital Signs Temperature 98.7 F 10/10/23 11:41 Pulse Rate 111 H 10/10/23 11:41 Respiratory Rate 16 10/10/23 11:41 Blood Pressure 127/78 10/10/23 11:41 Pulse Oximetry 99 10/10/23 11:41 Oxygen Delivery Method Room Air 10/10/23 11:41 Const General: cooperative, comfortable and No ill appearing HENMT Head: normal to inspection and normocephalic Resp Effort & Inspection: normal respiratory effort Auscultation: clear to auscultation bilaterally Cardio Rate: tachycardic Rhythm: regular rhythm GI Inspection: normal to inspection Skin General: no rashes or lesions noted Neuro General: patient alert, patient awake and moves all extremities Extrem General: capillary refill normal Course Orders Ordered: ED Orders 10/10/23 12:40 Complete Blood Count AUTO DIFF Stat Comprehensive Metabolic Panel Stat Ketones (Beta-Hydroxybutyrate) Stat Lipase Stat Magnesium Stat Phosphorous Stat 10/10/23 13:36 VBG [Venous Blood Gas] STAT 10/10/23 14:01 Venous Blood Gas Routine Discontinued Medications Sodium Chloride (Normal Saline 0.9%) 1,000 mls @ 1,000 mls/hr IV BOLUS ONE Stop: 10/10/23 12:51 Last Infusion: 10/10/23 13:18 Dose: Infused Documented By: Admin: 10/10/23 13:00 Dose: 1,000 mls/hr Documented By: YESENIA Vital Signs Vital signs: Vital Signs - 8 hr 10/10/23 11:41 10/10/23 11:51 10/10/23 11:52 Temperature 98.7 F Pulse Rate 111 H 109 H Respiratory Rate 16 Blood Pressure 127/78 133/84 Pulse Oximetry 99 Oxygen Delivery Method Room Air 10/10/23 12:00 10/10/23 12:00 08/15/24 12:30 Temperature Pulse Rate 104 H 111 H Respiratory Rate 14 21 Blood Pressure 129/78 Pulse Oximetry Oxygen Delivery Method 10/10/23 12:45 10/10/23 12:45 10/10/23 13:00 Temperature Pulse Rate 104 H 100 H Respiratory Rate 19 26 H Blood Pressure 131/77 Pulse Oximetry 96 97 Oxygen Delivery Method 10/10/23 13:00 Temperature Pulse Rate Respiratory Rate Blood Pressure 117/69 Pulse Oximetry Oxygen Delivery Method Medical Decision Making Lab Data 10/10/23 12:40 10/10/23 12:40 Labs: Lab Results 10/10/23 10/10/23 Range/Units 12:40 14:01 WBC 10.1 (4.5-11.0) X10^3/uL RBC 4.39 (4.0-5.2) X10^6/uL Hgb 12.9 (12.0-16.0) g/dL Hct 37.5 (36-46) % MCV 85.4 (80-100) fL MCH 29.3 (26-34) PG MCHC 34.4 (30-36) % RDW 13.9 (11.6-14.8) % Plt Count 288 (150-400) X10^3/uL Neut % (Auto) 72.1 (50-75) % Lymph % (Auto) 18.4 L (25-40) % [place] % (Auto) 7.1 (3-14) % Eos % (Auto) 1.1 L (2-4) % Baso % (Auto) 1.3 (0-2) % Neut # (Auto) 7300 H (9073-0813) /uL Lymph # (Auto) 1800 (4097-5485) /uL [place] # (Auto) 700 (0-900) /uL Eos # (Auto) 100 (0-450) /uL Baso # (Auto) 100 (0-100) /uL VBG pH 7.40 (7.33-7.43) VBG pCO2 38.9 L (45-50) mmHg VBG pO2 44 (35-45) mmHg VBG HCO3 24 (24-28) mmol/L VBG Total CO2 24 (24-29) mmol/L VBG O2 Saturation 79 H (70-75) % VBG Base Excess -0.8 L (0-4) mmol/L Sodium 133 L (137-145) mmol/L Potassium 4.8 (3.4-5.1) mmol/L Chloride 103 (98-107) mmol/L Carbon Dioxide 17 L (22-32) mmol/L BUN 17 (7-17) mg/dL Creatinine 0.75 (0.52-1.04) mg/dL Estimated GFR > 60 (>60) mL/min BUN/Creatinine Ratio 22.7 H (6-22) Glucose 201 H (70-100) mg/dL Calcium 9.4 (8.4-10.2) mg/dL Phosphorus 3.1 (2.5-4.5) mg/dL Magnesium 1.7 (1.6-2.3) mg/dL Total Bilirubin 0.6 (0.2-1.3) mg/dL AST 44 H (14-36) IU/L ALT 26 (<35) IU/L Alkaline Phosphatase 101 (38-126) U/L Total Protein 7.5 (6.3-8.2) g/dL Albumin 4.5 (3.5-5.0) g/dL Globulin 3.0 (1.7-4.1) g/dL Albumin/Globulin Ratio 1.5 (1.0-2.8) Lipase 70 (23-300) U/L Point of Care Testing Glucose POC 151 Point of care testing: Point of Care Testing Glucose POC 151 MDM Narrative Medical decision making narrative: Patient was not in DKA with a pH of 7.397. She was hyperglycemic. Her tachycardia improved with time here in the ER. She was tolerating oral intake. I suspect that she was feeling the way that she was feeling because she has not had her blood sugars adequately controlled. We discussed the use of the long- acting insulin at night and she will gradually go back up to the 40 units and then use her short-acting sliding scale during the day. I did recommend that she contact her primary doctor for follow-up. She was given return precautions. She expressed understanding and agreement with plan. Discharge Plan Departure Patient Disposition: Home Clinical Impression: Hyperglycemia Instructions: DI for Hyperglycemia -- Adult Activity Restrictions/Additional Instructions: I do recommend that you gradually increase your night dose of your long-acting insulin. Tonight take 30 units and see what your blood sugars are like tomorrow. If they are still elevated you can take 40 units tomorrow evening. I do recommend that you contact your primary care doctor for a follow-up. Return to the emergency department for new or worsening symptoms Prescriptions: No Action aripiprazole [Abilify] 15 mg tablet 15 mg PO DAILY Qty: 30 11RF (DME) pen needle, diabetic [Aqinject Pen Needle] 32 gauge x 5/32 needle See Rx Instructions .Route Qty: 1200 3RF Rx Instructions: use to inject insulin 4-6 times a day as needed. potassium chloride 10 mEq capsule, extended release 10 meq PO DAILY PRN (Reason: for edema) Qty: 90 3RF (DME) lancets [FreeStyle Lancets] 28 gauge misc See Rx Instructions .Route Qty: 100 11RF Rx Instructions: use to check blood glucose three times a day. omeprazole 40 mg capsule,delayed release(DR/EC) 40 mg PO DAILY Qty: 90 3RF lisinopril 10 mg tablet 10 mg PO DAILY Qty: 90 3RF trazodone 100 mg tablet 100 mg PO DAILY Qty: 90 3RF valacyclovir 500 mg tablet 500 mg PO DAILY Qty: 90 3RF methocarbamol 500 mg tablet 500 mg PO TID Qty: 30 2RF atomoxetine 25 mg capsule 25 mg PO DAILY Patient Comments: [NO ORIGINAL SIG] finasteride 5 mg tablet 2.5 mg PO DAILY Patient Comments: [NO ORIGINAL SIG] Januvia 50 mg tablet 50 mg PO DAILY Patient Comments: [NO ORIGINAL SIG] metformin 750 mg tablet extended release 24 hr PO Patient Comments: [NO ORIGINAL SIG] alprazolam [Xanax] 1 mg tablet 1 mg PO BID PRN (Reason: anxiety) Qty: 60 5RF Rx Instructions: must last 30 days insulin lispro [Admelog U-100 Insulin lispro] 100 unit/mL solution 1 sliding scale dose SUBCUT USEASDIRECTD Patient Comments: insulin pump-pt removed pump at 0830 atorvastatin 40 mg tablet 40 mg PO DAILY furosemide [Lasix] 20 mg tablet 20 mg PO DAILY PRN (Reason: edema, wt gain) Qty: 30 11RF oxcarbazepine 300 mg tablet 300 mg PO BID Rx Instructions: 300mg in the morning and 600mg at night polyethylene glycol 3350 [Miralax] 17 gram/dose powder 17 g PO PRN PRN (Reason: Constipation) norethindrone (contraceptive) 0.35 mg tablet 0.35 mg PO DAILY Qty: 84 0RF Referrals: Lilliana Gallagher DO [Primary Care Provider] - Stand Alone Forms: Patient Portal/API
[2023-10-10] MEDS: SODIUM CHLORIDE 0.9% 1,000 ML 1000 ML IV (13:00)
[2023-10-10 13:02] LABS: Add Manual Diff / Slide Review NO; Basophils Absolute Auto 100 /uL (0-100); Basophils Percent Auto 1.3 % (0-2); Eosinophils Absolute Auto 100 /uL (0-450); Eosinophils Percent Auto 1.1 % (2-4); Hematocrit 37.5 % (36-46); Hemoglobin 12.9 g/dL (12.0-16.0); Lymphocytes Absolute Auto 1800 /uL (1100-4500); Lymphocytes Percent Auto 18.4 % (25-40); Mean Corpuscular HGB Conc 34.4 % (30-36); Mean Corpuscular Hemoglobin 29.3 PG (26-34); Mean Corpuscular Volume 85.4 fL (80-100); Monocytes Absolute Auto 700 /uL (0-900); Monocytes Percent Auto 7.1 % (3-14); Neutrophils Absolute Auto 7300 /uL (1500-7000); Neutrophils Percent Auto 72.1 % (50-75); Platelet Count 288 X10^3/uL (150-400); Red Blood Cell Count 4.39 X10^6/uL (4.0-5.2); Red Cell Distribution Width 13.9 % (11.6-14.8); White Blood Cell Count 10.1 X10^3/uL (4.5-11.0)
--- NOTE | 2023-10-10 13:18 | PC.NURSE ---
Pts IV appears to have infiltrated and then fell out. Pts IV site wrapped in coban and warm blanket applied. Dr Saavedra aware,ordered pt begin drinking PO fluids.
[2023-10-10 13:23] LABS: Alanine Aminotransferase 26 IU/L (<35); Albumin 4.5 g/dL (3.5-5.0); Albumin Globulin Ratio 1.5 (1.0-2.8); Alkaline Phosphatase 101 U/L (38-126); Aspartate Aminotransferase 44 IU/L (14-36); BUN Creatinine Ratio 22.7 (6-22); Bilirubin Total 0.6 mg/dL (0.2-1.3); Blood Urea Nitrogen 17 mg/dL (7-17); Calcium 9.4 mg/dL (8.4-10.2); Carbon Dioxide 17 mmol/L (22-32); Chloride 103 mmol/L (98-107); Estimated Glomerular Filt Rate > 60 mL/min (>60); Glucose 201 mg/dL (70-100); HEMOLYSIS 57 (0-50); Lipase 70 U/L (23-300); Magnesium 1.7 mg/dL (1.6-2.3); Phosphorous 3.1 mg/dL (2.5-4.5); Potassium 4.8 mmol/L (3.4-5.1); Sodium 133 mmol/L (137-145); Total Protein 7.5 g/dL (6.3-8.2)
[2023-10-10 14:04] LABS: Base Excess VBG -0.8 mmol/L (0-4); HCO3 VBG 24 mmol/L (24-28); Oxygen Saturation VBG 79 % (70-75); PCO2 VBG 38.9 mmHg (45-50); PO2 VBG 44 mmHg (35-45); Total CO2 VBG 24 mmol/L (24-29)
--- NOTE | 2023-10-10 14:17 | PC.NURSE ---
Pt states that she feels better. BG 151. Denies pain, sob, cp, n/v. A&Ox4.
[2023-10-10 15:18] LABS: Ketones (Beta-Hydroxybutyrate) < 0.20 mmol/L (<0.27)
== END 2023-10-10 14:43 | disposition home or self-care (01) ==
PROVIDERS: Emergency Provider Emergency Medicine; Family Provider Family Medicine; PCP Family Medicine
DX: E11.65 Type 2 diabetes mellitus with hyperglycemia (principal); R00.0 Tachycardia, unspecified
CPT/HCPCS: 80053; 82009; 82805; 82962; 83690; 83735; 84100; 85025; 99283

== ENCOUNTER → 2023-12-04 13:13 | Outpatient (CLI) | payer OTHER, MEDICAID, SELFPAY ==
--- NOTE | 2023-12-04 | DI.US.S_ITS ---
ULTRASOUND OF LEFT BREAST: 12/04/2023 CLINICAL: Palpable left breast lump. Comparison is made to exams dated: 12/04/2023 mammogram - [facility] and 03/01/2023 mammogram - [facility]. Color flow and real-time ultrasound of the left breast were performed. Watters scale images of the real-time examination were reviewed. No significant abnormalities were seen sonographically in the left breast. IMPRESSION: NEGATIVE There is no sonographic evidence of malignancy. There are no abnormalities seen in the left breast to correspond with the areas of clinical concern and palpable abnormalities at 6, 7, and 8 o'clock in the posterior depth of the lower inner quadrant, however, recommend clinical follow up for persistent or worsening symptoms, or development of any clinically suspicious findings. A 1 year screening mammogram is recommended. Findings and recommendations were conveyed to the patient during today's evaluation. This exam was interpreted at Station ID: [id number]. Electronically Signed By: Nikolas Cunningham M.D. aty/:12/04/2023 14:49:44 letter sent: Clinical Evaluation ACR BI-RADS Category 1: Negative
--- NOTE | 2023-12-04 | DI.MG.S_ITS ---
BILATERAL DIGITAL DIAGNOSTIC MAMMOGRAM 3D/2D: 12/04/2023 CLINICAL: Bilateral breast lumps. Comparison is made to exam dated: 03/01/2023 mammogram - [facility]. There are scattered areas of fibroglandular density (category b / 25%-50% glandular tissue). No significant masses, calcifications, or other findings are seen in either breast. IMPRESSION: INCOMPLETE: NEED ADDITIONAL IMAGING EVALUATION There is no abnormality seen in the left breast to correspond with the area of clinical concern and palpable abnormality indicated by triangular marker in the posterior depth in the lower inner quadrant, however, ultrasound is recommended for further evaluation and is scheduled to immediately follow this examination. There is no abnormality seen in the right breast to correspond with the area of clinical concern and palpable abnormality indicated by triangular marker in the posterior depth in the lower inner quadrant, however, ultrasound is recommended for further evaluation and is scheduled to immediately follow this examination. Based on the Tyrer Cuzick model (a risk assessment model) the patient's lifetime risk is 6.6% and her 10 year risk is 1.2%. According to the ACR, ACS, and NCCN guidelines, an annual breast MRI exam along with mammogram is recommended if the patient's lifetime risk is 20% or greater. This exam was interpreted at Station ID: [id number]. NOTE: For mammograms, a report in lay terms will be sent to the patient. Approximately 15% of breast malignancies will not be visualized mammographically. In the management of a palpable breast mass, a negative mammogram must not discourage biopsy of a clinically suspicious lesion. Electronically Signed By: Nikolas [email or web address]/:12/04/2023 14:23:33 Entry: - 12/06/2023 14:00:15 letter sent: Need Ultrasound ACR BI-RADS Category 0: Incomplete: Need Additional Imaging Evaluation
--- NOTE | 2023-12-04 13:14 | DI.US.S_ITS ---
ULTRASOUND OF RIGHT BREAST: 12/04/2023 CLINICAL: Palpable right breast lumps. Comparison is made to exams dated: 12/04/2023 mammogram - [facility] and 03/01/2023 mammogram - [facility]. Color flow and real-time ultrasound of the right breast were performed. Watters scale images of the real-time examination were reviewed. No significant abnormalities were seen sonographically in the right breast. IMPRESSION: NEGATIVE There is no sonographic evidence of malignancy. There are no abnormalities seen in the right breast to correspond with the areas of clinical concern and palpable abnormalities at 4, 5, and 6 o'clock in the posterior depth of the lower inner quadrant, however, recommend clinical follow up for persistent or worsening symptoms, or development of any clinically suspicious findings. A 1 year screening mammogram is recommended. Findings and recommendations were conveyed to the patient during today's evaluation. This exam was interpreted at Station ID: [id number]. Electronically Signed By: Nikolas Cunningham M.D. aty/:12/04/2023 14:48:12 letter sent: Clinical Evaluation ACR BI-RADS Category 1: Negative
== END ==
LOC: MAMMO 13:13
PROVIDERS: Family Provider Family Medicine; PCP Student in an Organized Health Care Education/Training Program; Referring Provider Obstetrics & Gynecology; Visit Provider Obstetrics & Gynecology
DX: R92.2 Inconclusive mammogram (principal); N63.10 Unspecified lump in the right breast, unspecified quadrant
CPT/HCPCS: 76642; 77066; G0279

== ENCOUNTER 2023-12-27 05:58 | Emergency (ER) | payer OTHER, MEDICAID, SELFPAY ==
--- NOTE | 2023-12-27 06:15 | ED_ITS ---
HPI - Skin/Abscess/Foreign Bdy General Chief complaint: Skin/Abscess/Foreign Body Stated complaint: infection in rt big toe, diabetic Time Seen by Provider: 12/27/23 06:01 History of Present Illness HPI narrative: 48-year-old female had been cutting her right great toenail with clippers, felt like she might have some ingrown component, used a screwdriver to help lift it, then cut a small amount out, with increasing redness and some discharge, though decreasing pain. No redness to top of her foot or other parts toenail. No plantar puncture wounds. Fevers or chills. She has allergies to Keflex and Bactrim antibiotics, has taken clindamycin antibiotic in the past Related Data Home Medications Medication Instructions Recorded Confirmed atorvastatin 40 mg tablet 40 mg PO DAILY 11/08/22 11/26/23 insulin lispro 100 unit/mL 1 sliding scale dose SUBCUT 11/08/22 11/26/23 subcutaneous solution (Admelog USEASDIRECTD U-100 Insulin lispro) polyethylene glycol 3350 17 17 g PO PRN PRN Constipation 09/27/23 11/26/23 gram/dose oral powder (Miralax) finasteride 5 mg tablet 2.5 mg PO DAILY 09/30/23 11/26/23 sitagliptin phosphate 50 mg tablet 50 mg PO DAILY 09/30/23 11/26/23 (Januvia) lisinopril 10 mg tablet 5 mg PO DAILY 11/26/23 11/26/23 metformin 750 mg tablet,extended 1,000 mg PO BID 11/26/23 11/26/23 release 24 hr Previous Rx's Medication Instructions Recorded pen needle, diabetic 32 gauge x #1,200 ea 11/20/22 (Aqinject Pen Needle) valacyclovir 500 mg tablet 500 mg PO DAILY #90 tabs 12/07/22 lancets 28 gauge (FreeStyle #100 ea 01/25/23 Lancets) omeprazole 40 mg capsule,delayed 40 mg PO DAILY #90 caps 03/11/23 release clonazepam 2 mg tablet 2 mg PO BID panic disorder #60 tabs 11/15/23 oxcarbazepine 300 mg tablet 300 mg PO BID #90 tabs 11/15/23 aripiprazole 15 mg tablet (Abilify) 15 mg PO DAILY #30 tabs 11/18/23 furosemide 20 mg tablet (Lasix) 20 mg PO DAILY PRN edema, wt gain 11/25/23 #90 tabs potassium chloride 10 mEq 10 meq PO DAILY PRN for edema #90 11/25/23 capsule,extended release caps fluconazole 150 mg tablet 150 mg PO Q3D 2 doses #2 tabs 11/26/23 nystatin 100,000 unit/gram topical 1 applic topical BID #60 grams 11/26/23 powder trazodone 100 mg tablet 100 mg PO DAILY #90 tabs 12/16/23 atomoxetine 40 mg capsule 40 mg PO BID ADHD #30 caps 12/20/23 clindamycin HCl 300 mg capsule 300 mg PO Q6H Dental infection 7 12/27/23 days #28 caps Allergies Allergy/AdvReac Type Severity Reaction Status Date / Time semaglutide [From Ozempic] Allergy Severe gastroparal Verified 11/26/23 09:33 ysis topiramate [From TOPAMAX] Allergy Unknown Confusion Verified 11/26/23 09:33 bupropion [From Wellbutrin] Allergy Confusion Verified 11/26/23 09:33 cephalexin [From Keflex] Allergy ITCHING Verified 11/26/23 09:33 Iodinated Contrast Media Allergy Vomiting Verified 11/26/23 09:33 sulfamethoxazole Allergy Swelling Verified 11/26/23 09:33 [From Bactrim] of Lip/Tongue/Throat trimethoprim [From Bactrim] Allergy Swelling Verified 11/26/23 09:33 of Lip/Tongue/Throat Review of Systems Review of Systems Narrative: See HPI Patient History Medical History (Updated 12/27/23 @ 06:29 by Hector Jaramillo MD) Breast complaint Nicotine addiction ADHD (attention deficit hyperactivity disorder) PTSD (post-traumatic stress disorder) Panic disorder with agoraphobia Presence of insulin pump MUSTAPHA (generalized anxiety disorder) Abnormal uterine bleeding (AUB) Chronic candidiasis of vulva and vagina JUDIT (obstructive sleep apnea) CAD (coronary artery disease) Mixed hyperlipidemia Tobacco dependence Type 2 diabetes mellitus with hyperglycemia, with long-term current use of insulin Bipolar 2 disorder Morbid obesity Surgical History Status post cholecystectomy Status post tubal ligation History of tonsillectomy Status post delivery Status post delivery Status post delivery Family History Father Heart disease Hypertension Heart attack Mother Mental health problem Hypertension Social History household members: family Smoking Status: Current every day smoker alcohol intake: never Smoking Status: Current every day smoker tobacco type: vaping alcohol intake frequency: other Substance Use Type: former substance user Exam Narrative Exam Narrative: GENERAL: Well-developed patient, in mild distress. HEAD: Atraumatic. Normocephalic. EYES: Pupils equal round and reactive. Extraocular motions intact. No scleral icterus. No injection or drainage. ENT: Nose without bleeding, purulent drainage. Throat without erythema, tonsillar hypertrophy or exudate. Airway patent. NECK: Trachea midline. Non tender CARDIOVASCULAR: Regular rate and rhythm without murmurs, gallops, or rubs. RESPIRATORY: Clear to auscultation. Breath sounds equal bilaterally. No wheezes, rales, or rhonchi. GASTROINTESTINAL: Abdomen soft, non-tender, nondistended. EXTREMITIES: Right great toe with medial aspect distal toenail removal, no fluctuance or periungual abscess suspected, slight erythema however, no expressible fluid from nailbed. No streaking redness to the toe or dorsal foot BACK: Nontender without deformity or crepitance. No flank tenderness. NEURO: AOx3. Motor functions grossly nonfocal SKIN: No rash or erythema of visible areas Initial Vital Signs Initial Vital Signs: Vital Signs Temperature 97.9 F 12/27/23 06:17 Pulse Rate 77 12/27/23 06:17 Respiratory Rate 18 12/27/23 06:17 Blood Pressure 160/87 H 12/27/23 06:17 Pulse Oximetry 98 12/27/23 06:17 Oxygen Delivery Method Room Air 12/27/23 06:17 Course Orders Ordered: Discontinued Medications Clindamycin HCl (Clindamycin 150 Mg Capsule) 300 mg PO NOW ONE Stop: 12/27/23 06:23 Last Admin: 12/27/23 06:27 Dose: 300 mg Vital Signs Vital signs: Vital Signs - 8 hr 12/27/23 06:17 Temperature 97.9 F Pulse Rate 77 Respiratory Rate 18 Blood Pressure 160/87 H Pulse Oximetry 98 Oxygen Delivery Method Room Air MDM - Skin/Abscess/Foreign Bdy MDM Narrative Medical decision making narrative: Right great toe medial periungual cellulitis, self manipulation of the nail, with nail cutting, and use of screwdriver to unroof what sounds to be described as a small spike, decreasing pain but increasing redness and some discharge. No fever. Sirs screen negative. Drug allergies noted to Keflex and Bactrim. We will give 1st oral dose clindamycin antibiotic, prescription sent to her pharmacy. Advised follow up with Orthopedic surgery on Saturday, consider podiatry consultation, may need partial/complete nail removal for resolution of symptoms Discharge Plan Departure Patient Disposition: Home Clinical Impression: Cellulitis of great toe Instructions: DI for Cellulitis -- Adult Activity Restrictions/Additional Instructions: Recent cutting of toenail with clippers, possible ingrown component, use of screwdriver to unroof small component, possible residual toenail spike, versus infection due to recent manipulation as above. Weeping and redness noted from the nailbed area. No fever noted on vitals. Drug allergies noted to antibiotics Keflex and Bactrim. First oral dose antibiotic clindamycin given in the emergency department, prescription sent for further oral course of antibiotics. Take antibiotics as directed. Take Tylenol and or Motrin as needed for pain control. 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 Consider office of on-call orthopedic surgery Dr. Julio Sprague, call office later today to make Saturday/Saturday appointment early this week. Outside Plant Cable Engineer might perform partial nail excision, or other procedure. Follow up with Podiatry/orthopedic surgery clinic. Return to this/nearest emergency department for any change worsening symptoms or any concerns prior Prescriptions: New clindamycin HCl 300 mg capsule 300 mg PO Q6H 7 Days Qty: 28 0RF No Action oxcarbazepine 300 mg tablet 300 mg PO BID Qty: 90 3RF Rx Instructions: 300mg in the morning and 600mg at night clonazepam 2 mg tablet 2 mg PO BID Qty: 60 1RF atomoxetine 40 mg capsule 40 mg PO BID Qty: 30 2RF (DME) pen needle, diabetic [Aqinject Pen Needle] 32 gauge x 5/32 needle See Rx Instructions .Route Qty: 1200 3RF Rx Instructions: use to inject insulin 4-6 times a day as needed. (DME) lancets [FreeStyle Lancets] 28 gauge misc See Rx Instructions .Route Qty: 100 11RF Rx Instructions: use to check blood glucose three times a day. omeprazole 40 mg capsule,delayed release(DR/EC) 40 mg PO DAILY Qty: 90 3RF aripiprazole [Abilify] 15 mg tablet 15 mg PO DAILY Qty: 30 11RF furosemide [Lasix] 20 mg tablet 20 mg PO DAILY PRN (Reason: edema, wt gain) Qty: 90 3RF potassium chloride 10 mEq capsule, extended release 10 meq PO DAILY PRN (Reason: for edema) Qty: 90 3RF trazodone 100 mg tablet 100 mg PO DAILY Qty: 90 3RF valacyclovir 500 mg tablet 500 mg PO DAILY Qty: 90 3RF finasteride 5 mg tablet 2.5 mg PO DAILY Patient Comments: [NO ORIGINAL SIG] Januvia 50 mg tablet 50 mg PO DAILY Patient Comments: [NO ORIGINAL SIG] metformin 750 mg tablet extended release 24 hr 1,000 mg PO BID Patient Comments: [NO ORIGINAL SIG] insulin lispro [Admelog U-100 Insulin lispro] 100 unit/mL solution 1 sliding scale dose SUBCUT USEASDIRECTD Patient Comments: insulin pump-pt removed pump at 0830 atorvastatin 40 mg tablet 40 mg PO DAILY lisinopril 10 mg tablet 5 mg PO DAILY nystatin 100,000 unit/gram powder 1 applic topical BID Qty: 60 3RF fluconazole 150 mg tablet 150 mg PO Q3D Qty: 2 0RF polyethylene glycol 3350 [Miralax] 17 gram/dose powder 17 g PO PRN PRN (Reason: Constipation) Referrals: Sharlene Conti [Primary Care Provider] - Jhoan Sprague MD [Physician] - Stand Alone Forms: Patient Portal/API/Survey
[2023-12-27 06:17] VITALS: BP 160/87; PULSE 77; RESP 18; TEMP 36.6; O2SAT 98; BMI 43.2
[2023-12-27] MEDS: CLINDAMYCIN 150 MG CAPSULE 300 MG PO (06:27)
== END 2023-12-27 06:39 | disposition home or self-care (01) ==
PROVIDERS: Emergency Provider Emergency Medicine; Family Provider Family Medicine; PCP Student in an Organized Health Care Education/Training Program
DX: L03.031 Cellulitis of right toe (principal)
CPT/HCPCS: 99283

== ENCOUNTER 2024-01-01 13:19 | Emergency (ER) | payer OTHER, MEDICAID, SELFPAY ==
[2024-01-01 13:25] VITALS: BP 140/71; PULSE 90; RESP 18; TEMP 36.6; O2SAT 99; BMI 42.5
--- NOTE | 2024-01-01 13:25 | DI.RAD.S_ITS ---
PROCEDURE: XR CHEST 1V INDICATIONS: chest pain TECHNIQUE: One view of the chest was acquired. COMPARISON: [facility], CR, XR CHEST 1V, 09/28/2023, 7:05. FINDINGS: Surgical changes and devices: None. Lungs and pleura: Lungs are clear. No pleural effusions or pneumothorax. Mediastinum: Mediastinal contours appear normal. Heart size is normal. Bones and chest wall: No suspicious bony lesions. Overlying soft tissues appear unremarkable. IMPRESSION: No acute cardiopulmonary abnormality is seen. Dictated by: Ronny Young M.D. on 01/01/2024 at 13:57 Approved by: Ronny Young M.D. on 01/01/2024 at 14:05
--- NOTE | 2024-01-01 13:29 | EKG_ITS ---
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
[2024-01-01 14:04] LABS: Add Manual Diff / Slide Review NO; Basophils Absolute Auto 100 /uL (0-100); Basophils Percent Auto 0.7 % (0-2); Eosinophils Absolute Auto 100 /uL (0-450); Eosinophils Percent Auto 0.4 % (2-4); Hematocrit 40.7 % (36-46); Hemoglobin 13.4 g/dL (12.0-16.0); Lymphocytes Absolute Auto 2600 /uL (1100-4500); Lymphocytes Percent Auto 20.9 % (25-40); Mean Corpuscular HGB Conc 33.1 % (30-36); Mean Corpuscular Hemoglobin 28.6 PG (26-34); Mean Corpuscular Volume 86.4 fL (80-100); Monocytes Absolute Auto 900 /uL (0-900); Monocytes Percent Auto 6.8 % (3-14); Neutrophils Absolute Auto 9000 /uL (1500-7000); Neutrophils Percent Auto 71.2 % (50-75); Platelet Count 278 X10^3/uL (150-400); Red Blood Cell Count 4.71 X10^6/uL (4.0-5.2); Red Cell Distribution Width 13.8 % (11.6-14.8); White Blood Cell Count 12.7 X10^3/uL (4.5-11.0)
[2024-01-01 14:08] LABS: INR 1.1 (0.9-1.3); Prothrombin Time 12.5 SECONDS (9.4-12.5)
[2024-01-01 14:10] LABS: PTT Partial Thromboplastin Tim 37 SECONDS (25.1-36.5)
[2024-01-01 14:13] LABS: Alanine Aminotransferase 26 IU/L (<35); Albumin 4.5 g/dL (3.5-5.0); Albumin Globulin Ratio 1.5 (1.0-2.8); Alkaline Phosphatase 92 U/L (38-126); Aspartate Aminotransferase 25 IU/L (14-36); BUN Creatinine Ratio 22.2 (6-22); Bilirubin Total 0.5 mg/dL (0.2-1.3); Blood Urea Nitrogen 16 mg/dL (7-17); Calcium 9.5 mg/dL (8.4-10.2); Carbon Dioxide 24 mmol/L (22-32); Chloride 100 mmol/L (98-107); Creatine Kinase 115 U/L (30-135); Estimated Glomerular Filt Rate > 60 mL/min (>60); Globulin 3.1 g/dL (1.7-4.1); Glucose 140 mg/dL (70-100); HEMOLYSIS 19 (0-50); Lipase 71 U/L (23-300); Magnesium 1.3 mg/dL (1.6-2.3); Potassium 4.3 mmol/L (3.4-5.1); Sodium 135 mmol/L (137-145); Total Protein 7.6 g/dL (6.3-8.2)
[2024-01-01 14:24] LABS: NT-proBNP (BNP-Adult 18+) < 20 pg/mL (<125); Troponin I < 0.012 ng/mL (0.01-0.034)
[2024-01-01 14:41] VITALS: PULSE 83; RESP 26; O2SAT 97
--- NOTE | 2024-01-01 14:57 | PC.NURSE ---
patient began having high heart rate and thumping feeling in chest this am around 0530. Then at 7am she states having off balance and pain in chest started. pain is located around sternum and does not radiate anywhere. She denies SOB. She denies anxiety history and other cardiac history. She says the pain does not get better or worse with movement, breathing, or palpation. she states that she has recently began taking rogaine for hair loss in pill form 1-2 wks ago. Had Covid and shingle shot 1 week ago. Father has hx of 3x bipass and [place].
[2024-01-01 15:00] VITALS: BP 118/81; PULSE 85; RESP 22; O2SAT 95
[2024-01-01 15:30] VITALS: BP 113/70; PULSE 85; RESP 21; O2SAT 96
--- NOTE | 2024-01-01 15:35 | ED_ITS ---
HPI - Chest Pain General Chief Complaint: Chest Pain Stated Complaint: chest px Time Seen by Provider: 01/01/24 15:35 Source: patient Mode of arrival: Ambulatory History of Present Illness HPI narrative: 48-year-old woman with a history of bipolar disorder, generalized anxiety disorder, diabetes, with a BMI of 42.5 presents today complaining of 5 minutes of chest palpitation. She describes it as hurting and feeling like her heart was going to pop out of her chest. She was going about her daily routine this morning had just taken her usual medications when the episode happened. Was not associated with dizziness, nausea, diaphoresis, abdominal pain. It resolved spontaneously and over the next couple of hours she had 5 discrete episodes of sharp stabbing pain through the right side of her chest. All symptoms have now resolved. She has never had similar findings Related Data Home Medications Medication Instructions Recorded Confirmed atorvastatin 40 mg tablet 40 mg PO DAILY 11/08/22 11/26/23 insulin lispro 100 unit/mL 1 sliding scale dose SUBCUT 11/08/22 11/26/23 subcutaneous solution (Admelog USEASDIRECTD U-100 Insulin lispro) polyethylene glycol 3350 17 17 g PO PRN PRN Constipation 09/27/23 11/26/23 gram/dose oral powder (Miralax) finasteride 5 mg tablet 2.5 mg PO DAILY 09/30/23 11/26/23 sitagliptin phosphate 50 mg tablet 50 mg PO DAILY 09/30/23 11/26/23 (Januvia) lisinopril 10 mg tablet 5 mg PO DAILY 11/26/23 11/26/23 metformin 750 mg tablet,extended 1,000 mg PO BID 11/26/23 11/26/23 release 24 hr Previous Rx's Medication Instructions Recorded pen needle, diabetic 32 gauge x #1,200 ea 11/20/22 (Aqinject Pen Needle) valacyclovir 500 mg tablet 500 mg PO DAILY #90 tabs 12/07/22 lancets 28 gauge (FreeStyle #100 ea 01/25/23 Lancets) omeprazole 40 mg capsule,delayed 40 mg PO DAILY #90 caps 03/11/23 release clonazepam 2 mg tablet 2 mg PO BID panic disorder #60 tabs 11/15/23 oxcarbazepine 300 mg tablet 300 mg PO BID #90 tabs 11/15/23 aripiprazole 15 mg tablet (Abilify) 15 mg PO DAILY #30 tabs 11/18/23 furosemide 20 mg tablet (Lasix) 20 mg PO DAILY PRN edema, wt gain 11/25/23 #90 tabs potassium chloride 10 mEq 10 meq PO DAILY PRN for edema #90 11/25/23 capsule,extended release caps fluconazole 150 mg tablet 150 mg PO Q3D 2 doses #2 tabs 11/26/23 nystatin 100,000 unit/gram topical 1 applic topical BID #60 grams 11/26/23 powder trazodone 100 mg tablet 100 mg PO DAILY #90 tabs 12/16/23 atomoxetine 40 mg capsule 40 mg PO BID ADHD #30 caps 12/20/23 clindamycin HCl 300 mg capsule 300 mg PO Q6H Dental infection 7 12/27/23 days #28 caps Allergies Allergy/AdvReac Type Severity Reaction Status Date / Time semaglutide [From Ozempic] Allergy Severe gastroparal Verified 01/01/24 13:28 ysis topiramate [From TOPAMAX] Allergy Unknown Confusion Verified 01/01/24 13:28 bupropion [From Wellbutrin] Allergy Confusion Verified 01/01/24 13:28 cephalexin [From Keflex] Allergy ITCHING Verified 01/01/24 13:28 Iodinated Contrast Media Allergy Vomiting Verified 01/01/24 13:28 sulfamethoxazole Allergy Swelling Verified 01/01/24 13:28 [From Bactrim] of Lip/Tongue/Throat trimethoprim [From Bactrim] Allergy Swelling Verified 01/01/24 13:28 of Lip/Tongue/Throat Review of Systems Review of Systems Narrative: Pertinent positive and negative findings as per HPI Patient History Medical History Breast complaint Nicotine addiction ADHD (attention deficit hyperactivity disorder) PTSD (post-traumatic stress disorder) Panic disorder with agoraphobia Presence of insulin pump MUSTAPHA (generalized anxiety disorder) Abnormal uterine bleeding (AUB) Chronic candidiasis of vulva and vagina JUDIT (obstructive sleep apnea) CAD (coronary artery disease) Mixed hyperlipidemia Tobacco dependence Type 2 diabetes mellitus with hyperglycemia, with long-term current use of insulin Bipolar 2 disorder Morbid obesity Surgical History Status post cholecystectomy Status post tubal ligation History of tonsillectomy Status post delivery Status post delivery Status post delivery Family History Father Heart disease Hypertension Heart attack Mother Mental health problem Hypertension Social History household members: family Smoking Status: Current every day smoker alcohol intake: never Smoking Status: Current every day smoker tobacco type: vaping alcohol intake frequency: other Substance Use Type: former substance user Exam Initial Vital Signs Initial Vital Signs: Vital Signs Temperature 98 F 01/01/24 13:25 Pulse Rate 90 01/01/24 13:25 Respiratory Rate 18 01/01/24 13:25 Blood Pressure 140/71 01/01/24 13:25 Pulse Oximetry 99 01/01/24 13:25 Oxygen Delivery Method Room Air 01/01/24 13:25 General: Healthy appearing, mildly anxious but in no acute distress. Able to give a complete and coherent history. Well-nourished well-developed HEENT: Moist mucous membranes, normal sclera with reactive pupils, Respiratory: Lungs are clear to auscultation, no wheezing no rales no rhonchi. Full and symmetrical air movement Cardiac: Regular rate and rhythm no murmurs no bruits Abdomen: Soft, nontender, good bowel tones, no flank pain Skin: Warm and dry, no rashes Neurologic: Grossly neurologically intact with no obvious asymmetries or abnormalities Extremities: No trauma, well perfused Psych: Cooperative, appropriate insight and affect Course Orders Ordered: ED Orders 01/01/24 13:25 XR chest 1V Stat EKG-12 Lead Stat 01/01/24 13:40 Complete Blood Count AUTO DIFF Stat Comprehensive Metabolic Panel Stat Lipase Stat Magnesium Stat NT-proBNP (BNP-Adult 18+) Stat PTT Partial Thromboplastin Mahad Stat Prothrombin Time INR Stat Troponin & CK Cardiac Panel Stat Discontinued Medications Aspirin (Aspirin 81 Mg Chew Tab) 324 mg PO NOW ONE Stop: 01/01/24 13:26 Vital Signs Vital signs: Vital Signs - 8 hr 01/01/24 13:25 01/01/24 14:41 01/01/24 15:00 Temperature 98 F Pulse Rate 90 83 85 Respiratory Rate 18 26 H 22 Blood Pressure 140/71 Pulse Oximetry 99 97 95 Oxygen Delivery Method Room Air 01/01/24 15:00 01/01/24 15:30 01/01/24 15:30 Temperature Pulse Rate 85 Respiratory Rate 21 Blood Pressure 118/81 113/70 Pulse Oximetry 96 Oxygen Delivery Method MDM - Chest Pain Lab Data 01/01/24 13:40 01/01/24 13:40 Labs: Lab Results 01/01/24 Range/Units 13:40 WBC 12.7 H (4.5-11.0) X10^3/uL RBC 4.71 (4.0-5.2) X10^6/uL Hgb 13.4 (12.0-16.0) g/dL Hct 40.7 (36-46) % MCV 86.4 (80-100) fL MCH 28.6 (26-34) PG MCHC 33.1 (30-36) % RDW 13.8 (11.6-14.8) % Plt Count 278 (150-400) X10^3/uL Neut % (Auto) 71.2 (50-75) % Lymph % (Auto) 20.9 L (25-40) % [place] % (Auto) 6.8 (3-14) % Eos % (Auto) 0.4 L (2-4) % Baso % (Auto) 0.7 (0-2) % Neut # (Auto) 9000 H (0160-8445) /uL Lymph # (Auto) 2600 (8317-5852) /uL [place] # (Auto) 900 (0-900) /uL Eos # (Auto) 100 (0-450) /uL Baso # (Auto) 100 (0-100) /uL PT 12.5 (9.4-12.5) SECONDS INR 1.1 (0.9-1.3) APTT 37 H (25.1-36.5) SECONDS Sodium 135 L (137-145) mmol/L Potassium 4.3 (3.4-5.1) mmol/L Chloride 100 (98-107) mmol/L Carbon Dioxide 24 (22-32) mmol/L BUN 16 (7-17) mg/dL Creatinine 0.72 (0.52-1.04) mg/dL Estimated GFR > 60 (>60) mL/min BUN/Creatinine Ratio 22.2 H (6-22) Glucose 140 H (70-100) mg/dL Calcium 9.5 (8.4-10.2) mg/dL Magnesium 1.3 L (1.6-2.3) mg/dL Total Bilirubin 0.5 (0.2-1.3) mg/dL AST 25 (14-36) IU/L ALT 26 (<35) IU/L Alkaline Phosphatase 92 (38-126) U/L Total Creatine Kinase 115 (30-135) U/L Troponin I < 0.012 (0.01-0.034) ng/mL NT-Pro-B Natriuret Pep < 20 (<125) pg/mL Total Protein 7.6 (6.3-8.2) g/dL Albumin 4.5 (3.5-5.0) g/dL Globulin 3.1 (1.7-4.1) g/dL Albumin/Globulin Ratio 1.5 (1.0-2.8) Lipase 71 (23-300) U/L MDM Narrative Medical decision making narrative: CC: 5 minutes of chest palpitation and 5 discrete episodes of lancinating pain through the right side of her chest Complicating co-morbidities: BMI of 42, generalized anxiety disorder, bipolar disorder, diabetes, hypertension Data collected from: patient Medical records reviewed: Recent scan [facility] as well as primary care notes reviewed Differential considered: Sinus tach due to anxiety, SVT, atrial fibrillation, ventricular tachycardia given the lack of other symptoms I doubt the this was an episode of ventricular fibrillation Exam documented above, pertinent findings include: Patient's exam is otherwise benign Lab Test results independently reviewed as above. Pertinent findings: CBC shows white count at 12.7, no anemia no left shift Chemistries show slightly elevated blood sugar at 140. Magnesium slightly low at 1.3 Troponin is undetected BNP is reassuring Independently reviewed EKG: Sinus rhythm at a rate of 90. No ischemic changes Imaging studies independently reviewed: Chest x-ray is unremarkable Discussion: 48-year-old woman with 5 minutes of palpitations significant enough that her heart felt like it was going to come out of her chest. Workup today is entirely unremarkable. There was no evidence of acute coronary syndrome, congestive heart failure, no obvious abnormalities on tele while she has been in the emergency department. No electrolyte abnormalities beyond a slightly low magnesium. She has never had similar findings. Explained the negative workup today reason that we did not need to do any additional imaging studies or hospitalize her today. Questions were answered she remained quite reassured and will follow up with her primary care physician Discharge Plan Departure Patient Disposition: Home Clinical Impression: Heart palpitations Instructions: DI for Arrhythmias Activity Restrictions/Additional Instructions: Thank you for coming in today Your workup today was very reassuring. There was no evidence of heart attack, infection, enlarged heart, kidney problems, liver problems or significant electrolyte abnormalities While you are in the emergency department you did not have any additional palpitations for me to see on the telemetry At this point there is nothing life-threatening however I would recommend follow up with your primary care physician. There are outpatient cardiac monitoring devices that your physician might decide would be helpful if you are having continued episodes of palpitations. If you find that you are getting worse or develop any new symptoms, please feel free to return to the emergency department for further evaluation. Prescriptions: No Action oxcarbazepine 300 mg tablet 300 mg PO BID Qty: 90 3RF Rx Instructions: 300mg in the morning and 600mg at night clonazepam 2 mg tablet 2 mg PO BID Qty: 60 1RF atomoxetine 40 mg capsule 40 mg PO BID Qty: 30 2RF (DME) pen needle, diabetic [Aqinject Pen Needle] 32 gauge x 5/32 needle See Rx Instructions .Route Qty: 1200 3RF Rx Instructions: use to inject insulin 4-6 times a day as needed. (DME) lancets [FreeStyle Lancets] 28 gauge misc See Rx Instructions .Route Qty: 100 11RF Rx Instructions: use to check blood glucose three times a day. omeprazole 40 mg capsule,delayed release(DR/EC) 40 mg PO DAILY Qty: 90 3RF aripiprazole [Abilify] 15 mg tablet 15 mg PO DAILY Qty: 30 11RF furosemide [Lasix] 20 mg tablet 20 mg PO DAILY PRN (Reason: edema, wt gain) Qty: 90 3RF potassium chloride 10 mEq capsule, extended release 10 meq PO DAILY PRN (Reason: for edema) Qty: 90 3RF trazodone 100 mg tablet 100 mg PO DAILY Qty: 90 3RF valacyclovir 500 mg tablet 500 mg PO DAILY Qty: 90 3RF finasteride 5 mg tablet 2.5 mg PO DAILY Patient Comments: [NO ORIGINAL SIG] Januvia 50 mg tablet 50 mg PO DAILY Patient Comments: [NO ORIGINAL SIG] metformin 750 mg tablet extended release 24 hr 1,000 mg PO BID Patient Comments: [NO ORIGINAL SIG] insulin lispro [Admelog U-100 Insulin lispro] 100 unit/mL solution 1 sliding scale dose SUBCUT USEASDIRECTD Patient Comments: insulin pump-pt removed pump at 0830 atorvastatin 40 mg tablet 40 mg PO DAILY lisinopril 10 mg tablet 5 mg PO DAILY nystatin 100,000 unit/gram powder 1 applic topical BID Qty: 60 3RF fluconazole 150 mg tablet 150 mg PO Q3D Qty: 2 0RF polyethylene glycol 3350 [Miralax] 17 gram/dose powder 17 g PO PRN PRN (Reason: Constipation) clindamycin HCl 300 mg capsule 300 mg PO Q6H 7 Days Qty: 28 0RF Referrals: Sharlene Conti [Primary Care Provider] - Stand Alone Forms: Patient Portal/API/Survey
[2024-01-01 16:00] VITALS: BP 125/80; PULSE 86; RESP 16; O2SAT 97
== END 2024-01-01 16:29 | disposition home or self-care (01) ==
PROVIDERS: Emergency Provider Emergency Medicine; Family Provider Family Medicine; PCP Student in an Organized Health Care Education/Training Program
DX: R00.2 Palpitations (principal); R07.9 Chest pain, unspecified
CPT/HCPCS: 36415; 71045; 80053; 82550; 83690; 83735; 83880; 84484; 85025; 85610; 85730; 93005; 93010; 99283; 99284

== ENCOUNTER → 2024-03-11 08:44 | Outpatient (CLI) | payer OTHER, SELFPAY ==
[2024-03-11 09:57] LABS: Influenza A - CEPHEID Flu A NEGATIVE (NEGATIVE); Influenza B - CEPHEID Flu B NEGATIVE (NEGATIVE); Respiratory Syncytial Virus Negative (Negative)
[2024-03-11 09:58] LABS: COVID-19 CEPHEID 4-PLEX PCR Negative (Negative)
== END ==
PROVIDERS: Family Provider Family Medicine; PCP Student in an Organized Health Care Education/Training Program; Visit Provider Nurse Practitioner Family
DX: J02.9 Acute pharyngitis, unspecified (principal); R52 Pain, unspecified
CPT/HCPCS: 0241U; 87070

== ENCOUNTER → 2024-03-11 08:58 | Outpatient (CLI) | payer OTHER, SELFPAY ==
--- NOTE | 2024-03-11 09:00 | DI.RAD.S_ITS ---
PROCEDURE: XR CHEST 2V INDICATIONS: Cough TECHNIQUE: 2 views of the chest were acquired. COMPARISON: [facility], CR, XR CHEST 1V, 01/01/2024, 13:35. [facility], CR, XR CHEST 1V, 09/28/2023, 7:05. FINDINGS: Surgical changes and devices: None. Lungs and pleura: Lungs are clear. No pleural effusions or pneumothorax. Mediastinum: Mediastinal contours are normal. Heart size is normal. Bones and chest wall: No suspicious bony abnormalities. Soft tissues appear unremarkable. IMPRESSION: No acute cardiopulmonary abnormality is seen. Dictated by: Zackary Prieto M.D. on 03/11/2024 at 11:55 Approved by: Zackary Prieto M.D. on 03/11/2024 at 11:56
== END ==
PROVIDERS: Family Provider Family Medicine; PCP Family Medicine; Referring Provider Nurse Practitioner Family; Visit Provider Nurse Practitioner Family
DX: R05.9 Cough, unspecified (principal)
CPT/HCPCS: 87635; 87400; 87420; 0241U; 71046; 87070

== ENCOUNTER → 2024-03-20 12:37 | Outpatient (CLI) | payer OTHER, SELFPAY ==
[2024-03-22 08:10] LABS: Candida species Negative (Negative); Gardnerella vaginalis Negative (Negative); Trichomoas vaginalis Negative (Negative)
== END ==
PROVIDERS: Family Provider Family Medicine; PCP Family Medicine; Visit Provider Obstetrics & Gynecology
DX: N89.8 Other specified noninflammatory disorders of vagina (principal)
CPT/HCPCS: 87480; 87510; 87660

== ENCOUNTER → 2024-03-30 06:33 | Outpatient (CLI) | payer OTHER, SELFPAY ==
[2024-03-30 07:42] LABS: Hematocrit 37.9 % (36-46); Hemoglobin 12.6 g/dL (12.0-16.0); Mean Corpuscular HGB Conc 33.4 % (30-36); Mean Corpuscular Hemoglobin 28.4 PG (26-34); Mean Corpuscular Volume 85.1 fL (80-100); Platelet Count 259 X10^3/uL (150-400); Red Blood Cell Count 4.45 X10^6/uL (4.0-5.2); Red Cell Distribution Width 14.3 % (11.6-14.8); White Blood Cell Count 11.5 X10^3/uL (4.5-11.0)
[2024-03-30 07:49] LABS: Creatinine Urine Random 218.27 mg/dL
[2024-03-30 07:52] LABS: Hemoglobin A1C% w Est Avg Glu 6.9 % (4.0-6.0)
[2024-03-30 07:54] LABS: Microalbumin Urine Random 1.4 mg/dL (0-1.6)
[2024-03-30 08:06] LABS: Alanine Aminotransferase 26 IU/L (<35); Albumin 3.8 g/dL (3.5-5.0); Albumin Globulin Ratio 1.6 (1.0-2.8); Alkaline Phosphatase 103 U/L (38-126); Aspartate Aminotransferase 23 IU/L (14-36); BUN Creatinine Ratio 19.3 (6-22); Bilirubin Total 0.2 mg/dL (0.2-1.3); Blood Urea Nitrogen 11 mg/dL (7-17); Calcium 9.4 mg/dL (8.4-10.2); Carbon Dioxide 21 mmol/L (22-32); Chloride 105 mmol/L (98-107); Cholesterol 149 mg/dL (140-199); Estimated Glomerular Filt Rate > 60 mL/min (>60); Globulin 2.4 g/dL (1.7-4.1); Glucose 238 mg/dL (70-100); HDL Cholesterol 41 mg/dL (40-60); HEMOLYSIS < 15 (0-50); LDL Cholesterol Calculated 54 mg/dL (<100); Potassium 4.1 mmol/L (3.4-5.1); Sodium 135 mmol/L (137-145); Total Protein 6.2 g/dL (6.3-8.2); Triglycerides 271 mg/dL (35-150)
== END ==
PROVIDERS: Family Provider Family Medicine; PCP Family Medicine; Referring Provider Family Medicine; Visit Provider Family Medicine
DX: E11.65 Type 2 diabetes mellitus with hyperglycemia (principal); Z79.4 Long term (current) use of insulin
CPT/HCPCS: 36415; 80053; 80061; 82043; 82570; 83036; 85027

== ENCOUNTER → 2024-06-12 14:04 | Outpatient (CLI) | payer OTHER, SELFPAY ==
[2024-06-12 14:30] LABS: Appearance Urine UA CLEAR; Bilirubin Urine UA NEGATIVE (NEGATIVE); Color Urine UA YELLOW; Glucose Urine UA NEGATIVE (Negative); Ketones Urine UA NEGATIVE (NEGATIVE); Leukocyte Esterase Urine UA TRACE (NEGATIVE); Nitrite Urine UA POSITIVE (Negative); Occult Blood Urine UA NEGATIVE (Negative); Protein Urine UA NEGATIVE (Negative); Urobilinogen Urine UA 0.2 E.U./dL (0.2)
[2024-06-12 14:31] LABS: pH Urine UA 5.5 (4.5-8.0)
[2024-06-12 14:37] LABS: Amorphous Sediment Urine 1+; Bacteria Urine Moderate (10-30); RBC Urine None Seen (0-5/HPF); Squamous Epithelial Cell Urine 10-30 /HPF (0-5/HPF); Transitional Epi Cells Urine 1-5/HPF (0-5/HPF); Urine Volume 10mL (spun); WBC Urine 5-10/HPF (0-5/HPF)
== END ==
PROVIDERS: Family Provider Family Medicine; PCP Family Medicine; Referring Provider Family Medicine; Visit Provider Family Medicine
DX: R39.89 Other symptoms and signs involving the genitourinary system (principal)
CPT/HCPCS: 81001; 87077; 87086; 87186

== ENCOUNTER → 2024-07-07 15:46 | Outpatient (CLI) | payer OTHER, SELFPAY ==
[2024-07-11 12:08] LABS: Chlamydia trachomatis Negative (Negative); Mycoplasma genitalium Negative (Negative); Neisseria gonorrhoeae Negative (Negative)
== END ==
PROVIDERS: Family Provider Family Medicine; PCP Family Medicine; Visit Provider Obstetrics & Gynecology
DX: N39.0 Urinary tract infection, site not specified (principal); N89.8 Other specified noninflammatory disorders of vagina
CPT/HCPCS: 87086; 87491; 87563; 87591

== ENCOUNTER → 2024-07-16 11:50 | Outpatient (CLI) | payer OTHER, SELFPAY ==
--- NOTE | 2024-07-16 11:51 | DI.RAD.S_ITS ---
PROCEDURE: XR HIP W PEL IF DONE BILAT 3V INDICATIONS: bilateral hip pain suspected greater trochanteric pain TECHNIQUE: Three views total of the pelvis and hips were acquired. COMPARISON: [facility], , HIP BILAT 2V W PEL IF PERFORMED, 05/12/2015, 10:31. FINDINGS: Transitional vertebra with either partial sacralization of L5 or partial lumbarization of S1 unchanged. Mild degenerative changes lower lumbar spine and hips mildly progressed. No radiographic evidence of displaced fracture, dislocation or high attenuation soft tissue foreign body IMPRESSION: Mild degenerative changes mildly progressed. Transitional vertebra lumbosacral junction unchanged. If symptoms persist or worsen, or there is high clinical suspicion of lumbosacral abnormality, MRI could be performed. Dictated by: Celso Solorio M.D. on 07/17/2024 at 9:34 Approved by: Celso Solorio M.D. on 07/17/2024 at 9:39
--- NOTE | 2024-07-16 11:51 | DI.RAD.S_ITS ---
PROCEDURE: XR KNEE RT 3V INDICATIONS: right knee pain TECHNIQUE: 3 views of the knee were acquired. COMPARISON: [facility], CR, KNEE 3V LEFT, 05/17/2015, 16:56. FINDINGS: Bones: No fractures or dislocations. No suspicious bony lesions. Soft tissues: No joint effusion. No suspicious soft tissue calcifications. IMPRESSION: No acute bony abnormality or significant effusion. If symptoms persist or worsen, or there is high clinical suspicion of right knee abnormality, MRI could be performed. Dictated by: Celso Solorio M.D. on 07/17/2024 at 9:32 Approved by: Celso Solorio M.D. on 07/17/2024 at 9:34
== END ==
PROVIDERS: Family Provider Family Medicine; PCP Family Medicine; Referring Provider Family Medicine; Visit Provider Family Medicine
DX: M25.561 Pain in right knee (principal); M25.552 Pain in left hip; M25.551 Pain in right hip
CPT/HCPCS: 73521; 73562

== ENCOUNTER 2024-08-07 06:28 | Emergency (ER) | payer OTHER, SELFPAY ==
[2024-08-07] VITALS (11 sets, daily range): BP systolic 108–169; BP diastolic 58–87; PULSE 74–97; RESP 22; TEMP 36.6; O2SAT 94–99; BMI 41.5
--- NOTE | 2024-08-07 07:01 | DI.CT.S_ITS ---
PROCEDURE: CT HEAD/BRAIN WO CON INDICATIONS: severe headache TECHNIQUE: Noncontrast 4.5 mm thick angled axial sections acquired from the foramen magnum to the vertex, with coronal and sagittal reformats. For radiation dose reduction, the following was used: automated exposure control, adjustment of mA and/or kV according to patient size. COMPARISON: None. FINDINGS: Image quality: Diagnostic. CSF spaces: Basal cisterns are patent. No extra-axial fluid collections. Ventricles are normal in size and shape. Brain: No midline shift. No intracranial mass effect or hemorrhage. [place]- white matter interface is normal. Skull and face: Calvarium and visualized facial bones are intact, without suspicious lesions. Sinuses: Visualized sinuses and mastoids are clear. IMPRESSION: No acute intracranial pathology. Dictated by: Zackary Prieto M.D. on 08/07/2024 at 8:21 Approved by: Zackary Prieto M.D. on 08/07/2024 at 8:22
--- NOTE | 2024-08-07 07:02 | ED.HA ---
HPI - Headache <Caridad Dalton MD - Last Filed: 08/11/24 07:15> General Chief Complaint: Headache Stated Complaint: Headache x3 days Time Seen by Provider: 08/07/24 06:48 Mode of arrival: Ambulatory History of Present Illness HPI Narrative: 48-year-old woman with a history of bipolar 2 disorder, generalized anxiety disorder, PTSD, diabetes who presents with 3 days of headache that is getting significantly worse now positional worse when she sits up, not associated with fever she is having nausea but no overt vomiting. She states that she at 1 point was diagnosed with migraines was started on Topamax which did not agree with her she stopped taking this has not had a headache for approximately 15 years. She describes hitting her head on a towel rack on [facility] and not telling anybody about this is concerned that that may be contributing. Also concerned that her mother did have an aneurysm at 1 point. No chest pain, abdominal pain, lower extremity edema Related Data Home Medications ?Medication ?Instructions ?Recorded ?Confirmed polyethylene glycol 3350 17 17 g PO PRN PRN Constipation 09/27/23 07/15/24 gram/dose oral powder (Miralax) famotidine 20 mg tablet 20 mg PO DAILY 03/27/24 07/15/24 metoclopramide HCl 10 mg tablet 10 mg PO 3XD 03/27/24 07/15/24 minoxidil 2.5 mg tablet 2.5 mg PO DAILY 03/27/24 07/15/24 finasteride 5 mg tablet 5 mg PO DAILY 04/15/24 07/15/24 nicotine (polacrilex) 2 mg buccal 2 mg buccal Q2-4H PRN 04/15/24 07/15/24 lozenge Previous Rx's ?Medication ?Instructions ?Recorded pen needle, diabetic 32 gauge x #1,200 ea 11/20/22 (Aqinject Pen Needle) aripiprazole 15 mg tablet (Abilify) 15 mg PO DAILY #30 tabs 11/18/23 nystatin 100,000 unit/gram topical 1 applic topical BID #60 grams 11/26/23 powder trazodone 150 mg tablet 150 mg PO BEDTIME PRN insomnia #90 02/14/24 tabs blood-glucose sensor (Dexcom G7 #9 ea 04/03/24 Sensor device) blood-glucose,python programmer,cont #1 ea 04/03/24 (Dexcom G7 Seed Cleaning Machine Operator) insulin lispro 100 unit/mL 8 unit (0.08 mL) SUBCUT TID #15 mL 04/03/24 subcutaneous pen (Admelog SoloStar U-100 Insulin lispro) lancets 28 gauge (FreeStyle #100 ea 04/03/24 Lancets) valacyclovir 500 mg tablet 500 mg PO DAILY #90 tabs 04/29/24 gabapentin 400 mg capsule 400 mg PO TID PRN chronic back 06/01/24 pain #90 caps clonazepam 2 mg tablet 2 mg PO BID panic disorder #60 tabs 06/09/24 metformin 1,000 mg tablet 1,000 mg PO BID #180 tabs 06/12/24 nitrofurantoin macrocrystal 100 mg 100 mg PO BID #10 caps 06/12/24 capsule phentermine 30 mg capsule 30 mg PO DAILY #30 caps 06/12/24 sitagliptin phosphate 50 mg tablet 50 mg PO DAILY #90 tabs 06/23/24 (Januvia) atorvastatin 40 mg tablet 40 mg PO DAILY #90 tabs 07/03/24 fluconazole 150 mg tablet 150 mg PO DAILY #32 tabs 07/07/24 fosfomycin tromethamine 3 gram 3 g PO ONCE #1 ea 07/07/24 oral packet atomoxetine 40 mg capsule 40 mg PO BID ADHD #60 caps 07/10/24 guanfacine 1 mg tablet 1 mg PO BID #60 tabs 07/10/24 oxcarbazepine 300 mg tablet 300 mg PO .COMPLEX #90 tabs 07/10/24 insulin glargine 100 unit/mL (3 60 unit (0.6 mL) SUBCUT QPM #15 mL 07/14/24 mL) subcutaneous pen (Lantus Solostar U-100 Insulin) methocarbamol 500 mg tablet 500 mg PO TID PRN muscle spasm #90 07/24/24 tabs blood-glucose sensor (Dexcom G6 #3 ea 07/28/24 Sensor device) blood-glucose transmitter (Dexcom #1 ea 07/28/24 G6 Transmitter device) wsxedenvcy-crpsrwahlgjvz-tcgvofgk 1 cap PO Q8H PRN pain #10 caps 08/07/24 50 mg-300 mg-40 mg capsule (Fioricet) ondansetron 4 mg disintegrating 4 mg PO Q6H PRN nausea and 08/07/24 tablet vomiting #10 tabs Allergies Allergy/AdvReac Type Severity Reaction Status Date / Time semaglutide (From Ozempic) Allergy Severe gastroparal Verified 08/07/24 06:39 ysis topiramate (From TOPAMAX) Allergy Unknown Confusion Verified 08/07/24 06:39 bupropion (From Wellbutrin) Allergy Confusion Verified 08/07/24 06:39 cephalexin (From Keflex) Allergy ITCHING Verified 08/07/24 06:39 Iodinated Contrast Media Allergy Vomiting Verified 08/07/24 06:39 sulfamethoxazole (From Allergy Swelling Verified 08/07/24 06:39 Bactrim) of Lip/Tongue/Throat trimethoprim (From Bactrim) Allergy Swelling Verified 08/07/24 06:39 of Lip/Tongue/Throat Review of Systems <Caridad Dalton MD - Last Filed: 08/11/24 07:15> Review of Systems Narrative: Pertinent positive and negative findings as per HPI Patient History <Caridad Dalton MD - Last Filed: 08/11/24 07:15> Medical History Vaginal discharge Nicotine addiction ADHD (attention deficit hyperactivity disorder) PTSD (post-traumatic stress disorder) Panic disorder with agoraphobia Presence of insulin pump MUSTAPHA (generalized anxiety disorder) Abnormal uterine bleeding (AUB) Chronic candidiasis of vulva and vagina JUDIT (obstructive sleep apnea) CAD (coronary artery disease) Mixed hyperlipidemia Tobacco dependence Type 2 diabetes mellitus with hyperglycemia, with long-term current use of insulin Bipolar 2 disorder Morbid obesity Surgical History History of robot-assisted laparoscopic hysterectomy (05/22/24) Status post cholecystectomy Status post tubal ligation History of tonsillectomy Status post delivery Status post delivery Status post delivery Family History Father Heart disease Hypertension Heart attack Mother Mental health problem Hypertension Social History household members: family alcohol intake: never Smoking Status: Current every day smoker tobacco type: cigarettes alcohol intake frequency: other Exam <Caridad Dalton MD - Last Filed: 08/11/24 07:15> Initial Vital Signs Initial Vital Signs: Vital Signs Temperature 97.9 F 08/07/24 06:39 Pulse Rate 97 H 08/07/24 06:39 Respiratory Rate 22 08/07/24 06:39 Blood Pressure 169/87 H 08/07/24 06:39 Pulse Oximetry 97 08/07/24 06:39 Oxygen Delivery Method Room Air 08/07/24 06:39 General: Fatigued, appears to be in mild pain but Able to give a complete and coherent history. Well-nourished well-developed HEENT: Moist mucous membranes, normal sclera with reactive pupils, Respiratory: Lungs are clear to auscultation, no wheezing no rales no rhonchi. Full and symmetrical air movement Cardiac: Regular rate and rhythm Abdomen: Soft, nontender, no rebound or guarding, no flank pain Skin: Warm and dry, no rashes Neurologic: Grossly neurologically intact with no obvious asymmetries or abnormalities Extremities: No trauma, well perfused Psych: Cooperative, appropriate insight and affect <Emily Ramírez DO - Last Filed: 08/17/24 19:10> Initial Vital Signs Initial Vital Signs: Vital Signs Temperature 97.9 F 08/07/24 06:39 Pulse Rate 97 H 08/07/24 06:39 Respiratory Rate 22 08/07/24 06:39 Blood Pressure 169/87 H 08/07/24 06:39 Pulse Oximetry 97 08/07/24 06:39 Oxygen Delivery Method Room Air 08/07/24 06:39 Course <Caridad Dalton MD - Last Filed: 08/11/24 07:15> Orders Ordered: Discontinued Medications Dexamethasone (Dexamethasone 10 Mg/Ml Vial) 10 mg IV NOW ONE Stop: 08/07/24 07:02 Last Admin: 08/07/24 07:29 Dose: 10 mg Documented By: WANG Diphenhydramine HCl (Diphenhydramine 50 Mg/Ml Vial) 25 mg IV NOW ONE Stop: 08/07/24 07:02 Last Admin: 08/07/24 07:21 Dose: 25 mg Documented By: WANG Sodium Chloride (Normal Saline 0.9%) 1,000 mls @ 1,000 mls/hr IV BOLUS ONE Stop: 08/07/24 08:00 Last Infusion: 08/07/24 09:07 Dose: Infused Documented By: Admin: 08/07/24 07:18 Dose: 1,000 mls/hr Documented By: WANG Ketorolac Tromethamine (Ketorolac 30 Mg/Ml Vial) 15 mg IV NOW ONE Stop: 08/07/24 07:02 Last Admin: 08/07/24 07:20 Dose: 15 mg Documented By: WANG Morphine Sulfate (Morphine 4 Mg/Ml Inj) 4 mg IV NOW ONE Stop: 08/07/24 08:34 Last Admin: 08/07/24 09:06 Dose: 4 mg Documented By: WANG Prochlorperazine (Prochlorperazine 10 Mg/2 Ml Vial) 10 mg IV NOW ONE Stop: 08/07/24 07:02 Last Admin: 08/07/24 07:24 Dose: 10 mg Documented By: WANG Vital Signs Vital signs: Vital Signs - 8 hr 08/07/24 06:39 08/07/24 07:07 08/07/24 07:24 Temperature 97.9 F Pulse Rate 97 H 90 77 Respiratory Rate 22 Blood Pressure 169/87 H 153/86 H Pulse Oximetry 97 96 Oxygen Delivery Method Room Air 08/07/24 07:30 08/07/24 07:31 08/07/24 07:31 Temperature Pulse Rate 80 80 Respiratory Rate Blood Pressure 129/58 L Pulse Oximetry 94 94 Oxygen Delivery Method 08/07/24 07:56 08/07/24 07:56 08/07/24 08:00 Temperature Pulse Rate 79 74 Respiratory Rate Blood Pressure 115/63 Pulse Oximetry 95 94 Oxygen Delivery Method 08/07/24 08:00 Temperature Pulse Rate Respiratory Rate Blood Pressure 113/67 Pulse Oximetry Oxygen Delivery Method <Emily Ramírez, - Last Filed: 08/17/24 19:10> Orders Ordered: Discontinued Medications Dexamethasone (Dexamethasone 10 Mg/Ml Vial) 10 mg IV NOW ONE Stop: 08/07/24 07:02 Last Admin: 08/07/24 07:29 Dose: 10 mg Documented By: WANG Diphenhydramine HCl (Diphenhydramine 50 Mg/Ml Vial) 25 mg IV NOW ONE Stop: 08/07/24 07:02 Last Admin: 08/07/24 07:21 Dose: 25 mg Documented By: WANG Sodium Chloride (Normal Saline 0.9%) 1,000 mls @ 1,000 mls/hr IV BOLUS ONE Stop: 08/07/24 08:00 Last Infusion: 08/07/24 09:07 Dose: Infused Documented By: Admin: 08/07/24 07:18 Dose: 1,000 mls/hr Documented By: WANG Ketorolac Tromethamine (Ketorolac 30 Mg/Ml Vial) 15 mg IV NOW ONE Stop: 08/07/24 07:02 Last Admin: 08/07/24 07:20 Dose: 15 mg Documented By: WANG Morphine Sulfate (Morphine 4 Mg/Ml Inj) 4 mg IV NOW ONE Stop: 08/07/24 08:34 Last Admin: 08/07/24 09:06 Dose: 4 mg Documented By: WANG Prochlorperazine (Prochlorperazine 10 Mg/2 Ml Vial) 10 mg IV NOW ONE Stop: 08/07/24 07:02 Last Admin: 08/07/24 07:24 Dose: 10 mg Documented By: WANG Vital Signs Vital signs: Vital Signs - 8 hr 08/07/24 06:39 08/07/24 07:07 08/07/24 07:24 Temperature 97.9 F Pulse Rate 97 H 90 77 Respiratory Rate 22 Blood Pressure 169/87 H 153/86 H Pulse Oximetry 97 96 Oxygen Delivery Method Room Air 08/07/24 07:30 08/07/24 07:31 08/07/24 07:31 Temperature Pulse Rate 80 80 Respiratory Rate Blood Pressure 129/58 L Pulse Oximetry 94 94 Oxygen Delivery Method 08/07/24 07:56 08/07/24 07:56 08/07/24 08:00 Temperature Pulse Rate 79 74 Respiratory Rate Blood Pressure 115/63 Pulse Oximetry 95 94 Oxygen Delivery Method 08/07/24 08:00 Temperature Pulse Rate Respiratory Rate Blood Pressure 113/67 Pulse Oximetry Oxygen Delivery Method MDM - Headache <Caridad Dalton MD - Last Filed: 08/11/24 07:15> Lab Data 08/07/24 06:50 08/07/24 06:50 Labs: Lab Results 08/07/24 08/07/24 Range/Units 06:50 07:16 WBC 8.5 (4.5-11.0) X10^3/uL RBC 4.43 (4.0-5.2) X10^6/uL Hgb 12.8 (12.0-16.0) g/dL Hct 37.3 (36-46) % MCV 84.1 (80-100) fL MCH 28.9 (26-34) PG MCHC 34.3 (30-36) % RDW 14.6 (11.6-14.8) % Plt Count 223 (150-400) X10^3/uL Neut % (Auto) 61.9 (50-75) % Lymph % (Auto) 23.2 L (25-40) % Mason % (Auto) 12.2 (3-14) % Eos % (Auto) 1.6 L (2-4) % Baso % (Auto) 1.1 (0-2) % Neut # (Auto) 5300 (8590-0266) /uL Lymph # (Auto) 2000 (2254-9470) /uL Mason # (Auto) 1000 H (0-900) /uL Eos # (Auto) 100 (0-450) /uL Baso # (Auto) 100 (0-100) /uL Sodium 135 L (137-145) mmol/L Potassium 3.6 (3.4-5.1) mmol/L Chloride 104 (98-107) mmol/L Carbon Dioxide 21 L (22-32) mmol/L BUN 11 (7-17) mg/dL Creatinine 0.49 L (0.52-1.04) mg/dL Estimated GFR > 60 (>60) mL/min BUN/Creatinine Ratio 22.4 H (6-22) Glucose 172 H (70-99) mg/dL Calcium 8.7 (8.4-10.2) mg/dL Total Bilirubin 0.5 (0.2-1.3) mg/dL AST 39 H (14-36) IU/L ALT 37 H (<35) IU/L Alkaline Phosphatase 89 (38-126) U/L Total Protein 6.8 (6.3-8.2) g/dL Albumin 3.7 (3.5-5.0) g/dL Globulin 3.1 (1.7-4.1) g/dL Albumin/Globulin Ratio 1.2 (1.0-2.8) SARS-CoV-2 (PCR) Negative (Negative) Influenza A (RT-PCR) Flu a negative (NEGATIVE) Influenza B (RT-PCR) Flu b negative (NEGATIVE) RSV (PCR) Negative (Negative) MDM Narrative Medical decision making narrative: CC: Severe headache Complicating co-morbidities: Bipolar disorder, diabetes, hyperlipidemia, sleep apnea, generalized anxiety disorder, continued tobacco/vaping use Data collected from: patient Medical records reviewed: Primary care notes from July 24 and July 15 are reviewed Differential considered: Migraine, infection, intracranial hemorrhage, tension headache, aneurysmal/herald headache Exam documented above, pertinent findings include: Appears to be in pain but is not photophobic or sensitive to smells. Exam is nonlocalizing Lab Test results independently reviewed as above. Discussion: 48-year-old woman with severe headache increasing over 3 days. Questionable history of migraine but no headache for the last 15 years. Mild head trauma the end of May. Possible viral syndrome considered. Given the fact that the headache is so severe she has not had a headache and 15 years we will proceed with CT scan and blood work while treating for migraine 08/07/24 Dr. Ramírez: Patient signed out to myself by Dr. Dalton. Patient is seen and evaluated by myself. Patient presents with complaint of headache she states it has been most bothersome in the past 3 days but has been having headaches on and off lately. She does note a history of migraines but 15 years ago states she was on Topamax for it but it made her very emotionally labile and stopped it. She is nontoxic, well-appearing denies any other acute neurologic changes. Did note her mother of an aneurysm in her 40s. Non-con head CT is negative labs do not show any major changes, COVID/influenza/RSV is negative. Discussed CT angio head and neck for the patient based on her family history, she notes an allergy to contrast but states it is nausea and vomiting no other anaphylaxis or allergic symptoms. She did received dexamethasone and Benadryl here in the department. She states headache is mildly improved but still bothersome so was given additional dose of pain medication. CT angio head and neck is negative. Patient does not have any other red flag symptoms. <Emily Ramírez, DO - Last Filed: 08/17/24 19:10> Lab Data Labs: Lab Results 08/07/24 08/07/24 Range/Units 06:50 07:16 WBC 8.5 (4.5-11.0) X10^3/uL RBC 4.43 (4.0-5.2) X10^6/uL Hgb 12.8 (12.0-16.0) g/dL Hct 37.3 (36-46) % MCV 84.1 (80-100) fL MCH 28.9 (26-34) PG MCHC 34.3 (30-36) % RDW 14.6 (11.6-14.8) % Plt Count 223 (150-400) X10^3/uL Neut % (Auto) 61.9 (50-75) % Lymph % (Auto) 23.2 L (25-40) % Mason % (Auto) 12.2 (3-14) % Eos % (Auto) 1.6 L (2-4) % Baso % (Auto) 1.1 (0-2) % Neut # (Auto) 5300 (7246-9695) /uL Lymph # (Auto) 2000 (1509-4369) /uL Mason # (Auto) 1000 H (0-900) /uL Eos # (Auto) 100 (0-450) /uL Baso # (Auto) 100 (0-100) /uL Sodium 135 L (137-145) mmol/L Potassium 3.6 (3.4-5.1) mmol/L Chloride 104 (98-107) mmol/L Carbon Dioxide 21 L (22-32) mmol/L BUN 11 (7-17) mg/dL Creatinine 0.49 L (0.52-1.04) mg/dL Estimated GFR > 60 (>60) mL/min BUN/Creatinine Ratio 22.4 H (6-22) Glucose 172 H (70-99) mg/dL Calcium 8.7 (8.4-10.2) mg/dL Total Bilirubin 0.5 (0.2-1.3) mg/dL AST 39 H (14-36) IU/L ALT 37 H (<35) IU/L Alkaline Phosphatase 89 (38-126) U/L Total Protein 6.8 (6.3-8.2) g/dL Albumin 3.7 (3.5-5.0) g/dL Globulin 3.1 (1.7-4.1) g/dL Albumin/Globulin Ratio 1.2 (1.0-2.8) SARS-CoV-2 (PCR) Negative (Negative) Influenza A (RT-PCR) Flu a negative (NEGATIVE) Influenza B (RT-PCR) Flu b negative (NEGATIVE) RSV (PCR) Negative (Negative) MDM Narrative Medical decision making narrative: CC: Severe headache Complicating co-morbidities: Bipolar disorder, diabetes, hyperlipidemia, sleep apnea, generalized anxiety disorder, continued tobacco/vaping use Data collected from: patient Medical records reviewed: Primary care notes from July 24 and July 15 are reviewed Differential considered: Migraine, infection, intracranial hemorrhage, tension headache, aneurysmal/herald headache Exam documented above, pertinent findings include: Appears to be in pain but is not photophobic or sensitive to smells. Exam is nonlocalizing Lab Test results independently reviewed as above. Pertinent findings: Independently reviewed EKG: Imaging studies independently reviewed: Consultations: Treatments: Re-evaluations: Discussion: 48-year-old woman with severe headache increasing over 3 days. Questionable history of migraine but no headache for the last 15 years. Mild head trauma the end of May. Possible viral syndrome considered. Given the fact that the headache is so severe she has not had a headache and 15 years we will proceed with CT scan and blood work while treating for migraine 08/07/24 Dr. Ramírez: Patient signed out to myself by Dr. Dalton. Patient is seen and evaluated by myself. Patient presents with complaint of headache she states it has been most bothersome in the past 3 days but has been having headaches on and off lately. She does note a history of migraines but 15 years ago states she was on Topamax for it but it made her very emotionally labile and stopped it. She is nontoxic, well-appearing denies any other acute neurologic changes. Did note her mother of an aneurysm in her 40s. Non-con head CT is negative labs do not show any major changes, COVID/influenza/RSV is negative. Discussed CT angio head and neck for the patient based on her family history, she notes an allergy to contrast but states it is nausea and vomiting no other anaphylaxis or allergic symptoms. She did received dexamethasone and Benadryl here in the department. She states headache is mildly improved but still bothersome so was given additional dose of pain medication. CT angio head and neck is negative. Patient does not have any other red flag symptoms. Discharge Plan Departure Patient Disposition: Home Clinical Impression: Headache Instructions: DI for Headache Activity Restrictions/Additional Instructions: Follow up for recheck. Your imaging today does not show any aneurysms or changes to the vessels of your brain. You can take ondansetron 1 tablet every 6 hours as needed for nausea. You can also take Fioricet as prescribed. Prescription sent to [facility] in [place] Please return for fevers, rapidly worsening headaches, new numbness, tingling or loss of sensation, Prescriptions: New bhgfvawrbe-uvixmwarrvgoo-inhf [Fioricet] 50-300-40 mg capsule 1 cap PO Q8H PRN (Reason: pain) Qty: 10 0RF ondansetron 4 mg tablet,disintegrating 4 mg PO Q6H PRN (Reason: nausea and vomiting) Qty: 10 0RF No Action metoclopramide HCl 10 mg tablet 10 mg PO 3XD famotidine 20 mg tablet 20 mg PO DAILY minoxidil 2.5 mg tablet 2.5 mg PO DAILY Patient Comments: [NO ORIGINAL SIG] phentermine 30 mg capsule 30 mg PO DAILY Qty: 30 2RF Rx Instructions: must administer 2 hours after breakfast metformin 1,000 mg tablet 1,000 mg PO BID Qty: 180 3RF nitrofurantoin macrocrystal 100 mg capsule 100 mg PO BID Qty: 10 0RF Rx Instructions: must administer with a meal/food nicotine (polacrilex) 2 mg lozenge 2 mg buccal Q2-4H PRN methocarbamol 500 mg tablet 500 mg PO TID PRN (Reason: muscle spasm) Qty: 90 1RF trazodone 150 mg tablet 150 mg PO BEDTIME PRN (Reason: insomnia) Qty: 90 2RF clonazepam 2 mg tablet 2 mg PO BID Qty: 60 1RF atomoxetine 40 mg capsule 40 mg PO BID Qty: 60 2RF guanfacine 1 mg tablet 1 mg PO BID Qty: 60 2RF oxcarbazepine 300 mg tablet 300 mg PO .COMPLEX Qty: 90 3RF Rx Instructions: 300 mg orally once in AM and 2 tabs in PM (DME) pen needle, diabetic [Aqinject Pen Needle] 32 gauge x 5/32 needle See Rx Instructions .Route Qty: 1200 3RF Rx Instructions: use to inject insulin 4-6 times a day as needed. aripiprazole [Abilify] 15 mg tablet 15 mg PO DAILY Qty: 30 11RF (DME) Dexcom G7 Seed Cleaning Machine Operator Misc See Rx Instructions .Route Qty: 1 0RF Rx Instructions: As directed (DME) Dexcom G7 Sensor Device See Rx Instructions .Route Qty: 9 6RF Rx Instructions: As directed (DME) lancets [FreeStyle Lancets] 28 gauge misc See Rx Instructions .Route Qty: 100 11RF Rx Instructions: use to check blood glucose three times a day. insulin lispro [Admelog SoloStar U-100 Insulin] 100 unit/mL insulin pen 8 unit SUBCUT TID Qty: 15 3RF valacyclovir 500 mg tablet 500 mg PO DAILY Qty: 90 3RF gabapentin 400 mg capsule 400 mg PO TID PRN (Reason: chronic back pain) Qty: 90 1RF Januvia 50 mg tablet 50 mg PO DAILY Qty: 90 3RF atorvastatin 40 mg tablet 40 mg PO DAILY Qty: 90 0RF insulin glargine [Lantus Solostar U-100 Insulin] 100 unit/mL (3 mL) insulin pen 60 unit SUBCUT QPM Qty: 15 3RF (DME) Dexcom G6 Sensor Device See Rx Instructions .Route Qty: 3 6RF Rx Instructions: USE 1 SENSOR EVERY 10 DAYS (DME) Dexcom G6 Transmitter Device See Rx Instructions .Route Qty: 1 0RF Rx Instructions: As directed finasteride 5 mg tablet 5 mg PO DAILY Patient Comments: [NO ORIGINAL SIG] nystatin 100,000 unit/gram powder 1 applic topical BID Qty: 60 3RF fosfomycin tromethamine 3 gram packet 3 g PO ONCE Qty: 1 0RF fluconazole 150 mg tablet 150 mg PO DAILY Qty: 32 0RF Rx Instructions: take one tablet by mouth daily for 7 days, then one tab WEEKLY thereafter polyethylene glycol 3350 [Miralax] 17 gram/dose powder 17 g PO PRN PRN (Reason: Constipation) Referrals: Lavell Silva MD [Primary Care Provider, Family Practice] Stand Alone Forms: Patient Portal/API
[2024-08-07 07:11] LABS: Add Manual Diff / Slide Review NO; Basophils Absolute Auto 100 /uL (0-100); Basophils Percent Auto 1.1 % (0-2); Eosinophils Absolute Auto 100 /uL (0-450); Eosinophils Percent Auto 1.6 % (2-4); Hematocrit 37.3 % (36-46); Hemoglobin 12.8 g/dL (12.0-16.0); Lymphocytes Absolute Auto 2000 /uL (1100-4500); Lymphocytes Percent Auto 23.2 % (25-40); Mean Corpuscular HGB Conc 34.3 % (30-36); Mean Corpuscular Hemoglobin 28.9 PG (26-34); Mean Corpuscular Volume 84.1 fL (80-100); Monocytes Absolute Auto 1000 /uL (0-900); Monocytes Percent Auto 12.2 % (3-14); Neutrophils Absolute Auto 5300 /uL (1500-7000); Neutrophils Percent Auto 61.9 % (50-75); Platelet Count 223 X10^3/uL (150-400); Red Blood Cell Count 4.43 X10^6/uL (4.0-5.2); Red Cell Distribution Width 14.6 % (11.6-14.8); White Blood Cell Count 8.5 X10^3/uL (4.5-11.0)
--- NOTE | 2024-08-07 07:14 | PC.NURSE ---
Pt reports her Dad will drive her home
[2024-08-07 07:17] LABS: Alanine Aminotransferase 37 IU/L (<35); Albumin 3.7 g/dL (3.5-5.0); Albumin Globulin Ratio 1.2 (1.0-2.8); Alkaline Phosphatase 89 U/L (38-126); Aspartate Aminotransferase 39 IU/L (14-36); BUN Creatinine Ratio 22.4 (6-22); Bilirubin Total 0.5 mg/dL (0.2-1.3); Blood Urea Nitrogen 11 mg/dL (7-17); Calcium 8.7 mg/dL (8.4-10.2); Carbon Dioxide 21 mmol/L (22-32); Chloride 104 mmol/L (98-107); Estimated Glomerular Filt Rate > 60 mL/min (>60); Globulin 3.1 g/dL (1.7-4.1); Glucose 172 mg/dL (70-99); HEMOLYSIS 40 (0-50); Potassium 3.6 mmol/L (3.4-5.1); Sodium 135 mmol/L (137-145); Total Protein 6.8 g/dL (6.3-8.2)
[2024-08-07] MEDS: SODIUM CHLORIDE 0.9% 1,000 ML 1000 ML IV (07:18)
[2024-08-07] MEDS: KETOROLAC 30 MG/ML VIAL 15 MG IV (07:20)
[2024-08-07] MEDS: diphenhydrAMINE 50 MG/ML VIAL 25 MG IV (07:21)
[2024-08-07] MEDS: PROCHLORPERAZINE 10 MG/2 ML VIAL IV (07:24)
[2024-08-07] MEDS: DEXAMETHASONE 10 MG/ML VIAL IV (07:29)
--- NOTE | 2024-08-07 07:39 | PC.NURSE ---
pt reports headache. pt unable to pinpoint specific spot where headache is bothering pt. she says sometimes she feels it all over. Pt reports she has tried otc pain medications with relief. pt reports she has no flashes in vision. however, pt reports blurry vision. gcs 15. speech clear.
[2024-08-07 08:26] LABS: Influenza A - CEPHEID Flu A NEGATIVE (NEGATIVE); Influenza B - CEPHEID Flu B NEGATIVE (NEGATIVE); Respiratory Syncytial Virus Negative (Negative)
[2024-08-07 08:36] LABS: COVID-19 CEPHEID 4-PLEX PCR Negative (Negative)
--- NOTE | 2024-08-07 08:37 | DI.CT.S_ITS ---
PROCEDURE: CT ANGIO HEAD AND NECK INDICATIONS: h[place], remote hx migraines, mom aneurysm in 40s TECHNIQUE: After the administration of intravenous contrast, 1 mm thick sections acquired from the aortic arch through the [place]. 3-dimensional bvyfbev-jrewaafwo-sdcadvrlfy (MIP) and/or volume rendering reformats were acquired of the central intracranial vasculature and neck separately. For radiation dose reduction, the following was used: automated exposure control, adjustment of mA and/or kV according to patient size. COMPARISON: None. FINDINGS: Image quality: Diagnostic. Cerebral CT Angiogram: Internal carotid arteries: No acute findings. Intracranial ICA are patent with no significant stenosis. No occlusion. No aneurysm. Anterior cerebral arteries: Unremarkable. No significant stenosis. No occlusion. No aneurysm. Middle cerebral arteries: Unremarkable. No significant stenosis. No occlusion. No aneurysm. Posterior cerebral arteries: Unremarkable. No significant stenosis. No occlusion. No aneurysm. Basilar artery: Unremarkable. No significant stenosis. No occlusion. No aneurysm. Vertebral arteries: Unremarkable as visualized. Dural venous sinuses: Unremarkable given phase of enhancement. Other: Arterial phase appearance of the brain parenchyma is unremarkable. Neck CT Angiogram: Internal carotid arteries: Unremarkable. No significant stenosis. No dissection or occlusion. Common carotid arteries: Unremarkable. No significant stenosis. No dissection or occlusion. External carotid arteries: Unremarkable. No occlusion. Vertebral arteries: Unremarkable. No significant stenosis. No dissection or occlusion. Aortic Arch and Mediastinum: Partially visualized aortic arch unremarkable without evidence of aneurysm. Origins of the great vessels unremarkable. Other: Arterial phase soft tissues of the neck and chest are unremarkable. IMPRESSION: 1. No significant intracranial arterial abnormality is seen. 2. No significant abnormality is seen within the arteries of the neck. Any quantitative measurements of stenosis were performed using NASCET criteria. Dictated by: Tre Blue M.D. on 08/07/2024 at 9:28 Approved by: Tre Blue M.D. on 08/07/2024 at 9:30
[2024-08-07] MEDS: MORPHINE 4 MG/ML INJ IV (09:06)
== END 2024-08-07 10:00 | disposition home or self-care (01) ==
PROVIDERS: Emergency Medicine; Emergency Provider Emergency Medicine; Family Provider Family Medicine; PCP Family Medicine
DX: R51.9 Headache, unspecified (principal); Z82.49 Family history of ischemic heart disease and other diseases of the circulatory system
CPT/HCPCS: 0241U; 36415; 70450; 70496; 70498; 80053; 85025; 96361; 96374; 96375; 99284; J0780; J1100; J1200; J1885; J2270; Q9967

== ENCOUNTER 2024-09-22 23:13 | Emergency (ER) | payer OTHER, SELFPAY ==
[2024-09-22 23:22] VITALS: BP 143/99; PULSE 117; RESP 18; TEMP 37.4; O2SAT 98; BMI 41.1
--- NOTE | 2024-09-23 | ED.HA ---
HPI - Headache General Chief Complaint: Headache Stated Complaint: migraine- light sensitive Time Seen by Provider: 09/22/24 23:47 Mode of arrival: Ambulatory History of Present Illness HPI Narrative: 49-year-old female patient with a history of type 2 diabetes, dyslipidemia, CAD, JUDIT, GERD, PTSD/panic/anxiety/bipolar disorder and chronic headaches which have been labeled with ?migraines. ?. She complains now of a bioccipital headache starting earlier this evening with nausea but no vomiting and mild photophobia. This is typical of her headaches. She filled her Fioricet prescription and had minimal relief. Related Data Home Medications ?Medication ?Instructions ?Recorded ?Confirmed polyethylene glycol 3350 17 17 g PO PRN PRN Constipation 09/27/23 09/22/24 gram/dose oral powder (Miralax) famotidine 20 mg tablet 20 mg PO DAILY 03/27/24 09/22/24 minoxidil 2.5 mg tablet 2.5 mg PO DAILY 03/27/24 09/22/24 finasteride 5 mg tablet 5 mg PO DAILY 04/15/24 09/22/24 nicotine (polacrilex) 2 mg buccal 2 mg buccal Q2-4H PRN nicotine 04/15/24 09/22/24 lozenge cravings Previous Rx's ?Medication ?Instructions ?Recorded pen needle, diabetic 32 gauge x #1,200 ea 11/20/22 (Aqinject Pen Needle) aripiprazole 15 mg tablet (Abilify) 15 mg PO DAILY #30 tabs 11/18/23 nystatin 100,000 unit/gram topical 1 applic topical BID #60 grams 11/26/23 powder blood-glucose,aircraft structural repair mechanic,cont #1 ea 04/03/24 (Dexcom G7 Elevator Operator Freight) lancets 28 gauge (FreeStyle #100 ea 04/03/24 Lancets) valacyclovir 500 mg tablet 500 mg PO DAILY #90 tabs 04/29/24 gabapentin 400 mg capsule 400 mg PO TID PRN chronic back 06/01/24 pain #90 caps metformin 1,000 mg tablet 1,000 mg PO BID #180 tabs 06/12/24 sitagliptin phosphate 50 mg tablet 50 mg PO DAILY #90 tabs 06/23/24 (Januvia) atorvastatin 40 mg tablet 40 mg PO DAILY #90 tabs 05/09/25 fluconazole 150 mg tablet 150 mg PO DAILY #32 tabs 07/07/24 oxcarbazepine 300 mg tablet 300 mg PO .COMPLEX #90 tabs 07/10/24 insulin glargine 100 unit/mL (3 60 unit (0.6 mL) SUBCUT QPM #15 mL 07/14/24 mL) subcutaneous pen (Lantus Solostar U-100 Insulin) methocarbamol 500 mg tablet 500 mg PO TID PRN muscle spasm #90 07/24/24 tabs blood-glucose sensor (Dexcom G6 #3 ea 07/28/24 Sensor device) blood-glucose transmitter (Dexcom #1 ea 07/28/24 G6 Transmitter device) ondansetron 4 mg disintegrating 4 mg PO Q6H PRN nausea and 08/07/24 tablet vomiting #10 tabs clonazepam 2 mg tablet 2 mg PO BID panic disorder #60 tabs 08/21/24 viloxazine 200 mg capsule,extended 200 mg PO DAILY #30 caps 08/21/24 release 24 hr (Qelbree) trazodone 150 mg tablet 150 mg PO BEDTIME PRN insomnia #90 08/24/24 tabs insulin lispro 100 unit/mL 8 unit (0.08 mL) SUBCUT TID #15 mL 09/16/24 subcutaneous pen (Admelog SoloStar U-100 Insulin lispro) [id number]-iltgyfnblifwa-wohjkmeq 1 cap PO Q8H PRN pain #10 caps 09/18/24 50 mg-300 mg-40 mg capsule (Fioricet) Allergies Allergy/AdvReac Type Severity Reaction Status Date / Time semaglutide (From Ozempic) Allergy Severe gastroparal Verified 09/22/24 23:18 ysis topiramate (From TOPAMAX) Allergy Unknown Confusion Verified 09/22/24 23:18 bupropion (From Wellbutrin) Allergy Confusion Verified 09/22/24 23:18 cephalexin (From Keflex) Allergy ITCHING Verified 09/22/24 23:18 Iodinated Contrast Media Allergy Vomiting Verified 09/22/24 23:18 sulfamethoxazole (From Allergy Swelling Verified 09/22/24 23:18 Bactrim) of Lip/Tongue/Throat trimethoprim (From Bactrim) Allergy Swelling Verified 09/22/24 23:18 of Lip/Tongue/Throat Review of Systems Review of Systems ROS Unobtainable: All systems reviewed & are unremarkable except as noted in HPI and below Eyes Eyes: Denies blind spots, Denies blurry vision and Denies change in vision ENT Ears, Nose, Mouth, and Throat: Denies neck pain, Denies sinus pain and Denies sinus pressure Cardiovascular Cardiovascular: Denies chest pain and Denies dyspnea Respiratory Respiratory: Denies cough and Denies dyspnea Musculoskeletal Musculoskeletal: Denies neck pain Patient History Medical History Vaginal discharge Nicotine addiction ADHD (attention deficit hyperactivity disorder) PTSD (post-traumatic stress disorder) Panic disorder with agoraphobia Presence of insulin pump MUSTAPHA (generalized anxiety disorder) Abnormal uterine bleeding (AUB) Chronic candidiasis of vulva and vagina JUDIT (obstructive sleep apnea) CAD (coronary artery disease) Mixed hyperlipidemia Tobacco dependence Type 2 diabetes mellitus with hyperglycemia, with long-term current use of insulin Bipolar 2 disorder Morbid obesity Surgical History History of robot-assisted laparoscopic hysterectomy (05/22/24) Status post cholecystectomy Status post tubal ligation History of tonsillectomy Status post delivery Status post delivery Status post delivery Family History Father Heart disease Hypertension Heart attack Mother Mental health problem Hypertension Social History household members: family Smoking Status: Current every day smoker alcohol intake: never Smoking Status: Current every day smoker tobacco type: cigarettes and vaping alcohol intake frequency: other Exam Initial Vital Signs Initial Vital Signs: Vital Signs Temperature 99.3 F 09/22/24 23:22 Pulse Rate 117 H 09/22/24 23:22 Respiratory Rate 18 09/22/24 23:22 Blood Pressure 143/99 H 09/22/24 23:22 Pulse Oximetry 98 09/22/24 23:22 Oxygen Delivery Method Room Air 09/22/24 23:22 Const General: cooperative, healthy appearing, comfortable, well developed and No acute distress HENMT Head: normal to inspection and normocephalic HENMT Other: Palpation/massage of the area of pain produces relief to some degree. Eyes General: Yes appearance normal, both eyes and all related structures Pupils: PERRL EOM: EOM intact bilaterally Neck Neck: normal visual inspection and full ROM Resp Effort & Inspection: normal respiratory effort Neuro General: patient alert, patient awake, patient oriented x3 and no focal motor deficits Course Course Course Narrative: 00:30 Patient re-evaluated after receiving injection medication. She feels quite a bit better. Would like to go home. This appears to be more of a tension headache than a migraine Orders Ordered: Discontinued Medications Diphenhydramine HCl (Diphenhydramine 50 Mg/Ml Vial) 50 mg IM NOW ONE Stop: 09/22/24 23:59 Last Admin: 09/23/24 00:15 Dose: 50 mg Ketorolac Tromethamine (Ketorolac 30 Mg/Ml Vial) 30 mg IM NOW ONE Stop: 09/22/24 23:54 Last Admin: 09/23/24 00:14 Dose: 30 mg Vital Signs Vital signs: Vital Signs - 8 hr 09/22/24 23:22 Temperature 99.3 F Pulse Rate 117 H Respiratory Rate 18 Blood Pressure 143/99 H Pulse Oximetry 98 Oxygen Delivery Method Room Air MDM - Headache MDM Narrative Medical decision making narrative: Occipital headache with minimal photophobia. Responsive to ketorolac and diphenhydramine. I believe this is probably a tension headache. Less likely a migraine variant. She has improved and needs no further workup or management in the ER. She will follow up with her doctor. She has a prescription for Fioricet as needed from her doctor. Discharge Plan Departure Patient Disposition: Home Clinical Impression: Headache Instructions: DI for Migraine, DI for Headache Activity Restrictions/Additional Instructions: Cold or warm packs. Cwog-ywl-xdsvjhp medicine and prescription medicine for headaches. Follow up with your doctor to discuss headache management. Return to the ER if worse Prescriptions: No Action famotidine 20 mg tablet 20 mg PO DAILY minoxidil 2.5 mg tablet 2.5 mg PO DAILY Patient Comments: [NO ORIGINAL SIG] metformin 1,000 mg tablet 1,000 mg PO BID Qty: 180 3RF nicotine (polacrilex) 2 mg lozenge 2 mg buccal Q2-4H PRN (Reason: nicotine cravings) iikwthorav-gkcsoiatmxsam-kbwo [Fioricet] 50-300-40 mg capsule 1 cap PO Q8H PRN (Reason: pain) Qty: 10 0RF methocarbamol 500 mg tablet 500 mg PO TID PRN (Reason: muscle spasm) Qty: 90 1RF oxcarbazepine 300 mg tablet 300 mg PO .COMPLEX Qty: 90 3RF Rx Instructions: 300 mg orally once in AM and 2 tabs in PM Qelbree 200 mg capsule,extended release 24hr 200 mg PO DAILY Qty: 30 2RF clonazepam 2 mg tablet 2 mg PO BID Qty: 60 1RF (DME) pen needle, diabetic [Aqinject Pen Needle] 32 gauge x 5/32 needle See Rx Instructions .Route Qty: 1200 3RF Rx Instructions: use to inject insulin 4-6 times a day as needed. aripiprazole [Abilify] 15 mg tablet 15 mg PO DAILY Qty: 30 11RF (DME) Dexcom G7 Elevator Operator Freight Misc See Rx Instructions .Route Qty: 1 0RF Rx Instructions: As directed (DME) lancets [FreeStyle Lancets] 28 gauge misc See Rx Instructions .Route Qty: 100 11RF Rx Instructions: use to check blood glucose three times a day. valacyclovir 500 mg tablet 500 mg PO DAILY Qty: 90 3RF gabapentin 400 mg capsule 400 mg PO TID PRN (Reason: chronic back pain) Qty: 90 1RF Januvia 50 mg tablet 50 mg PO DAILY Qty: 90 3RF atorvastatin 40 mg tablet 40 mg PO DAILY Qty: 90 0RF insulin glargine [Lantus Solostar U-100 Insulin] 100 unit/mL (3 mL) insulin pen 60 unit SUBCUT QPM Qty: 15 3RF (DME) Dexcom G6 Sensor Device See Rx Instructions .Route Qty: 3 6RF Rx Instructions: USE 1 SENSOR EVERY 10 DAYS (DME) Dexcom G6 Transmitter Device See Rx Instructions .Route Qty: 1 0RF Rx Instructions: As directed trazodone 150 mg tablet 150 mg PO BEDTIME PRN (Reason: insomnia) Qty: 90 0RF insulin lispro [Admelog SoloStar U-100 Insulin] 100 unit/mL insulin pen 8 unit SUBCUT TID Qty: 15 3RF finasteride 5 mg tablet 5 mg PO DAILY Patient Comments: [NO ORIGINAL SIG] nystatin 100,000 unit/gram powder 1 applic topical BID Qty: 60 3RF fluconazole 150 mg tablet 150 mg PO DAILY Qty: 32 0RF Rx Instructions: take one tablet by mouth daily for 7 days, then one tab WEEKLY thereafter polyethylene glycol 3350 [Miralax] 17 gram/dose powder 17 g PO PRN PRN (Reason: Constipation) ondansetron 4 mg tablet,disintegrating 4 mg PO Q6H PRN (Reason: nausea and vomiting) Qty: 10 0RF Referrals: Lavell Silva MD [Primary Care Provider, Family Practice] Stand Alone Forms: Patient Portal/API
[2024-09-23] MEDS: KETOROLAC 30 MG/ML VIAL IM (00:14)
[2024-09-23] MEDS: diphenhydrAMINE 50 MG/ML VIAL IM (00:15)
[2024-09-23 01:00] VITALS: BP 117/60; PULSE 108; RESP 16; O2SAT 98
== END 2024-09-23 01:01 | disposition home or self-care (01) ==
PROVIDERS: Emergency Provider Emergency Medicine; PCP Family Medicine
DX: R51.9 Headache, unspecified (principal)
CPT/HCPCS: 96372; 99283; J1200; J1885

== ENCOUNTER 2024-10-03 05:32 | Emergency (ER) | payer OTHER, SELFPAY ==
[2024-10-03 05:41] VITALS: BP 138/83; PULSE 104; O2SAT 98
[2024-10-03 05:44] VITALS: BP 138/83; PULSE 101; RESP 24; TEMP 36.3; O2SAT 97; BMI 42.7
--- NOTE | 2024-10-03 05:53 | ED.ABDPAIN ---
HPI - Abdominal Pain General Chief Complaint: Abdominal Pain Stated Complaint: Stomach pain, bloating Time Seen by Provider: 10/03/24 05:53 Source: patient Mode of arrival: Ambulatory History of Present Illness HPI narrative: 49-year-old female patient with a history of type 2 diabetes, dyslipidemia, migraines and bipolar disorder/anxiety/PTSD with ADHD. She complains of upper abdominal pain with bloating and nausea that woke her up 3 hours ago. Patient has a history of cholecystectomy. Related Data Home Medications ?Medication ?Instructions ?Recorded ?Confirmed polyethylene glycol 3350 17 17 g PO PRN PRN Constipation 09/27/23 09/27/24 gram/dose oral powder (Miralax) famotidine 20 mg tablet 20 mg PO DAILY 03/27/24 09/27/24 minoxidil 2.5 mg tablet 2.5 mg PO DAILY 03/27/24 09/27/24 finasteride 5 mg tablet 5 mg PO DAILY 04/15/24 09/27/24 nicotine (polacrilex) 2 mg buccal 2 mg buccal Q2-4H PRN nicotine 04/15/24 09/27/24 lozenge cravings Previous Rx's ?Medication ?Instructions ?Recorded pen needle, diabetic 32 gauge x #1,200 ea 11/20/22 (Aqinject Pen Needle) aripiprazole 15 mg tablet (Abilify) 15 mg PO DAILY #30 tabs 11/18/23 nystatin 100,000 unit/gram topical 1 applic topical BID #60 grams 11/26/23 powder 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-glucose,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 systems 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,cont #1 ea 04/03/24 (Dexcom G7 Electronic Imager) lancets 28 gauge (FreeStyle #100 ea 04/03/24 Lancets) valacyclovir 500 mg tablet 500 mg PO DAILY #90 tabs 04/29/24 gabapentin 400 mg capsule 400 mg PO TID PRN chronic back 06/01/24 pain #90 caps metformin 1,000 mg tablet 1,000 mg PO BID #180 tabs 06/12/24 atorvastatin 40 mg tablet 40 mg PO DAILY #90 tabs 07/03/24 fluconazole 150 mg tablet 150 mg PO DAILY #32 tabs 07/07/24 oxcarbazepine 300 mg tablet 300 mg PO .COMPLEX #90 tabs 07/10/24 insulin glargine 100 unit/mL (3 60 unit (0.6 mL) SUBCUT QPM #15 mL 07/14/24 mL) subcutaneous pen (Lantus Solostar U-100 Insulin) methocarbamol 500 mg tablet 500 mg PO TID PRN muscle spasm #90 07/24/24 tabs blood-glucose sensor (Dexcom G6 #3 ea 07/28/24 Sensor device) blood-glucose transmitter (Dexcom #1 ea 07/28/24 G6 Transmitter device) ondansetron 4 mg disintegrating 4 mg PO Q6H PRN nausea and 08/07/24 tablet vomiting #10 tabs clonazepam 2 mg tablet 2 mg PO BID panic disorder #60 tabs 08/21/24 viloxazine 200 mg capsule,extended 200 mg PO DAILY #30 caps 08/21/24 release 24 hr (Qelbree) trazodone 150 mg tablet 150 mg PO BEDTIME PRN insomnia #90 08/24/24 tabs insulin lispro 100 unit/mL 8 unit (0.08 mL) SUBCUT TID #15 mL 09/16/24 subcutaneous pen (Admelog SoloStar U-100 Insulin lispro) lmyxaajkws-oyxtjvnoztkie-nrvncjcr 1 cap PO Q8H PRN pain #10 caps 09/18/24 50 mg-300 mg-40 mg capsule (Fioricet) sitagliptin 25 mg tablet 50 mg (2 x 25 mg) PO DAILY #180 10/01/24 tabs Allergies Allergy/AdvReac Type Severity Reaction Status Date / Time semaglutide (From Ozempic) Allergy Severe gastroparal Verified 10/03/24 05:44 ysis topiramate (From TOPAMAX) Allergy Unknown Confusion Verified 10/03/24 05:44 bupropion (From Wellbutrin) Allergy Confusion Verified 10/03/24 05:44 cephalexin (From Keflex) Allergy ITCHING Verified 10/03/24 05:44 Iodinated Contrast Media Allergy Vomiting Verified 10/03/24 05:44 sulfamethoxazole (From Allergy Swelling Verified 10/03/24 05:44 Bactrim) of Lip/Tongue/Throat trimethoprim (From Bactrim) Allergy Swelling Verified 10/03/24 05:44 of Lip/Tongue/Throat Review of Systems Review of Systems ROS Unobtainable: All systems reviewed & are unremarkable except as noted in HPI and below Cardiovascular Cardiovascular: Denies chest pain and Denies dyspnea Respiratory Respiratory: Denies dyspnea Gastrointestinal Gastrointestinal: Reports as per HPI Patient History Medical History Vaginal discharge Nicotine addiction ADHD (attention deficit hyperactivity disorder) PTSD (post-traumatic stress disorder) Panic disorder with agoraphobia Presence of insulin pump MUSTAPHA (generalized anxiety disorder) Abnormal uterine bleeding (AUB) Chronic candidiasis of vulva and vagina JUDIT (obstructive sleep apnea) CAD (coronary artery disease) Mixed hyperlipidemia Tobacco dependence Type 2 diabetes mellitus with hyperglycemia, with long-term current use of insulin Bipolar 2 disorder Morbid obesity Surgical History History of robot-assisted laparoscopic hysterectomy (05/22/24) Status post cholecystectomy Status post tubal ligation History of tonsillectomy Status post delivery Status post delivery Status post delivery Family History Father Heart disease Hypertension Heart attack Mother Mental health problem Hypertension Social History household members: family Smoking Status: Current every day smoker alcohol intake: never Smoking Status: Current every day smoker tobacco type: cigarettes and vaping alcohol intake frequency: other Exam Narrative Exam Narrative: General: Alert and conversant. Mild distress Appears well nourished and well hydrated Eyes: PERRLA EOMI conjunctiva clear Lungs: Clear to auscultation with good air movement. No wheezing, rales or rhonchi. No respiratory distress Cardiac: Regular rate and rhythm with no appreciable murmur or gallop Abdomen: Soft, mild epigastric tenderness with no distention or masses. Normal bowel sounds. No rebound or guarding Musculoskeletal: Exam of the extremities, axial spine and ribcage reveals no deformity, bony tenderness or swelling. Range of motion intact Neuro: Alert and oriented. Cranial nerves, motor, sensory and cerebellar all grossly intact. No focal deficit Skin: Warm and normal color. No rashes Psychological: Normal affect and interaction. No evidence of delusion or psychosis. Normal mood. Initial Vital Signs Initial Vital Signs: Vital Signs Temperature 97.4 F L 10/03/24 05:44 Pulse Rate 101 H 10/03/24 05:44 Respiratory Rate 24 10/03/24 05:44 Blood Pressure 138/83 08/09/25 05:44 Pulse Oximetry 97 10/03/24 05:44 Oxygen Delivery Method Room Air 10/03/24 05:44 Course Orders Ordered: ED Orders 10/03/24 05:43 Ictotest Urine Stat 10/03/24 05:44 Urine Microscopic Stat Discontinued Medications Al Hydrox/Mg Hydrox/Simethicone 30 ml/ Lidocaine HCl 15 ml 0 ml PO NOW ONE Stop: 10/03/24 05:59 Last Admin: 10/03/24 06:04 Dose: 45 ml Vital Signs Vital signs: Vital Signs - 8 hr 10/03/24 05:44 Temperature 97.4 F L Pulse Rate 101 H Respiratory Rate 24 Blood Pressure 138/83 Pulse Oximetry 97 Oxygen Delivery Method Room Air MDM - Abdominal Pain Lab Data Labs: Lab Results 10/02/24 Range/Units 17:42 Ur Bilirubin Confirm Negative (Negative) Urine RBC 1-5/hpf (0-5/HPF) Urine WBC None seen (0-5/HPF) Ur Squamous Epith Cells None seen D (0-5/HPF) Calcium Oxalate Crystal Few H Urine Bacteria Occasional (0-1) (None) Ur Culture Indicated? Cult not indicated Vol Urine Centrifuged Low vol <10ml unspun A Point of care testing: Urine Dip Bedside Urine Glucose 500 mg/dl Bedside Urine Bilirubin + 1 Bedside Urine Ketone + 15 Urine Specific [place] 1.030 Bedside Urine Occult Blood - Negative Bedside Urine pH 6.0 Bedside Urine Protein +/- 15 Bedside Urine Urobilinogen - Negative Bedside Urine Nitrite - Negative Bedside Urine Leukocytes - Negative Esterase MDM Narrative Medical decision making narrative: Improved with a GI cocktail including simethicone. This appears to be excess gas/bloating or possible gastritis. I do not believe the patient needs a further workup in the ER. She is feeling better and would like to go home and try myxc-urj-kaqpgvn medicine. Follow up with primary care as needed. Return to the ER if worse Discharge Plan Departure Patient Disposition: Home Clinical Impression: Abdominal bloating Instructions: How to Avoid Gas, Intestinal Gas (Alternative Therapy) Activity Restrictions/Additional Instructions: May try simethicone for gas or famotidine for acid reduction. Monitor symptoms and follow up with your doctor. Return to the ER if worse Prescriptions: No Action famotidine 20 mg tablet 20 mg PO DAILY minoxidil 2.5 mg tablet 2.5 mg PO DAILY Patient Comments: [NO ORIGINAL SIG] metformin 1,000 mg tablet 1,000 mg PO BID Qty: 180 3RF nicotine (polacrilex) 2 mg lozenge 2 mg buccal Q2-4H PRN (Reason: nicotine cravings) lqhpucgvtw-ipziiibyyaqwo-rkvy [Fioricet] 50-300-40 mg capsule 1 cap PO Q8H PRN (Reason: pain) Qty: 10 0RF methocarbamol 500 mg tablet 500 mg PO TID PRN (Reason: muscle spasm) Qty: 90 1RF oxcarbazepine 300 mg tablet 300 mg PO .COMPLEX Qty: 90 3RF Rx Instructions: 300 mg orally once in AM and 2 tabs in PM Qelbree 200 mg capsule,extended release 24hr 200 mg PO DAILY Qty: 30 2RF clonazepam 2 mg tablet 2 mg PO BID Qty: 60 1RF (DME) pen needle, diabetic [Aqinject Pen Needle] 32 gauge x 5/32 needle See Rx Instructions .Route Qty: 1200 3RF Rx Instructions: use to inject insulin 4-6 times a day as needed. aripiprazole [Abilify] 15 mg tablet 15 mg PO DAILY Qty: 30 11RF (DME) Dexcom G7 Electronic Imager Misc See Rx Instructions .Route Qty: 1 0RF Rx Instructions: As directed (DME) lancets [FreeStyle Lancets] 28 gauge misc See Rx Instructions .Route Qty: 100 11RF Rx Instructions: use to check blood glucose three times a day. valacyclovir 500 mg tablet 500 mg PO DAILY Qty: 90 3RF gabapentin 400 mg capsule 400 mg PO TID PRN (Reason: chronic back pain) Qty: 90 1RF atorvastatin 40 mg tablet 40 mg PO DAILY Qty: 90 0RF insulin glargine [Lantus Solostar U-100 Insulin] 100 unit/mL (3 mL) insulin pen 60 unit SUBCUT QPM Qty: 15 3RF (DME) Dexcom G6 Sensor Device See Rx Instructions .Route Qty: 3 6RF Rx Instructions: USE 1 SENSOR EVERY 10 DAYS (DME) Dexcom G6 Transmitter Device See Rx Instructions .Route Qty: 1 0RF Rx Instructions: As directed trazodone 150 mg tablet 150 mg PO BEDTIME PRN (Reason: insomnia) Qty: 90 0RF insulin lispro [Admelog SoloStar U-100 Insulin] 100 unit/mL insulin pen 8 unit SUBCUT TID Qty: 15 3RF sitagliptin 25 mg tablet 50 mg PO DAILY Qty: 180 2RF finasteride 5 mg tablet 5 mg PO DAILY Patient Comments: [NO ORIGINAL SIG] nystatin 100,000 unit/gram powder 1 applic topical BID Qty: 60 3RF fluconazole 150 mg tablet 150 mg PO DAILY Qty: 32 0RF Rx Instructions: take one tablet by mouth daily for 7 days, then one tab WEEKLY thereafter polyethylene glycol 3350 [Miralax] 17 gram/dose powder 17 g PO PRN PRN (Reason: Constipation) ondansetron 4 mg tablet,disintegrating 4 mg PO Q6H PRN (Reason: nausea and vomiting) Qty: 10 0RF Referrals: Lavell Silva MD [Primary Care Provider, Family Practice] Stand Alone Forms: Patient Portal/API
[2024-10-03 06:00] VITALS: BP 131/74; PULSE 90; O2SAT 97
[2024-10-03] MEDS: MAG HYDROX/ALUMINUM/SIMETH SUS 30 ML, LIDOCAINE VISCOUS 2% 15 ML PO (06:04)
[2024-10-03 06:25] LABS: Ictotest Urine Negative (Negative)
[2024-10-03 06:26] LABS: Culture Indicated Urine Cult Not Indicated
[2024-10-03 06:30] VITALS: BP 106/57; PULSE 76; RESP 22; O2SAT 97
== END 2024-10-03 06:41 | disposition home or self-care (01) ==
PROVIDERS: Emergency Provider Emergency Medicine; PCP Family Medicine
DX: R14.0 Abdominal distension (gaseous) (principal)
CPT/HCPCS: 81003; 81015; 99283

== ENCOUNTER → 2024-11-06 13:52 | Outpatient (CLI) | payer OTHER, SELFPAY ==
[2024-11-06 15:10] LABS: Hematocrit 39.8 % (36-46); Hemoglobin 13.6 g/dL (12.0-16.0); Mean Corpuscular HGB Conc 34.0 % (30-36); Mean Corpuscular Hemoglobin 28.3 PG (26-34); Mean Corpuscular Volume 83.2 fL (80-100); Platelet Count 253 X10^3/uL (150-400)
[2024-11-06 15:28] LABS: Hemoglobin A1C% w Est Avg Glu 7.4 % (4.0-6.0)
[2024-11-06 15:31] LABS: Microalbumi Creatinin Ratio Ur 17.0 ug/mg CR (<30)
[2024-11-06 15:32] LABS: Alanine Aminotransferase 25 IU/L (<35); Albumin 4.2 g/dL (3.5-5.0); Albumin Globulin Ratio 1.7 (1.0-2.8); Alkaline Phosphatase 118 U/L (38-126); Blood Urea Nitrogen 12 mg/dL (7-17); Calcium 9.7 mg/dL (8.4-10.2); Carbon Dioxide 22 mmol/L (22-32); Chloride 100 mmol/L (98-107); Cholesterol 150 mg/dL (140-199); Estimated Glomerular Filt Rate > 60 mL/min (>60); Globulin 2.5 g/dL (1.7-4.1); Glucose 229 mg/dL (70-99); HDL Cholesterol 49 mg/dL (40-60); HEMOLYSIS < 15 (0-50); Potassium 4.9 mmol/L (3.4-5.1); Sodium 135 mmol/L (137-145); Total Protein 6.7 g/dL (6.3-8.2); Triglycerides 315 mg/dL (35-150)
== END ==
PROVIDERS: PCP Family Medicine; Referring Provider Family Medicine; Visit Provider Family Medicine
DX: E11.65 Type 2 diabetes mellitus with hyperglycemia (principal); Z79.4 Long term (current) use of insulin
CPT/HCPCS: 36415; 80053; 80061; 82043; 82570; 83036; 85027

== ENCOUNTER 2024-11-16 20:02 | Emergency (ER) | payer OTHER, SELFPAY ==
--- NOTE | 2024-11-16 20:44 | PC.NURSE ---
This RN calls out for patient in waiting room. Patient not in waiting room.
== END 2024-11-16 21:17 | disposition left against medical advice (07) ==
PROVIDERS: Emergency Provider Emergency Medicine; PCP Family Medicine

== ENCOUNTER → 2024-11-18 06:51 | Outpatient (CLI) | payer OTHER, SELFPAY ==
--- NOTE | 2024-11-18 06:53 | DI.US.S_ITS ---
PROCEDURE: US PELVIC COMPLETE INDICATIONS: pelvic pain ovarian cyst TECHNIQUE: Real-time scanning was performed of the pelvic organs, with image documentation. Additional endovaginal scanning was necessary due to incomplete visualization of the adnexal and endometrial structures by transabdominal scanning. COMPARISON: [facility], CT, CT ABDOMEN PELVIS W CON, 10/07/2024, 0:02. FINDINGS: Uterus: Status post hysterectomy. Ovaries: Ovaries are not well visualized due to excessive bowel gas in the pelvis. No suspicious adnexal lesion is seen. Other: No pathologic free abdominal or pelvic fluid. IMPRESSION: Limited exam due to bowel gas. Ovaries are not visualized. Status post hysterectomy. Approved by: Aiden Franz M.D. on 11/18/2024 at 15:26
== END ==
LOC: US 06:52
PROVIDERS: PCP Family Medicine; Referring Provider Obstetrics & Gynecology; Visit Provider Obstetrics & Gynecology
DX: R10.2 Pelvic and perineal pain (principal); N83.209 Unspecified ovarian cyst, unspecified side; Z90.710 Acquired absence of both cervix and uterus
CPT/HCPCS: 76830; 76856

== ENCOUNTER 2024-12-29 23:32 | Emergency (ER) | payer OTHER, SELFPAY ==
[2024-12-29 23:37] VITALS: BP 141/89; PULSE 88; RESP 20; TEMP 36.9; O2SAT 99; BMI 43.4
--- NOTE | 2024-12-29 23:37 | DI.RAD.S_ITS ---
PROCEDURE: XR CHEST 1V
[2024-12-29 23:41] VITALS: PULSE 94; RESP 24
[2024-12-29 23:43] VITALS: BP 141/89; PULSE 91; O2SAT 99
--- NOTE | 2024-12-29 23:50 | ED_ITS ---
HPI - Arrhythmia/Palpitations
--- NOTE | 2024-12-29 23:50 | ED.ARRPALP ---
HPI - Arrhythmia/Palpitations General Chief Complaint: Arrhythmia/Palpitations Stated Complaint: heart racing Time Seen by Provider: 12/29/24 23:37 Source: EMS Mode of arrival: EMS History of Present Illness HPI narrative: 49-year-old female with history of diabetes mellitus, panic disorder, generalized anxiety, ADHD, bipolar disorder, CAD, ALENA, morbid obesity, JUDIT. Complains of an episode of racing heart palpitation like symptoms 9:00 p.m. tonight at rest, lasting about 2 minutes, making her feel anxious, had some shortness of breath, no chest pain. No recent fevers chills cough illness symptoms. When directly asked she did admit to use of energy drink about 5:00 p.m. earlier this afternoon, 1st time taking an energy drink. Denies drug use. Denies history of previous cardiac problems, heart racing problems, did not wear previous heart monitoring. She denies blood clot problems, pain or swelling to either leg. Related Data Home Medications ?Medication ?Instructions ?Recorded ?Confirmed polyethylene glycol 3350 17 17 g PO PRN PRN Constipation 09/27/23 12/29/24 gram/dose oral powder (Miralax) famotidine 20 mg tablet 20 mg PO DAILY 03/27/24 12/29/24 minoxidil 2.5 mg tablet 2.5 mg PO DAILY 03/27/24 12/29/24 nicotine (polacrilex) 2 mg buccal 2 mg buccal Q2-4H PRN nicotine 04/15/24 12/29/24 lozenge cravings acyclovir 400 mg tablet 400 mg PO BID 11/18/24 12/29/24 sitagliptin phosphate 50 mg tablet 50 mg PO DAILY 11/18/24 12/18/24 (Januvia) Previous Rx's ?Medication ?Instructions ?Recorded pen needle, diabetic 32 gauge x #1,200 ea 11/20/22 (Aqinject Pen Needle) nystatin 100,000 unit/gram topical 1 applic topical BID #60 grams 11/26/23 powder 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-glucose,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,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 #1 ea 04/03/24 (Dexcom G7 Automation Control Integrator) lancets 28 gauge (FreeStyle #100 ea 04/03/24 Lancets) valacyclovir 500 mg tablet 500 mg PO DAILY #90 tabs 04/29/24 gabapentin 400 mg capsule 400 mg PO TID PRN chronic back 06/01/24 pain #90 caps metformin 1,000 mg tablet 1,000 mg PO BID #180 tabs 06/12/24 methocarbamol 500 mg tablet 500 mg PO TID PRN muscle spasm #90 07/24/24 tabs ondansetron 4 mg disintegrating 4 mg PO Q6H PRN nausea and 08/07/24 tablet vomiting #10 tabs trazodone 150 mg tablet 150 mg PO BEDTIME PRN insomnia #90 08/24/24 tabs insulin lispro 100 unit/mL 8 unit (0.08 mL) SUBCUT TID #15 mL 09/16/24 subcutaneous pen (Admelog SoloStar U-100 Insulin lispro) atorvastatin 40 mg tablet 40 mg PO DAILY #90 tabs 10/05/24 insulin glargine 100 unit/mL (3 60 unit (0.6 mL) SUBCUT QPM #15 mL 10/05/24 mL) subcutaneous pen (Lantus Solostar U-100 Insulin) blood-glucose sensor (Dexcom G6 #3 ea 10/08/24 Sensor device) ibuprofen 800 mg tablet 800 mg PO TID PRN pain #30 tabs 11/11/24 blood-glucose transmitter (Dexcom #1 ea 12/02/24 G6 Transmitter device) clonidine HCl 0.1 mg tablet 0.1 mg PO BID #60 tabs 12/02/24 oxcarbazepine 300 mg tablet 300 mg PO .COMPLEX #90 tabs 12/11/24 aripiprazole 10 mg tablet 10 mg PO DAILY #30 tabs 12/18/24 Allergies Allergy/AdvReac Type Severity Reaction Status Date / Time semaglutide (From Ozempic) Allergy Severe gastroparal Verified 12/29/24 23:35 ysis topiramate (From TOPAMAX) Allergy Unknown Confusion Verified 12/29/24 23:35 bupropion (From Wellbutrin) Allergy Confusion Verified 12/29/24 23:35 cephalexin (From Keflex) Allergy ITCHING Verified 12/29/24 23:35 Iodinated Contrast Media Allergy Vomiting Verified 12/29/24 23:35 sulfamethoxazole (From Allergy Swelling Verified 12/29/24 23:35 Bactrim) of Lip/Tongue/Throat trimethoprim (From Bactrim) Allergy Swelling Verified 12/29/24 23:35 of Lip/Tongue/Throat viloxazine AdvReac Severe suicidality Verified 12/29/24 23:35 Patient History Medical History (Updated 12/30/24 @ 01:13 by Hector Jaramillo MD) BMI 40.0-44.9, adult Lumbar spondylosis Low back pain Stimulant use disorder Perimenopause Vaginal discharge Nicotine addiction ADHD (attention deficit hyperactivity disorder) PTSD (post-traumatic stress disorder) Panic disorder with agoraphobia Presence of insulin pump MUSTAPHA (generalized anxiety disorder) Abnormal uterine bleeding (AUB) Chronic candidiasis of vulva and vagina JUDIT (obstructive sleep apnea) CAD (coronary artery disease) Mixed hyperlipidemia Tobacco dependence Type 2 diabetes mellitus with hyperglycemia, with long-term current use of insulin Bipolar 2 disorder Morbid obesity Surgical History History of robot-assisted laparoscopic hysterectomy (05/22/24) Status post cholecystectomy Status post tubal ligation History of tonsillectomy Status post delivery Status post delivery Status post delivery Family History Father Heart disease Hypertension Heart attack Mother Mental health problem Hypertension Social History household members: family Smoking Status: Current every day smoker alcohol intake: never Smoking Status: Current every day smoker tobacco type: cigarettes and vaping alcohol intake frequency: other Exam Narrative Exam Narrative: GENERAL: Well-developed patient, in mild distress. HEAD: Atraumatic. Normocephalic. EYES: Pupils equal round and reactive. Extraocular motions intact. No scleral icterus. No injection or drainage. ENT: Nose without bleeding, purulent drainage. Throat without erythema, tonsillar hypertrophy or exudate. Airway patent. NECK: Trachea midline. Non tender CARDIOVASCULAR: Regular rate and rhythm without murmurs, gallops, or rubs. RESPIRATORY: Clear to auscultation. Breath sounds equal bilaterally. No wheezes, rales, or rhonchi. GASTROINTESTINAL: Abdomen soft, non-tender, nondistended. EXTREMITIES: No edema or joint tenderness. BACK: Nontender without deformity or crepitance. No flank tenderness. NEURO: AOx3. Motor functions grossly nonfocal. SKIN: No rash or erythema of visible areas Initial Vital Signs Initial Vital Signs: Vital Signs Temperature 98.4 F 12/29/24 23:37 Pulse Rate 88 12/29/24 23:37 Respiratory Rate 20 12/29/24 23:37 Blood Pressure 141/89 H 12/29/24 23:37 Pulse Oximetry 99 12/29/24 23:37 Oxygen Delivery Method Room Air 12/29/24 23:37 Course Orders Ordered: ED Orders 12/29/24 23:37 XR chest 1V Stat Complete Blood Count AUTO DIFF Stat Comprehensive Metabolic Panel Stat [facility] Creatine Kinase MB Routine Lipase Stat Magnesium Stat NT-proBNP (BNP-Adult 18+) Stat Troponin I Stat EKG-12 Lead Stat Discontinued Medications Magnesium Sulfate (Magnesium Sulfate) 2 gm in 50 mls @ 150 mls/hr IV NOW ONE Stop: 12/30/24 00:57 Last Admin: 12/30/24 00:53 Dose: 150 mls/hr Documented By: WANG Co-signed By: Vital Signs Vital signs: Vital Signs - 8 hr 12/29/24 23:37 12/29/24 23:41 12/29/24 23:43 Temperature 98.4 F Pulse Rate 88 94 H 91 H Respiratory Rate 20 24 Blood Pressure 141/89 H Pulse Oximetry 99 99 Oxygen Delivery Method Room Air 12/29/24 23:43 12/30/24 00:00 12/30/24 00:00 Temperature Pulse Rate 97 H Respiratory Rate Blood Pressure 141/89 H 145/104 H Pulse Oximetry 98 Oxygen Delivery Method 12/30/24 00:30 12/30/24 00:30 12/30/24 01:00 Temperature Pulse Rate 93 H 93 H Respiratory Rate Blood Pressure 134/79 Pulse Oximetry 97 96 Oxygen Delivery Method 12/30/24 01:00 12/30/24 01:30 12/30/24 01:30 Temperature Pulse Rate 92 H Respiratory Rate Blood Pressure 123/65 120/70 Pulse Oximetry 94 Oxygen Delivery Method 12/30/24 02:00 12/30/24 02:00 Temperature Pulse Rate 92 H Respiratory Rate Blood Pressure 128/70 Pulse Oximetry 93 Oxygen Delivery Method MDM - Arrhythmia/Palpitations Lab Data Attestation: I reviewed the patient's lab results. Lab results narrative: White blood cell count 97924, hemoglobin 13.5, platelets adequate. Glucose 146. Normal renal function, serum potassium. Serum CO2 19 mild low. Sodium 136 slight low. Magnesium 1.3 decreased. Liver functions and lipase normal. Troponin negative/unmeasurable. BNP unmeasurable. 12/30/24 00:01 12/30/24 00:01 Labs: Lab Results 12/30/24 Range/Units 00:01 WBC 14.5 H (4.5-11.0) X10^3/uL RBC 4.74 (4.0-5.2) X10^6/uL Hgb 13.5 (12.0-16.0) g/dL Hct 39.9 (36-46) % MCV 84.1 (80-100) fL MCH 28.4 (26-34) PG MCHC 33.8 (30-36) % RDW 14.1 (11.6-14.8) % Plt Count 265 (150-400) X10^3/uL Neut % (Auto) 74.5 (50-75) % Lymph % (Auto) 14.7 L (25-40) % Dukes % (Auto) 7.6 (3-14) % Eos % (Auto) 1.5 L (2-4) % Baso % (Auto) 1.7 (0-2) % Neut # (Auto) 42164 H (7655-5326) /uL Lymph # (Auto) 2100 (8332-7623) /uL Dukes # (Auto) 1100 H (0-900) /uL Eos # (Auto) 200 (0-450) /uL Baso # (Auto) 200 H (0-100) /uL Sodium 136 L (137-145) mmol/L Potassium 3.6 (3.4-5.1) mmol/L Chloride 104 (98-107) mmol/L Carbon Dioxide 19 L (22-32) mmol/L BUN 16 (7-17) mg/dL Creatinine 0.78 (0.52-1.04) mg/dL Estimated GFR > 60 (>60) mL/min BUN/Creatinine Ratio 20.5 (6-22) Glucose 146 H (70-99) mg/dL Calcium 9.3 (8.4-10.2) mg/dL Magnesium 1.3 L (1.6-2.3) mg/dL Total Bilirubin 0.2 (0.2-1.3) mg/dL AST 22 (14-36) IU/L ALT 26 (<35) IU/L Alkaline Phosphatase 91 (38-126) U/L Troponin I < 0.012 (0.01-0.034) ng/mL NT-Pro-B Natriuret Pep < 20 (<125) pg/mL Total Protein 7.0 (6.3-8.2) g/dL Albumin 4.1 (3.5-5.0) g/dL Globulin 2.9 (1.7-4.1) g/dL Albumin/Globulin Ratio 1.4 (1.0-2.8) Lipase 270 (23-300) U/L Imaging Data Chest x-ray: Radiologist's Impresson: [address] [address] XRay Report Signed Patient: Jamila Foster MR#: [id number] : 1975 Acct:[id number] Age/Sex: 49 / F Date of Service: 12/29/24 Loc: ED Accession Number: [id number] Procedure: XR chest 1V Ordering Provider: Hector Jaramillo MD PROCEDURE: XR CHEST 1V INDICATIONS: heart racing TECHNIQUE: One view of the chest was acquired. COMPARISON: [facility], CR, XR CHEST 1V, 10/15/2024, 11:36. [facility], CR, XR CHEST 1V, 10/06/2024, 21:21. FINDINGS AND IMPRESSION: No dense airspace disease or pleural effusion on this single view study. Mild linear opacity at the right lung base likely atelectasis or focal scarring Heart size is at the upper limit of normal. Unremarkable osseous structures. Dictated by: Kuldip Busch M.D. on 12/30/2024 at 0:28 Approved by: Kuldip Busch M.D. on 12/30/2024 at 0:29 ECG Data Attestation: I personally reviewed and interpreted this ECG as follows: Interpretation: 2340. Normal sinus rhythm with rate of 89, no obvious ST segment elevation or depression changes. NH 168, QRS 78, QTC 430. MDM Narrative Medical decision making narrative: 49-year-old female with history of bipolar and anxiety and panic disorder with agoraphobia, diabetes, had resolved 2 minute brief duration of heart racing sensation few hours ago, heart rate 130s by her home pulse oximeter, no syncope or presyncope, no associated chest pain, mild transient shortness of breath. No previous arrhythmia problems. Resolved without specific treatment. Afebrile on triage, nontoxic appearing, normal heart tones. Sinus rhythm with normal rate on monitor without ectopy. EKG sinus rhythm without ischemic changes. Suspect might be related to her 1st exposure to energy drink preceding hours, versus some other cause. Labs pending. Chest x-ray no acute changes, no cardiomegaly, no infiltrates, no effusions. ED wet read. Chest x-ray, possible lower lobe atelectasis versus focal scarring, no infiltrates described, no fluid overload described. See radiology report. Lab data: White blood cell count 96072, hemoglobin 13.5, platelets adequate. Glucose 146. Normal renal function, serum potassium. Serum CO2 19 mild low. Sodium 136 slight low. Magnesium 1.3 decreased. Liver functions and lipase normal. Troponin negative/unmeasurable. BNP negative/unmeasurable. Magnesium low, IV magnesium 2 g ordered. Prior low serum magnesium levels also noted in medical records. Advised to avoid energy drinks, if that might have precipitated transient tachycardia event. If recurrent symptoms consider ambulatory cardiac monitoring. Continue chronic medications for now as prescribed. Recheck with regular provider advised next couple of days to evaluate for further symptoms and consider recheck magnesium level. Return precautions discussed. Discharge Plan Departure Patient Disposition: Home Clinical Impression: Heart palpitations, Hypomagnesemia Instructions: Arrhythmias Activity Restrictions/Additional Instructions: History of panic disorder, bipolar disorder, anxiety noted. Recent energy drink this afternoon. This evening had fast heart rate sensation for a couple of minutes with some shortness of breath. Could be tachycardia event, no abnormal heart rate here in the emergency department. Reassuring EKG and blood test results. Low magnesium was noted, but also has been noted in the past when measured, IV magnesium given. You did have an energy drink this afternoon apparently which is not usual for you, this might have precipitated a transient tachycardia fast heart rate problem. Please avoid energy drink products. Consider avoiding decongestants and caffeine products. Consider recheck with your regular doctor in the next couple of days, could recheck your magnesium blood level at that time as well. If symptoms recur without exposure to energy drink products, could consider ambulatory heart rate monitoring. Recheck with your regular doctor as above. Return to this/nearest emergency department for any change worsening symptoms or any concerns prior. Prescriptions: No Action famotidine 20 mg tablet 20 mg PO DAILY minoxidil 2.5 mg tablet 2.5 mg PO DAILY Patient Comments: [NO ORIGINAL SIG] metformin 1,000 mg tablet 1,000 mg PO BID Qty: 180 3RF ibuprofen 800 mg tablet 800 mg PO TID PRN (Reason: pain) Qty: 30 1RF acyclovir 400 mg tablet 400 mg PO BID Januvia 50 mg tablet 50 mg PO DAILY nicotine (polacrilex) 2 mg lozenge 2 mg buccal Q2-4H PRN (Reason: nicotine cravings) methocarbamol 500 mg tablet 500 mg PO TID PRN (Reason: muscle spasm) Qty: 90 1RF clonidine HCl 0.1 mg tablet 0.1 mg PO BID Qty: 60 2RF (DME) pen needle, diabetic [Aqinject Pen Needle] 32 gauge x 5/32 needle See Rx Instructions .Route Qty: 1200 3RF Rx Instructions: use to inject insulin 4-6 times a day as needed. (DME) Dexcom G7 Automation Control Integrator Misc See Rx Instructions .Route Qty: 1 0RF Rx Instructions: As directed (DME) lancets [FreeStyle Lancets] 28 gauge misc See Rx Instructions .Route Qty: 100 11RF Rx Instructions: use to check blood glucose three times a day. valacyclovir 500 mg tablet 500 mg PO DAILY Qty: 90 3RF gabapentin 400 mg capsule 400 mg PO TID PRN (Reason: chronic back pain) Qty: 90 1RF trazodone 150 mg tablet 150 mg PO BEDTIME PRN (Reason: insomnia) Qty: 90 0RF insulin lispro [Admelog SoloStar U-100 Insulin] 100 unit/mL insulin pen 8 unit SUBCUT TID Qty: 15 3RF atorvastatin 40 mg tablet 40 mg PO DAILY Qty: 90 0RF insulin glargine [Lantus Solostar U-100 Insulin] 100 unit/mL (3 mL) insulin pen 60 unit SUBCUT QPM Qty: 15 3RF (DME) Dexcom G6 Sensor Device See Rx Instructions .Route Qty: 3 6RF Rx Instructions: USE 1 SENSOR EVERY 10 DAYS (DME) Dexcom G6 Transmitter Device See Rx Instructions .Route Qty: 1 0RF Rx Instructions: As directed oxcarbazepine 300 mg tablet 300 mg PO .COMPLEX Qty: 90 2RF Rx Instructions: 300 mg orally once in AM and 2 tabs in PM aripiprazole 10 mg tablet 10 mg PO DAILY Qty: 30 2RF nystatin 100,000 unit/gram powder 1 applic topical BID Qty: 60 3RF polyethylene glycol 3350 [Miralax] 17 gram/dose powder 17 g PO PRN PRN (Reason: Constipation) ondansetron 4 mg tablet,disintegrating 4 mg PO Q6H PRN (Reason: nausea and vomiting) Qty: 10 0RF Referrals: Lavell Silva MD [Primary Care Provider, Family Practice] Stand Alone Forms: Patient Portal/API
[2024-12-30] VITALS: BP 145/104; PULSE 97; O2SAT 98
[2024-12-30 00:23] LABS: Add Manual Diff / Slide Review NO; Hematocrit 39.9 % (36-46); Hemoglobin 13.5 g/dL (12.0-16.0); Lymphocytes Absolute Auto 2100 /uL (1100-4500); Mean Corpuscular HGB Conc 33.8 % (30-36); Mean Corpuscular Hemoglobin 28.4 PG (26-34); Mean Corpuscular Volume 84.1 fL (80-100); Platelet Count 265 X10^3/uL (150-400)
[2024-12-30 00:25] LABS: Alanine Aminotransferase 26 IU/L (<35); Albumin 4.1 g/dL (3.5-5.0); Albumin Globulin Ratio 1.4 (1.0-2.8); Alkaline Phosphatase 91 U/L (38-126); Blood Urea Nitrogen 16 mg/dL (7-17); Calcium 9.3 mg/dL (8.4-10.2); Carbon Dioxide 19 mmol/L (22-32); Chloride 104 mmol/L (98-107); Estimated Glomerular Filt Rate > 60 mL/min (>60); Globulin 2.9 g/dL (1.7-4.1); Glucose 146 mg/dL (70-99); HEMOLYSIS < 15 (0-50); Lipase 270 U/L (23-300); Magnesium 1.3 mg/dL (1.6-2.3); Potassium 3.6 mmol/L (3.4-5.1); Sodium 136 mmol/L (137-145); Total Protein 7.0 g/dL (6.3-8.2)
[2024-12-30 00:30] VITALS: BP 134/79; PULSE 93; O2SAT 97
[2024-12-30 00:37] LABS: NT-proBNP (BNP-Adult 18+) < 20 pg/mL (<125); Troponin I < 0.012 ng/mL (0.01-0.034)
[2024-12-30] MEDS: MAGNESIUM SULFATE 2 GM/50 ML PIGGYBACK IV (00:53)
[2024-12-30 01:00] VITALS: BP 123/65; PULSE 93; O2SAT 96
[2024-12-30 01:30] VITALS: BP 120/70; PULSE 92; O2SAT 94
[2024-12-30 02:00] VITALS: BP 128/70; PULSE 92; O2SAT 93
[2024-12-31 06:37] LABS: Labcorp Creatine Kinase MB 1.9 ng/mL (0.0-5.3)
== END 2024-12-30 02:19 | disposition home or self-care (01) ==
PROVIDERS: Emergency Provider Emergency Medicine; PCP Family Medicine
DX: R00.2 Palpitations (principal); E83.42 Hypomagnesemia; F41.9 Anxiety disorder, unspecified
CPT/HCPCS: 36415; 71045; 80053; 82553; 83690; 83735; 83880; 84484; 85025; 93005; 96365; 99284; J3475

== ENCOUNTER → 2025-01-20 05:17 | Outpatient (CLI) | payer OTHER, SELFPAY | LOC: CAR 05:17 | PROVIDERS: PCP Family Medicine; Referring Provider Family Medicine; Visit Provider Family Medicine | DX: R00.2 Palpitations (principal); R00.0 Tachycardia, unspecified | CPT/HCPCS: 93246 ==